=== PATIENT | female | born 1935 | race Caucasian/White ===

== ENCOUNTER 2017-09-17 11:24 | Inpatient (IN) | payer MEDICARE ==
[2017-09-17] MEDS ORDERED: ACETAMINOPHEN 325 MG TABLET PO ONE (11:30)
[2017-09-17] MEDS ORDERED: IPRATROPIUM BROMIDE 0.02% NEB 0.5 MG/2.5 ML AMPUL NEB ONE (11:32)
[2017-09-17] MEDS ORDERED: ALBUTEROL SULFATE 0.083% NEB 2.5 MG/3 ML AMPUL NEB ONE (11:32)
[2017-09-17] MEDS ORDERED: CEFTRIAXONE 1 GM/D5W RTU 50 ML IV ONE (11:49)
[2017-09-17] MEDS ORDERED: AZITHROMYCIN INJ 500 MG VIAL IV ONE (11:49)
[2017-09-17] MEDS: MAGNESIUM SULFATE/D5W 1 GM/100 ML RTUPB IV SCH ×2 (11:59→14:26)
--- NOTE | 2017-09-17 12:01 | ER Document Report ---
ED Respiratory Problem - General Mode of Arrival: Medic Information source: Patient, Emergency Med Personnel <ERIBERTO GATES - Last Filed: 09/17/17 12:18> <FABIANO THOMPSON - Last Filed: 09/23/17 07:02> - General Stated Complaint: SHORTNESS OF BREATH Time Seen by Provider: 09/17/17 11:30 Notes: Patient is a chronically ill appearing 82-year-old female that presents to the emergency department today with complaints of respiratory distress. EMS reports on arrival the patient's oxygen saturation was 43% and she was cyanotic. On arrival here after breathing treatment the patient is saturating at 96-98%. Patient has an extensive smoking history spanning 70 years, still smoking now. Family states the patient has not been in the hospital in 53 years when she gave to her last daughter. Patient recently moved here from [place]. Patient also complains of fevers and a cough. Patient did receive a flushot this year. Patient denies abdominal pain, vomiting, or history of VA/CVA. (ERIBERTO GATES) - Related Data Allergies/Adverse Reactions: No Known Allergies Allergy (Unverified 09/17/17 15:17) Past Medical History - General Information source: Patient - Social History Smoking Status: Current Every Day Smoker Cigarette use (# per day): Yes - extensive smoking history for 70 years Frequency of alcohol use: None Drug Abuse: None Lives with: Family Family History: Reviewed & Not Pertinent Pulmonary Medical History: Reports: Hx COPD Surgical Hx: Negative <ERIBERTO GATES - Last Filed: 09/17/17 12:18> Review of Systems - Review of Systems Constitutional: See HPI, Fever EENT: No symptoms reported Cardiovascular: No symptoms reported Respiratory: See HPI, Cough, Short of breath Gastrointestinal: denies: Abdominal pain, Vomiting Genitourinary: No symptoms reported Female Genitourinary: No symptoms reported Musculoskeletal: No symptoms reported Skin: No symptoms reported Hematologic/Lymphatic: No symptoms reported Neurological/Psychological: No symptoms reported -: Yes All other systems reviewed and negative <ERIBERTO GATES - Last Filed: 09/17/17 12:18> Physical Exam <ERIBERTO GATES - Last Filed: 09/17/17 12:18> <FABIANO THOMPSON - Last Filed: 09/23/17 07:02> - Vital signs Vitals: Resp BP Pulse Ox 26 H 149/65 H 96 09/17/17 11:27 09/17/17 11:27 09/17/17 11:27 - Notes Notes: Physical Exam: General: Alert, frail, cachectic. HEENT: Normocephalic. Atraumatic. PERRL. Extraocular movements intact. Oropharynx clear. Neck: Supple. Non-tender. Respiratory: Respiratory distress on scene according to EMS. Oxygen saturation 96-98% currently with breathing treatment. Intercostal retractions, mild tachypnea, coarse breath sounds throughout bilaterally. Cardiovascular: Mildly tachycardic, regular rhythm. Abdominal: Normal Inspection. Non-tender. No distension. Normal Bowel Sounds. Back: Non-tender. No deformity or step off. Extremities: Moves all four extremities. Upper extremities: Normal inspection. Normal ROM. Lower extremities: Normal inspection. No edema. Normal ROM. Neurological: Normal cognition. AAOx4. Normal speech. Psychological: Normal affect. Normal Mood. Skin: Warm. Dry. Normal color. (ERIBERTO GATES) Course - Laboratory Result Diagrams: 09/17/17 11:47 09/17/17 11:47 <ERIBERTO GATES - Last Filed: 09/17/17 12:18> - Laboratory Result Diagrams: 09/23/17 04:00 09/23/17 04:00 - Diagnostic Test Radiology reviewed: Image reviewed - EKG Interpretation by Ak Rate: Tachycardia <FABIANO THOMPSON - Last Filed: 09/23/17 07:02> - Re-evaluation Re-evalutation: 09/17/17 14:33 Patient shows pneumonia on chest x-ray. Patient became altered during emergency room stay CO2 found to be 70 BiPAP was placed with improvement in mental status. Patient being treated for community-acquired pneumonia with ceftriaxone and azithromycin. Discussed case with Dr. Mata who will accept patient (FABIANO THOMPSON) - Vital Signs Vital signs: Temp Pulse Resp BP Pulse Ox 97.8 F 76 23 H 129/68 H 91 L 09/23/17 03:08 09/23/17 04:15 09/23/17 04:15 09/23/17 03:08 09/23/17 04:15 - Laboratory Laboratory results interpreted by me: 09/17/17 09/17/17 09/17/17 11:47 11:47 11:47 WBC 14.3 H Seg Neuts % (Manual) 83 H Band Neutrophils % 2 L Lymphocytes % (Manual) 6 L Metamyelocytes % 1 H Abs Neuts (Manual) 12.3 H Carbonic Acid ABG pH ABG pCO2 ABG pO2 ABG HCO3 ABG Total CO2 ABG O2 Saturation VBG pH VBG pCO2 Sodium 136.6 L Chloride 93 L Carbon Dioxide 35 H BUN 52 H Creatinine 1.40 H Est GFR ( Amer) 43 L Est GFR (Non-Af Amer) 36 L Glucose 137 H AST 53 H NT-Pro-B Natriuret Pep 3040 H Total Protein 6.2 L Urine Protein Urine Glucose (UA) Urine Blood 09/17/17 09/17/17 09/17/17 11:47 13:21 15:05 WBC Seg Neuts % (Manual) Band Neutrophils % Lymphocytes % (Manual) Metamyelocytes % Abs Neuts (Manual) Carbonic Acid 1.61 H 2.04 H ABG pH 7.29 L 7.24 L ABG pCO2 53.5 H 67.7 H ABG pO2 66.5 L 108.0 H ABG HCO3 28.2 H ABG Total CO2 26.7 H 30.3 H ABG O2 Saturation 90.7 L VBG pH 7.25 L VBG pCO2 70.3 H* Sodium Chloride Carbon Dioxide BUN Creatinine Est GFR ( Amer) Est GFR (Non-Af Amer) Glucose AST NT-Pro-B Natriuret Pep Total Protein Urine Protein Urine Glucose (UA) Urine Blood 09/17/17 15:15 WBC Seg Neuts % (Manual) Band Neutrophils % Lymphocytes % (Manual) Metamyelocytes % Abs Neuts (Manual) Carbonic Acid ABG pH ABG pCO2 ABG pO2 ABG HCO3 ABG Total CO2 ABG O2 Saturation VBG pH VBG pCO2 Sodium Chloride Carbon Dioxide BUN Creatinine Est GFR ( Amer) Est GFR (Non-Af Amer) Glucose AST NT-Pro-B Natriuret Pep Total Protein Urine Protein 100 H Urine Glucose (UA) 50 H Urine Blood SMALL H Discharge <ERIBERTO GATES - Last Filed: 09/17/17 12:18> - Discharge Admitting Provider: Mata Unit Admitted: IMCU <FABIANO THOMPSON - Last Filed: 09/23/17 07:02> - Discharge Condition: Critical Disposition: ADMITTED INPATIENT Scribe Attestation: 09/23/17 07:02 I personally performed the services described in the documentation, reviewed and edited the documentation which was dictated to the scribe in my presence, and it accurately records my words and actions. (FABIANO THOMPSON) Scribe Documentation - Scribe Written by Scribe:: Hans Hood, 09/17/2017 1220 acting as scribe for :: Placido <ERIBERTO GATES - Last Filed: 09/17/17 12:18>
[2017-09-17 12:02] LABS: HEMATOCRIT 44.5 % (36.0-47.0); MEAN CORPUSCULAR HEMOGLOBIN 31.7 pg (27.0-33.4); MEAN CORPUSCULAR HGB CONC 33.8 g/dL (32.0-36.0); MEAN CORPUSCULAR VOLUME 94 fl (80-97); PLATELET COUNT 201 10^3/uL (150-450); RED BLOOD COUNT 4.75 10^6/uL (3.72-5.28); WHITE BLOOD COUNT 14.3 10^3/uL (4.0-10.5)
[2017-09-17 12:09] LABS: INTERNATIONAL RATION (INR) 0.83; PROTHROMBIN TIME 12.1 SEC (11.4-15.4)
[2017-09-17 12:21] LABS: ABSOLUTE LYMPHOCYTES# (MANUAL) 0.9 10^3/uL (0.5-4.7); ABSOLUTE MONOCYTES # (MANUAL) 1.1 10^3/uL (0.1-1.4); ABSOLUTE NEUTROPHILS# (MANUAL) 12.3 10^3/uL (1.7-8.2); BAND NEUTROPHILS % (MANUAL) 2 % (3-5); BASOPHILS % (MANUAL) 0 % (0-2); EOSINOPHILS % (MANUAL) 0 % (0-6); LYMPHOCYTES % (MANUAL) 6 % (13-45); METAMYELOCYTES % (MANUAL) 1 % (0); MONOCYTES % (MANUAL) 8 % (3-13); SEGMENTED NEUTROPHILS % (MAN) 83 % (42-78); TOTAL CELLS COUNTED 100
[2017-09-17 12:22] LABS: ANISOCYTOSIS SLIGHT; PLATELET COMMENT ADEQUATE; TOXIC GRANULATION SLIGHT
[2017-09-17 12:25] LABS: ALANINE AMINOTRANSFERASE 46 U/L (9-52); ALBUMIN 3.7 g/dL (3.5-5.0); ALKALINE PHOSPHATASE 93 U/L (38-126); ANION GAP 9 (5-19); ASPARTATE AMINO TRANSFERASE 53 U/L (14-36); BILIRUBIN,DIRECT 0.4 mg/dL (0.0-0.4); BILIRUBIN,TOTAL 0.4 mg/dL (0.2-1.3); BLOOD UREA NITROGEN 52 mg/dL (7-20); CALCIUM 9.3 mg/dL (8.4-10.2); CARBON DIOXIDE 35 mmol/L (22-30); CHLORIDE 93 mmol/L (98-107); GLUCOSE 137 mg/dL (75-110); POTASSIUM 3.6 mmol/L (3.6-5.0); SODIUM 136.6 mmol/L (137-145); TOTAL PROTEIN 6.2 g/dL (6.3-8.2)
--- NOTE | 2017-09-17 12:26 | RADIOLOGY REPORT (SQ) ---
EXAM DESCRIPTION: CHEST SINGLE VIEW portable COMPLETED DATE/TIME: 09/17/2017 12:10 pm REASON FOR STUDY: sob, fever COMPARISON: None. EXAM PARAMETERS: NUMBER OF VIEWS: One view. TECHNIQUE: Single frontal radiographic view of the chest acquired. Portable RADIATION DOSE: NA LIMITATIONS: None. FINDINGS: LUNGS AND PLEURA: Areas of density are noted in the left mid and lower lung field, with th e history of fever, concerning for pneumonia. Needs followup imaging to ensure clearing and exclude underlying lesion. Right lung field is clear. MEDIASTINUM AND HILAR STRUCTURES: No masses. Contour normal. Partially obscured by scoliosis. HEART AND VASCULAR STRUCTURES: Heart normal in size. Normal vasculature. BONES: Mild scoliosis thoracic spine, convex to to the right. HARDWARE: None in the chest. OTHER: No other significant finding. IMPRESSION: Areas of density left mid and lower lung field, concerning for pneumonia. Need follow-up imaging to ensure clearingand exclude underlying lesion. TECHNICAL DOCUMENTATION: JOB ID: [id number] [employer]- All Rights Reserved Reading location - IP/workstation name: [email or web address]
[2017-09-17 12:39] LABS: TROPONIN I 1.05 ng/mL
[2017-09-17] MEDS ORDERED: CEFTRIAXONE SODIUM 1,000 MG in NORMAL SALINE 100 ML IV ONE (13:00)
[2017-09-17 13:08] LABS: VENOUS BLOOD BASE EXCESS 0.2 mmol/L; VENOUS BLOOD HCO3 29.8 mmol/L (20-32); VENOUS BLOOD PH 7.25 (7.30-7.42)
[2017-09-17 13:13] LABS: VENOUS BLOOD PCO2 70.3 mmHg (35-63)
--- NOTE | 2017-09-17 13:26 | EKG REPORT ---
SEVERITY:- ABNORMAL ECG - SINUS TACHYCARDIA BIATRIAL ABNORMALITIES PROBABLE INFERIOR INFARCT, OLD CONSIDER ANTERIOR INFARCT : Confirmed by: Campbell Robbins MD 17-Sep-2017 13:24:53
[2017-09-17 13:47] LABS: ARTERIAL BLOOD BASE EXCESS -2.3 mmol/L; ARTERIAL BLOOD H2CO3 1.61 mmol/L (1.05-1.35); ARTERIAL BLOOD O2 SATURATION 90.7 % (94-98); ARTERIAL BLOOD PCO2 53.5 mmHg (35-45); ARTERIAL BLOOD PH 7.29 (7.35-7.45); ARTERIAL BLOOD PO2 66.5 mmHg (80-100); ARTERIAL BLOOD TOTAL CO2 26.7 mmol/L (21-25)
[2017-09-17 13:48] LABS: ARTERIAL BLOOD FIO2 40%
[2017-09-17] MEDS ORDERED: IPRATROPIUM/ALBUTEROL 0.5-2.5 MG/3 ML AMPUL NEB STA (14:59)
[2017-09-17] MEDS ORDERED: ALBUTEROL SULFATE 0.083% NEB 2.5 MG/3 ML AMPUL NEB PRN (15:00)
[2017-09-17] MEDS ORDERED: VANCOMYCIN HCL INJ 1000 MG VIAL IV SCH (15:00)
[2017-09-17] MEDS ORDERED: PIPERACILLIN/TAZOBACTAM 3.375 GM VIAL IV SCH (15:00)
[2017-09-17] MEDS ORDERED: HYDRALAZINE HCL INJ/PF 20 MG/1 ML SDV IV PRN (15:01)
[2017-09-17] MEDS ORDERED: ACETAMINOPHEN 650 MG SUPP.RECT PR PRN (15:02)
[2017-09-17 15:28] LABS: ARTERIAL BLOOD BASE EXCESS -0.8 mmol/L; ARTERIAL BLOOD FIO2 50%; ARTERIAL BLOOD H2CO3 2.04 mmol/L (1.05-1.35); ARTERIAL BLOOD HCO3 28.2 mmol/L (20-26); ARTERIAL BLOOD O2 SATURATION 96.9 % (94-98); ARTERIAL BLOOD PCO2 67.7 mmHg (35-45); ARTERIAL BLOOD PH 7.24 (7.35-7.45); ARTERIAL BLOOD TOTAL CO2 30.3 mmol/L (21-25)
[2017-09-17 15:58] LABS: APPEARANCE,URINE SLIGHTLY-CLOUDY; BILIRUBIN,URINE NEGATIVE (NEGATIVE); COLOR,URINE YELLOW; GLUCOSE, URINE 50 mg/dL (NEGATIVE); KETONES,URINE NEGATIVE (NEGATIVE); LEUKOCYTE ESTERASE,URINE NEGATIVE (NEGATIVE); NITRITE,URINE NEGATIVE (NEGATIVE); PROTEIN,URINE 100 mg/dL (NEGATIVE); URINE SPECIFIC GRAVITY 1.014; UROBILINOGEN,URINE NEGATIVE mg/dL (<2.0)
[2017-09-17] MEDS ORDERED: HYDROCORTISONE SOD SUCCINATE INJ/PF 100 MG/2 ML SDV IV ONE (16:00)
--- NOTE | 2017-09-17 16:40 | PDOC H&P ---
History of Present Illness Admission Date/PCP: 09/17/2017 MACHO LIRA MD Patient complains of: Daughter found her mother confused, with blue lips and short of breath History of Present Illness: TIFFANIE MEIER is a 82 year old female with PMH of possible Afib on Diltiazem per family, HTN, COPD (only using an albuterol inhaler at home), and continued Tobacco use. Patient's family describes her as normally active and independent. She was helping to mop a floor on a prior day. Patient is now obtunded at the time of the exam, supported on BIPAP with hypercapnea, hopoxic respiratory failure. Family describes her as complaining of getting a cold several days ago. They describe a productive cough with yellow sputum, and a temperature elevation of 99.7. She was noted to have a temperature of 101 in the ED. CXR was consistent with PNA, and her BP was 70s/50s, and tachcardia present, consistent with Septic Shock picture with a PNA source. Patient was responding to limited fluid boluses in the ED, after approximately 400cc, her BP was 100/50 and HR in 80s. I will start stress dose steroids. Family at the bedside states that patient is a Full Code. We will monitor her in the ICU. She is not currently on pressors, but this is a possiblity. Her Afib is rate controled, in the 80s. Her initial lactic acid is non-elevated. Her BNP is elevated, along with her troponin x1. Will trend her troponins. Her family denied any complaints of chest pain during her presentation. Cardiology was consulted, TTE has been ordered. Blood cultures pending, and patient received Azithromycin/Rocephin in ED, but will be continued on Vancomycin/Levaquin/Zosyn after admission. Past Medical History Cardiac Medical History: Reports: Atrial Fibrillation, Hypertension Denies: Congestive Heart Failure, Hyperlipidema Pulmonary Medical History: Reports: Chronic Obstructive Pulmonary Disease (COPD) Denies: Intubation Endocrine Medical History: Denies: Diabetes Mellitus Type 1, Diabetes Mellitus Type 2 Renal/ Medical History: Denies: Chronic Kidney Disease, Nephrolithiasis GI Medical History: Denies: Cirrhosis Past Surgical History Past Surgical History: Reports: None Social History Lives with: Family - her daughter and grand daughter Smoking Status: Current Every Day Smoker Frequency of Alcohol Use: None Hx Recreational Drug Use: No Hx Prescription Drug Abuse: No Family History Family History: COPD, Hypertension Parental Family History Reviewed: Yes - both copd and HTN was consistent in her family hx Children Family History Reviewed: No Sibling(s) Family History Reviewed.: No Medication/Allergy Home Medications: Albuterol Sulfate [Proair HFA Inhalation Aerosol 8.5 gm MDI] 2 puff IH Q4HP PRN 09/17/17 Bimatoprost [Lumigan] 1 drop OU QHS 09/17/17 Diltiazem HCl [Diltiazem 24Hr ER] 180 mg PO DAILY 09/17/17 Hydrochlorothiazide [Hydrochlorothiazide] 25 mg PO DAILY 09/17/17 Olmesartan Medoxomil [Olmesartan Medoxomil] 20 mg PO DAILY 09/17/17 Umeclidinium Brm/Vilanterol Tr [Anoro Ellipta 62.5-25 Mcg INH] 1 puff IH DAILY 09/17/17 Unobtainable [Unobtainable] 09/17/17 Vit A/Vit C/Vit E/Zinc/Copper [Preservision Areds Softgel] 1 cap PO DAILY Allergies/Adverse Reactions: No Known Allergies Allergy (Unverified 09/17/17 15:17) Review of Systems ROS unobtainable: Due to mental status - details obtained from daughter at bedside Constitutional: PRESENT: chills, fatigue, fever(s). ABSENT: headache(s) Eyes: ABSENT: visual disturbances Ears: ABSENT: hearing changes Nose, Mouth, and Throat: ABSENT: headache(s), vertigo Cardiovascular: ABSENT: edema, orthropnea Respiratory: PRESENT: dyspnea. ABSENT: cough, hemoptysis Gastrointestinal: ABSENT: coffee ground emesis, hematemesis Genitourinary: PRESENT: hematuria. ABSENT: dysuria Neurological: PRESENT: confusion, weakness. ABSENT: abnormal speech, convulsions, focal weakness, lack of coordination, vertigo Psychiatric: ABSENT: anxiety, depression Endocrine: ABSENT: cold intolerance, heat intolerance Hematologic/Lymphatic: ABSENT: easy bleeding, easy bruising Physical Exam Vital Signs: Temp Pulse Resp BP Pulse Ox 17 95 09/17/17 14:05 09/17/17 14:05 Intake & Output 09/16/17 09/17/17 09/18/17 06:59 06:59 06:59 Weight 49.5 kg General appearance: PRESENT: disheveled, mild distress. ABSENT: cooperative Head exam: PRESENT: atraumatic, normocephalic Eye exam: PRESENT: EOMI, PERRLA Ear exam: PRESENT: normal external ear exam. ABSENT: bleeding Mouth exam: PRESENT: moist, neck supple. ABSENT: dry mucosa, laceration Neck exam: ABSENT: JVD, meningismus, tenderness, thyromegaly Respiratory exam: PRESENT: decreased breath sounds, prolonged expiratory phas, wheezes. ABSENT: accessory muscle use, crackles, rales, rhonchi, stridor Cardiovascular exam: PRESENT: irregular rhythm, +S1, +S2. ABSENT: bradycardia, tachycardia Pulses: PRESENT: normal radial pulses, +2 pedal pulses bilateral Vascular exam: PRESENT: normal capillary refill. ABSENT: pallor GI/Abdominal exam: PRESENT: normal bowel sounds, soft. ABSENT: ascites, distended, guarding, Bauer's sign, organolmegaly, rebound, rigid Extremities exam: ABSENT: clubbing, joint swelling, pedal edema, +2 edema Neurological exam: PRESENT: altered. ABSENT: awake, oriented to person, oriented to place, oriented to time Psychiatric exam: ABSENT: agitated, anxious, appropriate affect Focused psych exam: ABSENT: delusional, paranoid, pressured speech Skin exam: PRESENT: other - vericose veins on bilateral lower extremities. ABSENT: cyanosis, dry, erythema Results Laboratory Results: 09/17/17 11:47 09/17/17 11:47 09/17/17 09/17/17 09/17/17 11:47 11:47 11:47 WBC 14.3 H RBC 4.75 Hgb 15.0 Hct 44.5 MCV 94 MCH 31.7 MCHC 33.8 RDW 14.0 Plt Count 201 Seg Neutrophils % Not Reportable Lymphocytes % Not Reportable Monocytes % Not Reportable Eosinophils % Not Reportable Basophils % Not Reportable Absolute Neutrophils Not Reportable Absolute Lymphocytes Not Reportable Absolute Monocytes Not Reportable Absolute Eosinophils Not Reportable Absolute Basophils Not Reportable Carbonic Acid HCO3/H2CO3 Ratio ABG pH ABG pCO2 ABG pO2 ABG HCO3 ABG O2 Saturation ABG Base Excess VBG pH VBG pCO2 VBG HCO3 VBG Base Excess FiO2 Sodium 136.6 L Potassium 3.6 Chloride 93 L Carbon Dioxide 35 H Anion Gap 9 BUN 52 H Creatinine 1.40 H Est GFR ( Amer) 43 L Est GFR (Non-Af Amer) 36 L Glucose 137 H Lactic Acid 1.4 Calcium 9.3 Magnesium 2.3 Total Bilirubin 0.4 AST 53 H ALT 46 Alkaline Phosphatase 93 Total Protein 6.2 L Albumin 3.7 09/17/17 09/17/17 09/17/17 11:47 13:21 15:05 WBC RBC Hgb Hct MCV MCH MCHC RDW Plt Count Seg Neutrophils % Lymphocytes % Monocytes % Eosinophils % Basophils % Absolute Neutrophils Absolute Lymphocytes Absolute Monocytes Absolute Eosinophils Absolute Basophils Carbonic Acid 1.61 H 2.04 H HCO3/H2CO3 Ratio 15:1 13:1 ABG pH 7.29 L 7.24 L ABG pCO2 53.5 H 67.7 H ABG pO2 66.5 L 108.0 H ABG HCO3 25.0 28.2 H ABG O2 Saturation 90.7 L 96.9 ABG Base Excess -2.3 -0.8 VBG pH 7.25 L VBG pCO2 70.3 H* VBG HCO3 29.8 VBG Base Excess 0.2 FiO2 40% 50% Sodium Potassium Chloride Carbon Dioxide Anion Gap BUN Creatinine Est GFR ( Amer) Est GFR (Non-Af Amer) Glucose Lactic Acid Calcium Magnesium Total Bilirubin AST ALT Alkaline Phosphatase Total Protein Albumin 09/17/17 11:47 Troponin I 1.050 NT-Pro-B Natriuret Pep 3040 H EKG Comments: ekg was repeated, no signs of STEMI in the setting of elevated troponin x1 Impressions: Chest X-Ray 09/17/17 11:31 IMPRESSION: Areas of density left mid and lower lung field, concerning for pneumonia. Need follow-up imaging to ensure clearingand exclude underlying lesion. Assessment & Plan - Diagnosis (1) Septic shock Is this a current diagnosis for this admission?: Yes Plan: admitted to ICU for close monitoring. responding to limited fluid boluses given at present. 1st lactic acid, no elevation. will repeat lactic acid within 6 hours. elevated troponin, possibly secondary to sepsis: Dr. Moreno consulted TTE pending. Continue IVF support, adding stress dose steroids. at present her 70/50s improved to 100/50s. (2) Pneumonia Is this a current diagnosis for this admission?: Yes Plan: Blood cultures x2 taken, pending. in ED she received azithromycin/Rocephin. will continue Vanc/Levaquin/Zosyn supportive BIPAP and IVF support (3) KEITH (acute kidney injury) Is this a current diagnosis for this admission?: Yes Plan: Monitor renal function with IVF support. likely injury secondary to Sepsis. family denies a history of renal failure. (4) Acute respiratory failure with hypoxia and hypercapnia Is this a current diagnosis for this admission?: Yes Plan: BIPAP supported, will monitor in ICU. repeating ABG, now that he has been BIPAP supported for 1 hour. adding scheduled Duonebs, IV steroids. (5) COPD (chronic obstructive pulmonary disease) Is this a current diagnosis for this admission?: Yes Plan: scheduling Duonebs, and IV steroids continue BIPAP support. (6) Hypertension Is this a current diagnosis for this admission?: Yes Plan: holding home medications due to Hypotension at present (7) Atrial fibrillation Is this a current diagnosis for this admission?: Yes Plan: at present she is rate controled w/ HR in 70s-80s. will monitor in ICU. normally takes PO Diltiazem at home. (8) Leukocytosis Is this a current diagnosis for this admission?: Yes Plan: secondary to PNA. monitor (9) Elevated troponin Is this a current diagnosis for this admission?: Yes Plan: consulted cardiology. possibly secondary to sepsis or demand ischemia family denied any complaints of chest pain prior to coming to the hospital. trending troponins, and check a TTE - Time Time Spent: 30 to 50 Minutes - Inpatient Certification Based on my medical assessment, after consideration of the patient's comorbidities, presenting symptoms, or acuity I expect that the services needed warrant INPATIENT care.: Yes I certify that my determination is in accordance with my understanding of Medicare's requirements for reasonable and necessary INPATIENT services [42 CFR 412.3e].: Yes Medical Necessity: Need Close Monitoring Due to Risk of Patient Decompensation, Need For IV Fluids, Need For Continuous Telemetry Monitoring
[2017-09-17] MEDS ORDERED: LEVOFLOXACIN 500 MG/D5W RTU 500 MG/100 ML RTUPB IV ONE (17:00)
--- NOTE | 2017-09-17 17:24 | EKG REPORT ---
SEVERITY:- ABNORMAL ECG - SINUS RHYTHM PACS VENTRICULAR BIGEMINY BIATRIAL ABNORMALITIES BORDERLINE IVCD WITH LAD PROBABLE INFERIOR INFARCT, OLD CONSIDER ANTERIOR INFARCT LATERAL LEADS ARE ALSO INVOLVED : Confirmed by: Campbell Robbins MD 17-Sep-2017 17:23:52
[2017-09-17] MEDS: PIPERACILLIN SODIUM/TAZOBACTAM 3.375 GM in NORMAL SALINE 100 ML IV SCH ×2 (18:13→23:13)
[2017-09-17 18:32] LABS: ARTERIAL BLOOD H2CO3 1.71 mmol/L (1.05-1.35); ARTERIAL BLOOD HCO3 25.8 mmol/L (20-26); ARTERIAL BLOOD O2 SATURATION 97.5 % (94-98); ARTERIAL BLOOD PCO2 56.9 mmHg (35-45); ARTERIAL BLOOD PH 7.27 (7.35-7.45); ARTERIAL BLOOD PO2 112.4 mmHg (80-100); ARTERIAL BLOOD TOTAL CO2 27.5 mmol/L (21-25)
[2017-09-17] MEDS ORDERED: NORMAL SALINE 1000 ML 1,000 ML IV PRN (18:34)
[2017-09-17 18:37] LABS: ARTERIAL BLOOD FIO2 40%
[2017-09-17] MEDS ORDERED: ACETAMINOPHEN 325 MG TABLET PO PRN (18:39)
[2017-09-17] MEDS: IPRATROPIUM BROMIDE 0.02% NEB 0.5 MG/2.5 ML AMPUL NEB SCH (19:57)
[2017-09-17] MEDS: LEVALBUTEROL HCL NEB 1.25 MG/3 ML AMPUL NEB SCH (19:57)
[2017-09-17] MEDS ORDERED: NORMAL SALINE 1000 ML 1,000 ML IV ONE (20:15)
--- NOTE | 2017-09-17 20:41 | Progress Note ---
Provider Note Provider Note: Sepsis second note. patient was evaluated within 6 hours of admission. She was responding well to treatment, BP was 112/60s, MAP 77. she was mentating well, Alert and oriented x3. Elevated troponin was flat at 1.0 approximately. Denied chest pain. Will continue IVF support and stress steroid support. Continue broad spectrum antibiotics. Continue BIPAP with increased RR settings to target reducing her pCO2. Good perfusion on exam. Good cappillary refill, good skin color, 2+ radial pulses bilaterally, NSR with regular rate
[2017-09-17] MEDS: VANCOMYCIN HCL 500 MG in DEXTROSE 5%-WATER 100 ML IV SCH (21:24)
[2017-09-17] MEDS: HYDROCORTISONE SOD SUCCINATE INJ/PF 100 MG/2 ML SDV IV SCH (21:33)
[2017-09-18] MEDS: LEVALBUTEROL HCL NEB 1.25 MG/3 ML AMPUL NEB SCH ×6 (00:25→21:14)
[2017-09-18] MEDS: IPRATROPIUM BROMIDE 0.02% NEB 0.5 MG/2.5 ML AMPUL NEB SCH ×6 (00:25→21:15)
[2017-09-18] MEDS ORDERED: NORMAL SALINE 500 ML IV ONE (01:30)
[2017-09-18 04:25] LABS: HEMATOCRIT 40.2 % (36.0-47.0); HEMOGLOBIN 13.2 g/dL (12.0-15.5); MEAN CORPUSCULAR HEMOGLOBIN 30.8 pg (27.0-33.4); MEAN CORPUSCULAR HGB CONC 32.9 g/dL (32.0-36.0); MEAN CORPUSCULAR VOLUME 94 fl (80-97); PLATELET COUNT 166 10^3/uL (150-450); RED CELL DISTRIBUTION WIDTH 13.8 % (11.5-14.0)
[2017-09-18 04:46] LABS: ALANINE AMINOTRANSFERASE 49 U/L (9-52); ALBUMIN 2.6 g/dL (3.5-5.0); ALKALINE PHOSPHATASE 64 U/L (38-126); ANION GAP 6 (5-19); ASPARTATE AMINO TRANSFERASE 48 U/L (14-36); BILIRUBIN,DIRECT 0.2 mg/dL (0.0-0.4); BILIRUBIN,TOTAL 0.2 mg/dL (0.2-1.3); BLOOD UREA NITROGEN 48 mg/dL (7-20); CALCIUM 7.9 mg/dL (8.4-10.2); CARBON DIOXIDE 32 mmol/L (22-30); CHLORIDE 102 mmol/L (98-107); GLUCOSE 113 mg/dL (75-110); SODIUM 139.9 mmol/L (137-145); TOTAL PROTEIN 4.9 g/dL (6.3-8.2)
[2017-09-18 04:53] LABS: FREE T4 (FREE THYROXINE) 1.11 ng/dL (0.78-2.19)
[2017-09-18 04:57] LABS: ABSOLUTE LYMPHOCYTES# (MANUAL) 0.4 10^3/uL (0.5-4.7); ABSOLUTE MONOCYTES # (MANUAL) 1.3 10^3/uL (0.1-1.4); ABSOLUTE NEUTROPHILS# (MANUAL) 12.3 10^3/uL (1.7-8.2); BAND NEUTROPHILS % (MANUAL) 7 % (3-5); BASOPHILS % (MANUAL) 0 % (0-2); EOSINOPHILS % (MANUAL) 0 % (0-6); LYMPHOCYTES % (MANUAL) 3 % (13-45); MONOCYTES % (MANUAL) 9 % (3-13); SEGMENTED NEUTROPHILS % (MAN) 81 % (42-78); TOTAL CELLS COUNTED 100
[2017-09-18 04:59] LABS: BURR CELLS 1+; PLATELET COMMENT ADEQUATE; PLATELET LARGE PRESENT; POIKILOCYTOSIS 1+; SCHISTOCYTES SLIGHT; TEAR DROP CELLS 1+; TOXIC GRANULATION SLIGHT; TOXIC VACUOLATION PRESENT
[2017-09-18 05:07] LABS: THYROID STIMULATING HORMONE 2.29 uIU/mL (0.47-4.68)
[2017-09-18] MEDS: HYDROCORTISONE SOD SUCCINATE INJ/PF 100 MG/2 ML SDV IV SCH ×3 (06:12→22:09)
[2017-09-18] MEDS: PIPERACILLIN SODIUM/TAZOBACTAM 3.375 GM in NORMAL SALINE 100 ML IV SCH ×4 (06:12→23:20)
[2017-09-18 06:41] LABS: ARTERIAL BLOOD BASE EXCESS -1.2 mmol/L; ARTERIAL BLOOD H2CO3 1.51 mmol/L (1.05-1.35); ARTERIAL BLOOD HCO3 25.5 mmol/L (20-26); ARTERIAL BLOOD O2 SATURATION 93.8 % (94-98); ARTERIAL BLOOD PCO2 50.1 mmHg (35-45); ARTERIAL BLOOD PH 7.32 (7.35-7.45); ARTERIAL BLOOD PO2 74.6 mmHg (80-100)
[2017-09-18 06:43] LABS: ARTERIAL BLOOD FIO2 40%
--- NOTE | 2017-09-18 09:12 | RADIOLOGY REPORT (SQ) ---
EXAM DESCRIPTION: CHEST SINGLE VIEW COMPLETED DATE/TIME: 09/18/2017 6:46 am REASON FOR STUDY: pneumonia COMPARISON: Previous day. NUMBER OF VIEWS: One view. TECHNIQUE: Single frontal radiographic image of the chest acquired. LIMITATIONS: None. FINDINGS: LUNGS AND PLEURA: Interval increase in size of abnormal density lateral to the left hilum. There are associated air bronchograms. There is a background of COPD. No effusions MEDIASTINUM AND HEART: Stable heart size and mediastinal structures. BONY STRUCTURES: No acute findings. HARDWARE: None. OTHER: No other significant finding. IMPRESSION: Rehydration versus progressing pneumonia left upper lobe or superior segment left lower lobe. TECHNICAL DOCUMENTATION: JOB ID: [id number] Reading location - IP/workstation name: [email or web address]
[2017-09-18 10:33] LABS: HEMATOCRIT 42.2 % (36.0-47.0); HEMOGLOBIN 13.9 g/dL (12.0-15.5); MEAN CORPUSCULAR HGB CONC 32.8 g/dL (32.0-36.0); MEAN CORPUSCULAR VOLUME 94 fl (80-97); PLATELET COUNT 184 10^3/uL (150-450); RED BLOOD COUNT 4.47 10^6/uL (3.72-5.28); RED CELL DISTRIBUTION WIDTH 14.1 % (11.5-14.0); WHITE BLOOD COUNT 17.2 10^3/uL (4.0-10.5)
[2017-09-18 10:42] LABS: ALBUMIN 2.9 g/dL (3.5-5.0); ANION GAP 8 (5-19); BLOOD UREA NITROGEN 43 mg/dL (7-20); CALCIUM 8.1 mg/dL (8.4-10.2); CARBON DIOXIDE 31 mmol/L (22-30); CHLORIDE 102 mmol/L (98-107); GLUCOSE 112 mg/dL (75-110); PHOSPHORUS 3.7 mg/dL (2.5-4.5); POTASSIUM 3.1 mmol/L (3.6-5.0)
[2017-09-18 10:53] LABS: ABSOLUTE LYMPHOCYTES# (MANUAL) 0.3 10^3/uL (0.5-4.7); ABSOLUTE MONOCYTES # (MANUAL) 1.5 10^3/uL (0.1-1.4); ABSOLUTE NEUTROPHILS# (MANUAL) 15.3 10^3/uL (1.7-8.2); BAND NEUTROPHILS % (MANUAL) 8 % (3-5); BASOPHILS % (MANUAL) 0 % (0-2); EOSINOPHILS % (MANUAL) 0 % (0-6); LYMPHOCYTES % (MANUAL) 2 % (13-45); MONOCYTES % (MANUAL) 9 % (3-13); SEGMENTED NEUTROPHILS % (MAN) 81 % (42-78); TOTAL CELLS COUNTED 100
[2017-09-18 10:54] LABS: PLATELET COMMENT ADEQUATE; RBC MORPHOLOGY COMMENT NORMO-CYTIC/CHROMIC
--- NOTE | 2017-09-18 13:35 | PDOC CONSULTATION ---
Consultation Consult Date: 09/17/17 Attending physician:: FABIANO CHOPRA MD Consult reason:: Atrial fibrillation, elevated troponin I History of Present Illness Admission Date/PCP: 09/17/17 15:56 MACHO LIRA MD Patient complains of: Shortness of breath History of Present Illness: TIFFANIE MEIER is a 82 year old female with PMH of possible Afib on Diltiazem per family, HTN, COPD (only using an albuterol inhaler at home), and continued Tobacco use. Patient's family describes her as normally active and independent. She was helping to mop a floor on a prior day. Patient is now obtunded at the time of the exam, supported on BIPAP with hypercapnea, hopoxic respiratory failure. Family describes her as complaining of getting a cold several days ago. They describe a productive cough with yellow sputum, and a temperature elevation of 99.7. She was noted to have a temperature of 101 in the ED. CXR was consistent with PNA, and her BP was 70s/50s, and tachcardia present, consistent with Septic Shock picture with a PNA source. Patient was responding to limited fluid boluses in the ED, after approximately 400cc, her BP was 100/50 and HR in 80s. I will start stress dose steroids. Family at the bedside states that patient is a Full Code. We will monitor her in the ICU. She is not currently on pressors, but this is a possiblity. Her Afib is rate controled, in the 80s. Her initial lactic acid is non-elevated. Her BNP is elevated, along with her troponin x1. Will trend her troponins. Her family denied any complaints of chest pain during her presentation. Cardiology was consulted, TTE has been ordered. Blood cultures pending, and patient received Azithromycin/Rocephin in ED, but will be continued on Vancomycin/Levaquin/Zosyn after admission. Patient could not add much to this history. Patient being in respiratory distress on high flow oxygen. Past Medical History Cardiac Medical History: Reports: Atrial Fibrillation, Hypertension Denies: Congestive Heart Failure, Hyperlipidema Pulmonary Medical History: Reports: Chronic Obstructive Pulmonary Disease (COPD) Denies: Intubation Endocrine Medical History: Denies: Diabetes Mellitus Type 1, Diabetes Mellitus Type 2 Renal/ Medical History: Denies: Chronic Kidney Disease, Nephrolithiasis GI Medical History: Denies: Cirrhosis Past Surgical History Past Surgical History: Reports: None Social History Information Source: [facility] Records Lives with: Family - her daughter and grand daughter Smoking Status: Current Every Day Smoker Frequency of Alcohol Use: None Hx Recreational Drug Use: No Drugs: None Hx Prescription Drug Abuse: No - Advance Directive Resuscitation Status: Full Code Family History Family History: COPD, Hypertension Parental Family History Reviewed: Yes Children Family History Reviewed: Yes Sibling(s) Family History Reviewed.: Yes Medication/Allergy Home Medications: Albuterol Sulfate [Proair HFA Inhalation Aerosol 8.5 gm MDI] 2 puff IH Q4HP PRN 09/17/17 Bimatoprost [Lumigan] 1 drop OU QHS 09/17/17 Diltiazem HCl [Diltiazem 24Hr ER] 180 mg PO DAILY 09/17/17 Hydrochlorothiazide [Hydrochlorothiazide] 25 mg PO DAILY 09/17/17 Olmesartan Medoxomil [Olmesartan Medoxomil] 20 mg PO DAILY 09/17/17 Umeclidinium Brm/Vilanterol Tr [Anoro Ellipta 62.5-25 Mcg INH] 1 puff IH DAILY 09/17/17 Unobtainable [Unobtainable] 09/17/17 Vit A/Vit C/Vit E/Zinc/Copper [Preservision Areds Softgel] 1 cap PO DAILY Allergies/Adverse Reactions: No Known Allergies Allergy (Unverified 09/17/17 15:17) Review of Systems ROS unobtainable: Due to mental status Physical Exam Vital Signs: Temp Pulse Resp BP Pulse Ox 96.6 F L 76 20 100/53 L 92 09/17/17 19:44 09/17/17 18:15 09/17/17 18:33 09/17/17 18:33 09/17/17 18:33 Intake & Output 09/16/17 09/17/17 09/18/17 06:59 06:59 06:59 Output Total 225 Balance -225 Weight 49.5 kg Exam: GENERAL: well-nourished and in no acute distress. Patient is alert but not oriented to place time or person. HEAD: Atraumatic, normocephalic. EYES: Pupils equal round and reactive to light, extraocular movements intact, sclera anicteric, conjunctiva are normal. ENT: TMs normal, nares patent, oropharynx clear without exudates. Moist mucous membranes. No oral ulcerations or bleeding gums noted NECK: supple without lymphadenopathy or JVD. Trachea is central. No cervical or axillary lymphadenopathy noted. Carotids are 2+ LUNGS: Chest is noted to be emphysematous. Breath sounds bibasilar fine crackles at bases. Scattered bilateral wheezing noted. CHEST: Palpation of chest wall shows no significant chest wall tenderness. HEART: [place] STARCH CRAB, No PSH, 2/6 SORAIDA aortic area, 1/6 marina systolic murmur mitral area, rubs or gallops. ABDOMEN: Soft, no significant tenderness appreciated, normoactive bowel sounds. No guarding, no rebound. No rigidity noted . No masses appreciated. EXTREMITIES: Pedal pulses are 1-2+, no calf tenderness noted, Trace + pedal edema noted. No clubbing or cyanosis. NEUROLOGICAL: Patient is alert but is not able to participate in neurological exam because of patient's current mental status PSYCH: Patient cannot participate in a neurologic and psych exam because of the patient's current mental status SKIN: No significant ecchymosis, rash, ulcerations or signs of pruritus noted. MUSCULOSKELETAL EXAM: No significant joint swelling noted. Results Laboratory Results: 09/17/17 18:17 Carbonic Acid 1.71 H HCO3/H2CO3 Ratio 15:1 ABG pH 7.27 L ABG pCO2 56.9 H ABG pO2 112.4 H ABG HCO3 25.8 ABG O2 Saturation 97.5 ABG Base Excess -2.0 FiO2 40% 09/17/17 17:57 Troponin I 1.080 EKG Comments: Twelve-lead EKG shows sinus rhythm with frequent APCs. No acute ST-T wave changes noted. Impressions: Chest X-Ray 09/17/17 11:31 IMPRESSION: Areas of density left mid and lower lung field, concerning for pneumonia. Need follow-up imaging to ensure clearingand exclude underlying lesion. Assessment & Plan - Diagnosis (1) Acute respiratory failure with hypoxia and hypercapnia Is this a current diagnosis for this admission?: Yes (2) COPD (chronic obstructive pulmonary disease) Is this a current diagnosis for this admission?: Yes (3) Elevated troponin Is this a current diagnosis for this admission?: Yes (4) Hypertension Qualifiers: Hypertension type: essential hypertension Qualified Code(s): I10 - Essential (primary) hypertension Is this a current diagnosis for this admission?: Yes (5) Cardiac dysrhythmia Qualifiers: Premature depolarization type: atrial Is this a current diagnosis for this admission?: Yes (6) Multifocal atrial tachycardia Is this a current diagnosis for this admission?: Yes - Notes Notes: Acute respiratory failure: Related to COPD exacerbation and pneumonia most likely bilateral. Agree with noninvasive ventilation. Agree with oxygenation, bronchodilators, antibiotic and steroids therapy as needed. COPD with exacerbation: Continue above management. Elevated troponin I: Sentinel to be related to severe hypoxemia, transient hypotension etc. Patient did not have any chest pain. Had a long discussion with patient's daughter, it was felt that patient would not be a candidate for any ischemia evaluation given severe COPD which is probably end-stage. No intervention planned at this point unless patient has recurrent chest pain. Hypertension: Blood pressure goal is 140/90 although a more liberal goal is acceptable in this elderly patient. Cardiac dysrhythmia: Did not find any evidence of atrial fibrillation on any of the strips placed on patient's chart. At this point recommend Cardizem therapy. A 2D echo ordered has been pending. - Time Time Spent: 30 to 50 Minutes - CODE STATUS was discussed, patient remains full code. Surrogate decision-maker unchanged. Multiple medical problems were addressed. More than 50% of the time spent coordinating care, discussing management plans with involved caregivers. Management plans discussed with involved personnels. Medical decision making was of moderate to high complexity , patient's has multiple comorbidities. Medications reviewed and adjusted accordingly: Yes
[2017-09-18] MEDS: DILTIAZEM HCL INJ 25 MG/5 ML VIAL IV PRN ×2 (14:43→15:24)
[2017-09-18] MEDS ORDERED: DILTIAZEM HCL/D5W 125 MG/125 ML RTUINJ IV PRN (15:12)
[2017-09-18] MEDS ORDERED: DILTIAZEM HCL INJ 25 MG/5 ML VIAL IV ONE (15:30)
[2017-09-18] MEDS ORDERED: DILTIAZEM HCL 180 MG CAPSULE.CR PO ONE (16:30)
[2017-09-18] MEDS: VANCOMYCIN HCL 500 MG in DEXTROSE 5%-WATER 100 ML IV SCH (18:24)
--- NOTE | 2017-09-18 18:26 | XCELERA REPORT ---
[address] [address] Transthoracic Echocardiogram Report Name: TIFFANIE MEIER Age: 82 yrs Gender: Female : 1935 Patient Status: Inpatient Patient Location: ICU^603^A Study Date: 09/18/2017 09:59 AM Height: 63 in Weight: 115 lb BSA: 1.5 m2 Procedure: A complete two-dimensional transthoracic echocardiogram was performed (2D, M-mode, spectral and color flow Doppler). The study was technically adequate with some images being suboptimal in quality. Reason For Study: heart failure assessment Ordering Physician: DEEPA CHOPRA Performed By: Anh Pope Interpretation Summary The left ventricular ejection fraction is normal. There is mild concentric left ventricular hypertrophy. The left ventricle is grossly normal size. Doppler measurements suggest pseudonormalized left ventricular relaxation, which is associated with grade II/IV or mild to moderate diastolic dysfunction Wall motion cannot be accurately commented on, but no definite regional wall motion abnormalities noted. The right ventricular systolic function is mildly reduced. The right ventricle is mildly dilated. The right atrium is mildly dilated. Borderline left atrial enlargement. Interarterial septum not well visualized and not well dopplered. Cannot comment on ASD/PFO presence. There is a trace to mild amount of mitral regurgitation There is no mitral valve stenosis. There is no aortic valve stenosis No aortic regurgitation is present. There is a mild amount of tricuspid regurgitation There is mild to moderate pulmonary hypertension by echo Right ventricular systolic pressure is estimated to be elevated at 40- 50mmHg. The aortic root is not well visualized but is probably normal size. The inferior vena cava appeared normal and decreased < 50% with respiration (RAP 10-15 mmHg) There is no pericardial effusion. MMode/2D Measurements & Calculations RVDd: 2.9 cm LVIDd: 3.5 cm FS: 40.4 % Ao root diam: 2.7 cm IVSd: 1.1 cm LVIDs: 2.1 cm EDV(Teich): 51.9 ml LVPWd: 1.3 cm ESV(Teich): 14.5 ml Ao root area: 5.7 cm2 EF(Teich): 72.1 % Doppler Measurements & Calculations MV E max vinayak: MV dec slope: Ao V2 max: LV V1 max P.3 cm/sec 121.5 cm/sec 3.4 mmHg MV A max vinayak: 394.1 cm/sec2 Ao max PG: LV V1 max: 158.7 cm/sec MV dec time: 5.9 mmHg 92.2 cm/sec MV E/A: 0.70 0.28 sec PA V2 max: TR max vinayak: 85.8 cm/sec 309.5 cm/sec PA max P.9 mmHg TR max P.3 mmHg Left Ventricle The left ventricle is grossly normal size. There is mild concentric left ventricular hypertrophy. The left ventricular ejection fraction is normal. Doppler measurements suggest pseudonormalized left ventricular relaxation, which is associated with grade II/IV or mild to moderate diastolic dysfunction. Wall motion cannot be accurately commented on, but no definite regional wall motion abnormalities noted. Right Ventricle The right ventricle is mildly dilated. The right ventricular systolic function is mildly reduced. Atria The right atrium is mildly dilated. Borderline left atrial enlargement. Interarterial septum not well visualized and not well dopplered. Cannot comment on ASD/PFO presence. Mitral Valve There is mild mitral leaflet calcification. There is mild mitral annular calcification. There is no mitral valve stenosis. There is a trace to mild amount of mitral regurgitation. Aortic Valve The aortic valve is not well visualized secondary to technical limitations. There is no aortic valve stenosis. No aortic regurgitation is present. Tricuspid Valve The tricuspid valve is not well visualized, but is grossly normal. There is no tricuspid stenosis. There is a mild amount of tricuspid regurgitation. There is mild to moderate pulmonary hypertension by echo. Right ventricular systolic pressure is estimated to be elevated at 40-50mmHg. Pulmonic Valve The pulmonic valve is not well visualized. Great Vessels The aortic root is not well visualized but is probably normal size. The inferior vena cava appeared normal and decreased < 50% with respiration (RAP 10-15 mmHg). Effusions There is no pericardial effusion. : DEEPA CHOPRA > Gina Moreno
[2017-09-18] MEDS ORDERED: DIGOXIN INJ 0.5 MG/2 ML AMPULE IV ONE (19:00)
--- NOTE | 2017-09-18 19:25 | EKG REPORT ---
SEVERITY:- ABNORMAL ECG - ATRIAL FIBRILLATION INFERIOR INFARCT, AGE INDETERMINATE : Confirmed by: Campbell Robbins MD 18-Sep-2017 19:24:30
[2017-09-18] MEDS: LEVOFLOXACIN 250 MG/D5W RTU 250 MG/50 ML RTUPB IV SCH (22:09)
--- NOTE | 2017-09-18 22:09 | PDOC PROGRESS REPORT ---
Subjective Progress Note for:: 09/18/17 Subjective:: Patient able to transition off of the BIPAP onto NC high flow today. She unfortunately developed afib with rvr, and IV diltiazem was given x2. Home diltizem PO restarted. Will place on IV diltizem infusion if needed. OK [place] [facility] [place] She is mentating well. Stable BP, now off of IVF support. Continue stress dose steroids at present. Reason For Visit: SEPSIS SECONDARY TO UTI Physical Exam Vital Signs: Temp Pulse Resp BP Pulse Ox 97.9 F 87 20 124/67 93 09/18/17 19:34 09/18/17 21:15 09/18/17 21:15 09/18/17 18:16 09/18/17 21:15 Intake & Output 09/17/17 09/18/17 09/19/17 06:59 06:59 06:59 Intake Total 3143 1809 Output Total 610 805 Balance 2533 1004 Weight 52.5 kg General appearance: PRESENT: no acute distress, thin Head exam: PRESENT: atraumatic, normocephalic Eye exam: PRESENT: EOMI, PERRLA Mouth exam: PRESENT: moist, neck supple Neck exam: PRESENT: full ROM. ABSENT: JVD, tenderness Respiratory exam: ABSENT: accessory muscle use, crackles, rales, rhonchi Cardiovascular exam: PRESENT: RRR, +S1, +S2 Pulses: PRESENT: normal radial pulses, normal dorsalis pedis pul Vascular exam: PRESENT: normal capillary refill. ABSENT: pallor GI/Abdominal exam: PRESENT: normal bowel sounds. ABSENT: ascites, distended, mass Extremities exam: ABSENT: calf tenderness, joint swelling Musculoskeletal exam: PRESENT: full ROM. ABSENT: deformity Neurological exam: PRESENT: alert, oriented to person, oriented to place, oriented to time, CN II-XII grossly intact Psychiatric exam: ABSENT: agitated, anxious Focused psych exam: ABSENT: catatonic, delusional Skin exam: ABSENT: abrasion, cyanosis Results Laboratory Results: 09/18/17 10:05 09/18/17 10:05 09/18/17 09/18/17 09/18/17 03:54 03:54 03:54 WBC 14.0 H RBC 4.30 Hgb 13.2 Hct 40.2 MCV 94 MCH 30.8 MCHC 32.9 RDW 13.8 Plt Count 166 Seg Neutrophils % Not Reportable Lymphocytes % Not Reportable Monocytes % Not Reportable Eosinophils % Not Reportable Basophils % Not Reportable Absolute Neutrophils Not Reportable Absolute Lymphocytes Not Reportable Absolute Monocytes Not Reportable Absolute Eosinophils Not Reportable Absolute Basophils Not Reportable Carbonic Acid HCO3/H2CO3 Ratio ABG pH ABG pCO2 ABG pO2 ABG HCO3 ABG O2 Saturation ABG Base Excess FiO2 Sodium 139.9 Potassium 4.0 Chloride 102 Carbon Dioxide 32 H Anion Gap 6 BUN 48 H Creatinine 1.45 H Est GFR ( Amer) 42 L Est GFR (Non-Af Amer) 34 L Glucose 113 H Calcium 7.9 L Phosphorus Magnesium 2.7 H Total Bilirubin 0.2 AST 48 H ALT 49 Alkaline Phosphatase 64 Total Protein 4.9 L Albumin 2.6 L TSH 2.29 Free T4 1.11 09/18/17 09/18/17 09/18/17 06:20 10:05 10:05 WBC 17.2 H RBC 4.47 Hgb 13.9 Hct 42.2 MCV 94 MCH 31.0 MCHC 32.8 RDW 14.1 H Plt Count 184 Seg Neutrophils % Not Reportable Lymphocytes % Not Reportable Monocytes % Not Reportable Eosinophils % Not Reportable Basophils % Not Reportable Absolute Neutrophils Not Reportable Absolute Lymphocytes Not Reportable Absolute Monocytes Not Reportable Absolute Eosinophils Not Reportable Absolute Basophils Not Reportable Carbonic Acid 1.51 H HCO3/H2CO3 Ratio 16:1 ABG pH 7.32 L ABG pCO2 50.1 H ABG pO2 74.6 L ABG HCO3 25.5 ABG O2 Saturation 93.8 L ABG Base Excess -1.2 FiO2 40% Sodium 141.0 Potassium 3.1 L Chloride 102 Carbon Dioxide 31 H Anion Gap 8 BUN 43 H Creatinine 1.33 H Est GFR ( Amer) 46 L Est GFR (Non-Af Amer) 38 L Glucose 112 H Calcium 8.1 L Phosphorus 3.7 Magnesium Total Bilirubin AST ALT Alkaline Phosphatase Total Protein Albumin 2.9 L TSH Free T4 09/17/17 09/17/17 17:57 23:45 Troponin I 1.080 0.829 Impressions: Chest X-Ray 09/18/17 06:00 IMPRESSION: Rehydration versus progressing pneumonia left upper lobe or superior segment left lower lobe. Assessment & Plan - Diagnosis (1) Septic shock Is this a current diagnosis for this admission?: Yes (2) Pneumonia Is this a current diagnosis for this admission?: Yes (3) KEITH (acute kidney injury) Is this a current diagnosis for this admission?: Yes (4) Acute respiratory failure with hypoxia and hypercapnia Is this a current diagnosis for this admission?: Yes (5) COPD (chronic obstructive pulmonary disease) Is this a current diagnosis for this admission?: Yes (6) Hypertension Qualifiers: Hypertension type: essential hypertension Qualified Code(s): I10 - Essential (primary) hypertension Is this a current diagnosis for this admission?: Yes (7) Atrial fibrillation Is this a current diagnosis for this admission?: Yes (8) Leukocytosis Is this a current diagnosis for this admission?: Yes (9) Elevated troponin Is this a current diagnosis for this admission?: Yes - Plan Summary Plan Summary: (1) Septic shock Is this a current diagnosis for this admission?: Yes Plan: elevated troponin, possibly secondary to sepsis: Dr. Moreno consulted TTE pending Stable BP, able to wean off Bipap and onto High flow NC (2) Atrial fibrillation with RVR giving IV diltiazem, and starting home dose of diltiazem PO will start IV infusion if continues to be tachycardic (3) Pneumonia Is this a current diagnosis for this admission?: Yes Plan: Blood cultures x2 taken, pending. in ED she received azithromycin/Rocephin. continue Vanc/Levaquin/Zosyn Day 2 BP stable off of IVF at present. continue stress dose steroids, wean soon. CXR shows a more distinct left sided PNA (4) KEITH (acute kidney injury) Is this a current diagnosis for this admission?: Yes Plan: Monitor renal function with IVF support. likely injury secondary to Sepsis. family denies a history of renal failure. improving (5) Acute respiratory failure with hypoxia and hypercapnia Is this a current diagnosis for this admission?: Yes Plan: Now transitioned to high flow NC adding scheduled Duonebs, IV steroids. (6) COPD (chronic obstructive pulmonary disease) Is this a current diagnosis for this admission?: Yes Plan: scheduling Duonebs, and IV steroids (7) Hypertension Is this a current diagnosis for this admission?: Yes Plan: stable BP, adding back home diltiazem (8) Leukocytosis Is this a current diagnosis for this admission?: Yes Plan: secondary to PNA. monitor (9) Elevated troponin Is this a current diagnosis for this admission?: Yes Plan: consulted cardiology. possibly secondary to sepsis or demand ischemia family denied any complaints of chest pain prior to coming to the hospital. trending troponins, and check a TTE
[2017-09-19] MEDS: IPRATROPIUM BROMIDE 0.02% NEB 0.5 MG/2.5 ML AMPUL NEB SCH ×6 (00:23→20:07)
[2017-09-19] MEDS: LEVALBUTEROL HCL NEB 1.25 MG/3 ML AMPUL NEB SCH ×6 (00:24→20:07)
[2017-09-19] MEDS: PIPERACILLIN SODIUM/TAZOBACTAM 3.375 GM in NORMAL SALINE 100 ML IV SCH ×4 (05:04→23:11)
[2017-09-19] MEDS: HYDROCORTISONE SOD SUCCINATE INJ/PF 100 MG/2 ML SDV IV SCH ×3 (05:04→21:34)
[2017-09-19] MEDS ORDERED: DILTIAZEM HCL INJ 25 MG/5 ML VIAL ONE ×2 (05:18→05:20)
[2017-09-19 06:18] LABS: HEMATOCRIT 41.8 % (36.0-47.0); HEMOGLOBIN 13.8 g/dL (12.0-15.5); MEAN CORPUSCULAR HEMOGLOBIN 30.9 pg (27.0-33.4); MEAN CORPUSCULAR HGB CONC 33.1 g/dL (32.0-36.0); MEAN CORPUSCULAR VOLUME 94 fl (80-97); PLATELET COUNT 191 10^3/uL (150-450); RED BLOOD COUNT 4.47 10^6/uL (3.72-5.28); RED CELL DISTRIBUTION WIDTH 14.1 % (11.5-14.0); WHITE BLOOD COUNT 20.3 10^3/uL (4.0-10.5)
[2017-09-19 06:33] LABS: ALBUMIN 2.7 g/dL (3.5-5.0); ANION GAP 7 (5-19); BLOOD UREA NITROGEN 41 mg/dL (7-20); CALCIUM 8.5 mg/dL (8.4-10.2); CARBON DIOXIDE 31 mmol/L (22-30); CHLORIDE 102 mmol/L (98-107); GLUCOSE 127 mg/dL (75-110); PHOSPHORUS 2.9 mg/dL (2.5-4.5); SODIUM 139.9 mmol/L (137-145)
[2017-09-19 06:39] LABS: POTASSIUM 2.9 mmol/L (3.6-5.0)
[2017-09-19] MEDS ORDERED: POTASSIUM CHLORIDE 10 MEQ TABLET.SA PO ONE ×2 (09:00→11:52)
--- NOTE | 2017-09-19 09:48 | RADIOLOGY REPORT (SQ) ---
EXAM DESCRIPTION: CHEST SINGLE VIEW COMPLETED DATE/TIME: 09/19/2017 8:21 am REASON FOR STUDY: pneumonia COMPARISON: Chest films 09/17/2017, 09/18/2017 EXAM PARAMETERS: NUMBER OF VIEWS: One view. TECHNIQUE: Single frontal radiographic view of the chest acquired. RADIATION DOSE: NA LIMITATIONS: None. FINDINGS: LUNGS AND PLEURA: Increased interstitial markings from interstitial edema at both bases. Pulmonary vascular congestion. Trace left pleural effusion. These findings are more prominent than on previous exams. There is dense consolidation versus mass in the left hilum. The patient's acute condition resolves, CT scanning of the chest is recommended for further evaluation. There is consolidation in the left retrocardiac region atelectasis versus pneumonia. MEDIASTINUM AND HILAR STRUCTURES: No masses. Contour normal. HEART AND VASCULAR STRUCTURES: Mild cardiomegaly BONES: No acute findings. HARDWARE: None in the chest. OTHER: No other significant finding. IMPRESSION: Worsening edema or fluid overload with the new trace pleural effusion, interstitial mira a and pulmonary vascular congestion. Dense consolidation left retrocardiac region atelectasis versus pneumonia Fullness of the left hilum, underlying hilar or lung mass cannot be excluded. When the patient's acu te condition resolves, CT chest is recommended for followup TECHNICAL DOCUMENTATION: JOB ID: [id number] [employer]- All Rights Reserved Reading location - IP/workstation name: [email or web address]
--- NOTE | 2017-09-19 11:06 | PDOC PROGRESS REPORT ---
Subjective Progress Note for:: 09/18/17 Subjective:: Patient seems to be doing better with gradual improvement. Pt is denying any chest arm or neck discomfort. Patient denying any PND, orthopnea. Patient denied any sustained palpitations, dizziness, syncope, near syncope. Patient denying any fever chills. Patient denying any other significant discomfort. Patient is maintaining sinus rhythm, frequent APCs noted. Review of systems: Rest review of systems negative. Medications: Medications have been reviewed. Reason For Visit: SEPSIS SECONDARY TO UTI Physical Exam Vital Signs: Temp Pulse Resp BP Pulse Ox 97.3 F 85 22 H 138/67 H 95 09/18/17 05:34 09/18/17 08:17 09/18/17 13:16 09/18/17 13:16 09/18/17 13:16 Intake & Output 09/17/17 09/18/17 09/19/17 06:59 06:59 06:59 Intake Total 3143 Output Total 610 400 Balance 2533 -400 Weight 52.5 kg Exam: GENERAL: well-nourished and in no acute distress. Alert and oriented x2 HEAD: Atraumatic, normocephalic. EYES: Pupils equal round and reactive to light, extraocular movements intact, sclera anicteric, conjunctiva are normal. ENT: TMs normal, nares patent, oropharynx clear without exudates. Moist mucous membranes. No oral ulcerations or bleeding gums noted NECK: supple without lymphadenopathy. Trachea is central. No cervical or axillary lymphadenopathy noted. Carotids are 2+, JVD WNL LUNGS: Respiration seems nonlabored, no significant accessory muscle action noted. Bilateral scattered wheezes rales or rhonchi noted. Slight dullness noted left base. Bibasilar fine crackles also noted. CHEST: Palpation of the chest wall shows no significant chest wall tenderness. No other significant abnormalities noted. HEART: [place] [employer], No PSH, 1/6 SORAIDA aortic area, 1/6 marina systolic murmur mitral area, no rubs, no gallops. ABDOMEN: Soft, no significant tenderness appreciated, normoactive bowel sounds. No guarding, no rebound. No rigidity noted . No masses appreciated. EXTREMITIES: Pedal pulses are 1-2+, no calf tenderness noted. No clubbing or cyanosis.trace pedal edema noted NEUROLOGICAL: Focused neurological exam showed no significant neurologic deficit. Normal speech, no focal weakness appreciated. PSYCH: Normal mood, normal affect. Judgment and insight was not checked. SKIN: No significant ecchymosis, skin is noted to be warm. MUSCULOSKELETAL EXAM: No significant acute joint swelling noted. Results Laboratory Results: 09/18/17 10:05 09/18/17 10:05 09/17/17 09/18/17 09/18/17 18:17 03:54 03:54 WBC 14.0 H RBC 4.30 Hgb 13.2 Hct 40.2 MCV 94 MCH 30.8 MCHC 32.9 RDW 13.8 Plt Count 166 Seg Neutrophils % Not Reportable Lymphocytes % Not Reportable Monocytes % Not Reportable Eosinophils % Not Reportable Basophils % Not Reportable Absolute Neutrophils Not Reportable Absolute Lymphocytes Not Reportable Absolute Monocytes Not Reportable Absolute Eosinophils Not Reportable Absolute Basophils Not Reportable Carbonic Acid 1.71 H HCO3/H2CO3 Ratio 15:1 ABG pH 7.27 L ABG pCO2 56.9 H ABG pO2 112.4 H ABG HCO3 25.8 ABG O2 Saturation 97.5 ABG Base Excess -2.0 FiO2 40% Sodium 139.9 Potassium 4.0 Chloride 102 Carbon Dioxide 32 H Anion Gap 6 BUN 48 H Creatinine 1.45 H Est GFR ( Amer) 42 L Est GFR (Non-Af Amer) 34 L Glucose 113 H Calcium 7.9 L Phosphorus Magnesium 2.7 H Total Bilirubin 0.2 AST 48 H ALT 49 Alkaline Phosphatase 64 Total Protein 4.9 L Albumin 2.6 L TSH Free T4 09/18/17 09/18/17 09/18/17 03:54 06:20 10:05 WBC 17.2 H RBC 4.47 Hgb 13.9 Hct 42.2 MCV 94 MCH 31.0 MCHC 32.8 RDW 14.1 H Plt Count 184 Seg Neutrophils % Not Reportable Lymphocytes % Not Reportable Monocytes % Not Reportable Eosinophils % Not Reportable Basophils % Not Reportable Absolute Neutrophils Not Reportable Absolute Lymphocytes Not Reportable Absolute Monocytes Not Reportable Absolute Eosinophils Not Reportable Absolute Basophils Not Reportable Carbonic Acid 1.51 H HCO3/H2CO3 Ratio 16:1 ABG pH 7.32 L ABG pCO2 50.1 H ABG pO2 74.6 L ABG HCO3 25.5 ABG O2 Saturation 93.8 L ABG Base Excess -1.2 FiO2 40% Sodium Potassium Chloride Carbon Dioxide Anion Gap BUN Creatinine Est GFR ( Amer) Est GFR (Non-Af Amer) Glucose Calcium Phosphorus Magnesium Total Bilirubin AST ALT Alkaline Phosphatase Total Protein Albumin TSH 2.29 Free T4 1.11 09/18/17 10:05 WBC RBC Hgb Hct MCV MCH MCHC RDW Plt Count Seg Neutrophils % Lymphocytes % Monocytes % Eosinophils % Basophils % Absolute Neutrophils Absolute Lymphocytes Absolute Monocytes Absolute Eosinophils Absolute Basophils Carbonic Acid HCO3/H2CO3 Ratio ABG pH ABG pCO2 ABG pO2 ABG HCO3 ABG O2 Saturation ABG Base Excess FiO2 Sodium 141.0 Potassium 3.1 L Chloride 102 Carbon Dioxide 31 H Anion Gap 8 BUN 43 H Creatinine 1.33 H Est GFR ( Amer) 46 L Est GFR (Non-Af Amer) 38 L Glucose 112 H Calcium 8.1 L Phosphorus 3.7 Magnesium Total Bilirubin AST ALT Alkaline Phosphatase Total Protein Albumin 2.9 L TSH Free T4 09/17/17 09/17/17 17:57 23:45 Troponin I 1.080 0.829 EKG Comments: Rhythm strips showed predominantly sinus rhythm with frequent APCs. Impressions: Chest X-Ray 09/18/17 06:00 IMPRESSION: Rehydration versus progressing pneumonia left upper lobe or superior segment left lower lobe. Assessment & Plan - Diagnosis (1) Acute respiratory failure with hypoxia and hypercapnia Is this a current diagnosis for this admission?: Yes (2) COPD (chronic obstructive pulmonary disease) Is this a current diagnosis for this admission?: Yes (3) Elevated troponin Is this a current diagnosis for this admission?: Yes (4) Hypertension Qualifiers: Hypertension type: essential hypertension Qualified Code(s): I10 - Essential (primary) hypertension Is this a current diagnosis for this admission?: Yes (5) Hypokalemia Is this a current diagnosis for this admission?: Yes (6) Cardiac dysrhythmia Qualifiers: Premature depolarization type: atrial Is this a current diagnosis for this admission?: Yes (7) Multifocal atrial tachycardia Is this a current diagnosis for this admission?: Yes - Notes Notes: Acute respiratory failure: Related to COPD exacerbation and pneumonia most likely bilateral. Agree with intermittent noninvasive ventilation. Agree with oxygenation, bronchodilators, antibiotic and steroids therapy as needed. COPD with exacerbation: Continue above management. Elevated troponin I: [place] to be related to severe hypoxemia, transient hypotension etc. Patient did not have any chest pain. Had a long discussion with patient's daughter, it was felt that patient would not be a candidate for any ischemia evaluation given severe COPD which is probably end-stage. No intervention planned at this point unless patient has recurrent chest pain. Hypertension: Blood pressure goal is 140/90 although a more liberal goal is acceptable in this elderly patient. Cardiac dysrhythmia: Did not find any evidence of atrial fibrillation on any of the strips placed on patient's chart. At this point recommend Cardizem therapy. A 2D echo ordered has been pending. Hypokalemia: Replace potassium and try maintain potassium and magnesium level in normal range. Addendum: 6:30 PM: In the late afternoon, patient was noted to be in atrial fibrillation with rapid ventricular response. Ordered for IV Cardizem and Cardizem drip. Patient also being placed on p.o. Cardizem. When seen again at 6:30 PM, heart rate was in the 130s. Patient was given IV digoxin 0.5 mg 1 dose as her blood pressure was noted to be somewhat on the low side only in the low 90s. - Time Time with patient: Greater than 35 minutes - CODE STATUS was discussed, patient remains full code. Surrogate decision-maker unchanged. Multiple medical problems were addressed. More than 50% of the time spent coordinating care, discussing management plans with involved caregivers. Management plans discussed with involved personnels. Medical decision making was of moderate to high complexity, patient's has multiple comorbidities. Medications reviewed and adjusted accordingly: Yes
--- NOTE | 2017-09-19 11:10 | PDOC PROGRESS REPORT ---
Subjective Progress Note for:: 09/19/17 Subjective:: Patient was moved last night to the floor. Patient seems to be doing better with gradual improvement. Pt is denying any chest arm or neck discomfort. Patient denying any PND, orthopnea. Patient denied any sustained palpitations, dizziness, syncope, near syncope. Patient denying any fever chills. Patient denying any other significant discomfort. Patient is maintaining sinus rhythm, frequent APCs noted. Review of systems: Rest review of systems negative. Medications: Medications have been reviewed. Reason For Visit: SEPSIS SECONDARY TO UTI Physical Exam Vital Signs: Temp Pulse Resp BP Pulse Ox 97.3 F 92 28 H 148/57 H 92 09/19/17 07:54 09/19/17 08:00 09/19/17 10:05 09/19/17 08:01 09/19/17 10:05 Intake & Output 09/18/17 09/19/17 09/20/17 06:59 06:59 06:59 Intake Total 3143 2259 Output Total 610 1205 Balance 2533 1054 Weight 52.5 kg 55.3 kg Exam: GENERAL: well-nourished and in no acute distress. Alert and oriented x2 HEAD: Atraumatic, normocephalic. EYES: Pupils equal round and reactive to light, extraocular movements intact, sclera anicteric, conjunctiva are normal. ENT: TMs normal, nares patent, oropharynx clear without exudates. Moist mucous membranes. No oral ulcerations or bleeding gums noted NECK: supple without lymphadenopathy. Trachea is central. No cervical or axillary lymphadenopathy noted. Carotids are 2+, JVD WNL LUNGS: Respiration seems nonlabored, no significant accessory muscle action noted. Bibasilar fine crackles, left more than right, scattered bilateral wheezes rales or rhonchi noted. Mild left basal dullness noted on percussion. CHEST: Palpation of the chest wall shows no significant chest wall tenderness. No other significant abnormalities noted. HEART: [place] [employer], No PSH, 1/6 SORAIDA aortic area, 1/6 marina systolic murmur mitral area, no rubs, no gallops. ABDOMEN: Soft, no significant tenderness appreciated, normoactive bowel sounds. No guarding, no rebound. No rigidity noted . No masses appreciated. EXTREMITIES: Pedal pulses are 1-2+, no calf tenderness noted. No clubbing or cyanosis.trace pedal edema noted NEUROLOGICAL: Focused neurological exam showed no significant neurologic deficit. Normal speech, no focal weakness appreciated. PSYCH: Normal mood, normal affect. Judgment and insight not checked. SKIN: No significant ecchymosis, skin is noted to be warm. MUSCULOSKELETAL EXAM: No significant acute joint swelling noted. Results Laboratory Results: 09/19/17 06:02 09/19/17 06:02 09/19/17 09/19/17 06:02 06:02 WBC 20.3 H RBC 4.47 Hgb 13.8 Hct 41.8 MCV 94 MCH 30.9 MCHC 33.1 RDW 14.1 H Plt Count 191 Sodium 139.9 Potassium 2.9 L* Chloride 102 Carbon Dioxide 31 H Anion Gap 7 BUN 41 H Creatinine 1.18 Est GFR ( Amer) 53 L Est GFR (Non-Af Amer) 44 L Glucose 127 H Calcium 8.5 Phosphorus 2.9 Albumin 2.7 L 09/17/17 09/17/17 17:57 23:45 Troponin I 1.080 0.829 EKG Comments: Telemetry shows sinus rhythm with frequent APCs. Yesterday was noted to be in atrial fibrillation with rapid ventricular response. Impressions: Chest X-Ray 09/19/17 06:00 IMPRESSION: Worsening edema or fluid overload with the new trace pleural effusion, interstitial edema and pulmonary vascular congestion. Dense consolidation left retrocardiac region atelectasis versus pneumonia Fullness of the left hilum, underlying hilar or lung mass cannot be excluded. When the patient's acute condition resolves, CT chest is recommended for followup Assessment & Plan - Diagnosis (1) Acute respiratory failure with hypoxia and hypercapnia Is this a current diagnosis for this admission?: Yes (2) COPD (chronic obstructive pulmonary disease) Is this a current diagnosis for this admission?: Yes (3) Elevated troponin Is this a current diagnosis for this admission?: Yes (4) Hypertension Qualifiers: Hypertension type: essential hypertension Qualified Code(s): I10 - Essential (primary) hypertension Is this a current diagnosis for this admission?: Yes (5) Hypokalemia Is this a current diagnosis for this admission?: Yes (6) Cardiac dysrhythmia Qualifiers: Premature depolarization type: atrial Is this a current diagnosis for this admission?: Yes (7) Multifocal atrial tachycardia Is this a current diagnosis for this admission?: Yes - Notes Notes: Acute respiratory failure: Related to COPD exacerbation and pneumonia most likely bilateral. Agree with noninvasive ventilation. Agree with oxygenation, bronchodilators, antibiotic and steroids therapy as needed. Atrial fibrillation with rapid ventricular response: Patient was noted to be in it yesterday afternoon. Today she is back in sinus rhythm. Recommend correcting electrolytes. Do not feel patient needs chronic anticoagulation at this point as these could well be related to COPD exacerbation. Patient also being underweight and elderly has increased risk of bleed. However would recommend DVT prophylaxis. COPD with exacerbation: Continue above management. Elevated troponin I: [place] to be related to severe hypoxemia, transient hypotension etc. Patient did not have any chest pain. Had a long discussion with patient's daughter, it was felt that patient would not be a candidate for any ischemia evaluation given severe COPD which is probably end-stage. No intervention planned at this point unless patient has recurrent chest pain. Hypertension: Blood pressure goal is 140/90 although a more liberal goal is acceptable in this elderly patient. Cardiac dysrhythmia: Yesterday's rhythm strips definitely showed atrial fibrillation. At this point recommend Cardizem therapy, and intermittent digoxin as needed. 2D echo results reviewed. Showed LVEF to be relatively well -preserved. Hypokalemia: Recommend replacement to get potassium level above 4 mEq /L. CHF: BNP noted to be elevated. Most likely related to diastolic dysfunction and possibly some right heart failure. Recommend low-dose diuretics. - Time Time with patient: Greater than 35 minutes - CODE STATUS was discussed, patient remains full code. Surrogate decision-maker unchanged. Multiple medical problems were addressed. More than 50% of the time spent coordinating care, discussing management plans with involved caregivers. Management plans discussed with involved personnels. Medical decision making was of moderate to high complexity, patient's has multiple comorbidities. Medications reviewed and adjusted accordingly: Yes
[2017-09-19] MEDS ORDERED: FUROSEMIDE 20 MG TABLET PO ONE (13:00)
[2017-09-19] MEDS: DILTIAZEM HCL 180 MG CAPSULE.CR PO SCH (17:07)
[2017-09-19] MEDS: VANCOMYCIN HCL 500 MG in DEXTROSE 5%-WATER 100 ML IV SCH (18:35)
--- NOTE | 2017-09-19 19:51 | Physician Advisory Note ---
Physician Advisor ProgressNote .: Pursuant to the plan for [facility], I have reviewed the medical record for this patient. Physician Advisor Statement: Beautiful documentation of KEITH being likely due to sepsis, sepsis being due to PNA, and acute respiratory failure (supported by ABG results; ED nurse documented accessory muscle use initially, which would also be great to mention in DCSummary). Please consider documenting, if you agree: 1. "Pneumonia, suspect gram-____ type, " (Already nicely documented cough, fever, pleuritic CP, SOB, sputum, chills , altered mental status, tachycardia,tachypnea, infiltrate on CXR, ... - but it will be great to mention these findings in the DCSummary, too - again, to cut down on denials.) 2. "acute metabolic encephalopathy due to sepsis, evidenced by disorganized/ disoriented thinking, GCS total 14 in ED" Thanks! MD Janine Physician Advisor Please call or text if ?s - [phone], or use my [facility] email. Nice to have you joint us! *Pneumonia dx now requires documentation of supporting findings: cough, fever, pleuritic CP, dyspnea, sputum, chills, rigors, mental status changes due to PNA , RR>24, tachycardia, crackles, evidence of consolidation, leukocytosis, demonstrable infiltrate by CXR or documentation of reason(s) attending suspects PNA despite no obvious infiltrate, For chart reviewers: pt w/severe sepsis + septic shock, POA, due to PNA, evidenced by AMS, KEITH w/Cr 1.4, WBC 14.3, HR >100, RR24-28 initially, MAP in 50s-60s - as well as the respiratory failure.
--- NOTE | 2017-09-19 20:46 | PDOC PROGRESS REPORT ---
Subjective Progress Note for:: 09/19/17 Subjective:: Patient doing well, receiving a breathing treatment this AM. Continue to rest at night on Bipap support. Able to transition off of her IV diltizem infusion, afib now rate controled. Will wean down on stress dosed steroids. Clinically improving. Elevating leukocytosis likely steroid + pna induced. No growth in blood or urine cultures. Hypokalemic, giving replacement. Reason For Visit: SEPSIS SECONDARY TO UTI Physical Exam Vital Signs: Temp Pulse Resp BP Pulse Ox 97.5 F 93 21 H 133/68 H 91 L 09/19/17 15:20 09/19/17 15:20 09/19/17 15:20 09/19/17 15:20 09/19/17 15:20 Intake & Output 09/18/17 09/19/17 09/20/17 06:59 06:59 06:59 Intake Total 3143 2259 788 Output Total 610 1205 1300 Balance 2533 1054 -512 Weight 52.5 kg 55.3 kg General appearance: PRESENT: no acute distress, cooperative Head exam: PRESENT: atraumatic, normocephalic Eye exam: PRESENT: EOMI, PERRLA Ear exam: PRESENT: normal external ear exam. ABSENT: bleeding Mouth exam: PRESENT: moist, neck supple Neck exam: PRESENT: full ROM. ABSENT: JVD, tenderness Respiratory exam: ABSENT: rales, rhonchi, wheezes Cardiovascular exam: PRESENT: RRR, +S1, +S2 Pulses: PRESENT: normal radial pulses, normal dorsalis pedis pul GI/Abdominal exam: PRESENT: soft. ABSENT: distended, firm, rigid Extremities exam: ABSENT: calf tenderness, joint swelling Musculoskeletal exam: PRESENT: full ROM. ABSENT: deformity Neurological exam: PRESENT: alert, oriented to person, oriented to place, oriented to time, CN II-XII grossly intact Psychiatric exam: ABSENT: agitated, anxious Focused psych exam: ABSENT: delusional, paranoid Skin exam: ABSENT: abrasion, cyanosis Results Laboratory Results: 09/19/17 06:02 09/19/17 06:02 09/19/17 09/19/17 09/19/17 06:02 06:02 06:02 WBC 20.3 H RBC 4.47 Hgb 13.8 Hct 41.8 MCV 94 MCH 30.9 MCHC 33.1 RDW 14.1 H Plt Count 191 Sodium 139.9 Potassium 2.9 L* Chloride 102 Carbon Dioxide 31 H Anion Gap 7 BUN 41 H Creatinine 1.18 Est GFR ( Amer) 53 L Est GFR (Non-Af Amer) 44 L Glucose 127 H Calcium 8.5 Phosphorus 2.9 Magnesium 2.4 H Albumin 2.7 L 09/17/17 09/17/17 17:57 23:45 Troponin I 1.080 0.829 Impressions: Chest X-Ray 09/19/17 06:00 IMPRESSION: Worsening edema or fluid overload with the new trace pleural effusion, interstitial edema and pulmonary vascular congestion. Dense consolidation left retrocardiac region atelectasis versus pneumonia Fullness of the left hilum, underlying hilar or lung mass cannot be excluded. When the patient's acute condition resolves, CT chest is recommended for followup Assessment & Plan - Diagnosis (1) Septic shock Is this a current diagnosis for this admission?: Yes (2) Pneumonia Is this a current diagnosis for this admission?: Yes (3) KEITH (acute kidney injury) Is this a current diagnosis for this admission?: Yes (4) Acute respiratory failure with hypoxia and hypercapnia Is this a current diagnosis for this admission?: Yes (5) COPD (chronic obstructive pulmonary disease) Is this a current diagnosis for this admission?: Yes (6) Hypertension Qualifiers: Hypertension type: essential hypertension Qualified Code(s): I10 - Essential (primary) hypertension Is this a current diagnosis for this admission?: Yes (7) Atrial fibrillation Is this a current diagnosis for this admission?: Yes (8) Leukocytosis Is this a current diagnosis for this admission?: Yes (9) Elevated troponin Is this a current diagnosis for this admission?: Yes - Time Time Spent with patient: 15-24 minutes - Inpatient Certification Based on my medical assessment, after consideration of the patient's comorbidities, presenting symptoms, or acuity I expect that the services needed warrant INPATIENT care.: Yes Medical Necessity: Need for IV Antibiotics, Risk of Complication if Not Cared For in Hospital - Plan Summary Plan Summary: (1) Septic shock resolving, stable vital signs, weaned off of IVF, weaning stress dose steroids. (2) Atrial fibrillation with RVR giving IV diltiazem, and starting home dose of diltiazem PO will start IV infusion if continues to be tachycardic (3) Pneumonia, suspect possible gram negative Blood cultures x2 taken, pending. in ED she received azithromycin/Rocephin. continue Vanc/Levaquin/Zosyn Day 2 BP stable off of IVF at present. continue stress dose steroids, wean soon. CXR shows a more distinct left sided PNA (4) Acute metabolic encephalopathy, secondary to PNA mentation has improved to baseline (5) KEITH (acute kidney injury) improving renal function. now drinking oral fluids. (6) Acute respiratory failure with hypoxia and hypercapnia scheduled Duonebs, IV steroids. continue supportive O2, wean as tolerated (7) COPD (chronic obstructive pulmonary disease) Duonebs, and IV steroids (7) Hypertension stable BP, on home diltiazem (8) Leukocytosis secondary to PNA. monitor (9) Elevated troponin consulted cardiology. possibly secondary to sepsis or demand ischemia family denied any complaints of chest pain prior to coming to the hospital. decreased serial troponins cardiology following (10) Hypokalemia. giving replacements
[2017-09-19] MEDS: LEVOFLOXACIN 250 MG/D5W RTU 250 MG/50 ML RTUPB IV SCH (21:35)
[2017-09-20] MEDS: LEVALBUTEROL HCL NEB 1.25 MG/3 ML AMPUL NEB SCH ×7 (00:25→23:47)
[2017-09-20] MEDS: IPRATROPIUM BROMIDE 0.02% NEB 0.5 MG/2.5 ML AMPUL NEB SCH ×7 (00:25→23:47)
[2017-09-20] MEDS: PIPERACILLIN SODIUM/TAZOBACTAM 3.375 GM in NORMAL SALINE 100 ML IV SCH ×4 (05:09→23:51)
[2017-09-20] MEDS: HYDROCORTISONE SOD SUCCINATE INJ/PF 100 MG/2 ML SDV IV SCH (05:10)
[2017-09-20 05:58] LABS: HEMATOCRIT 41.8 % (36.0-47.0); HEMOGLOBIN 14.1 g/dL (12.0-15.5); MEAN CORPUSCULAR HEMOGLOBIN 31.4 pg (27.0-33.4); MEAN CORPUSCULAR HGB CONC 33.8 g/dL (32.0-36.0); MEAN CORPUSCULAR VOLUME 93 fl (80-97); PLATELET COUNT 222 10^3/uL (150-450); RED BLOOD COUNT 4.51 10^6/uL (3.72-5.28); RED CELL DISTRIBUTION WIDTH 13.7 % (11.5-14.0); WHITE BLOOD COUNT 22.7 10^3/uL (4.0-10.5)
[2017-09-20 06:09] LABS: ALBUMIN 2.9 g/dL (3.5-5.0); BLOOD UREA NITROGEN 36 mg/dL (7-20); CALCIUM 8.9 mg/dL (8.4-10.2); CHLORIDE 99 mmol/L (98-107); GLUCOSE 122 mg/dL (75-110); PHOSPHORUS 2.2 mg/dL (2.5-4.5); SODIUM 144.4 mmol/L (137-145)
[2017-09-20 06:15] LABS: ANION GAP 7 (5-19)
[2017-09-20 06:20] LABS: CARBON DIOXIDE 38 mmol/L (22-30); POTASSIUM 2.7 mmol/L (3.6-5.0)
[2017-09-20] MEDS ORDERED: POTASSIUM CHLORIDE 10 MEQ TABLET.SA PO ONE (07:00)
--- NOTE | 2017-09-20 08:43 | RADIOLOGY REPORT (SQ) ---
"EXAM DESCRIPTION: CHEST SINGLE VIEW COMPLETED DATE/TIME: 09/20/2017 7:57 am REASON FOR STUDY: pneumonia COMPARISON: Chest films 09/17/2017, 09/18/2017, 09/19/2017 EXAM PARAMETERS: NUMBER OF VIEWS: One view. TECHNIQUE: Single frontal radiographic view of the chest acquired. RADIATION DOSE: NA LIMITATIONS: None. FINDINGS: LUNGS AND PLEURA: Upper lobes are hyperinflated and hyperlucent from obstructive disease. In the left upper lobe, left lower lobe, and right lower lobe there is pulmonary vascular congestion with alveolar and interstitial edema. Superimposed pneumonia could not be excluded. These findings have progressed compared to 09/19/2017. Trace left pleural effusion. No pneumothorax MEDIASTINUM AND HILAR STRUCTURES: No masses. Contour normal. HEART AND VASCULAR STRUCTURES: Heart normal in size. Normal vasculature. BONES: No acute findings. HARDWARE: None in the chest. OTHER: No other significant finding. IMPRESSION: Increasing fluid overload or congestive failure superimposed on obstructive disease. TECHNICAL DOCUMENTATION: JOB ID: [id number] [employer] - innovate | mentor | invest- All Rights Reserved Reading location - IP/workstation name: [email or web address]"
[2017-09-20] MEDS: POTASSIUM CHLORIDE 20 MEQ/50 ML RTU IV SCH ×2 (08:48→11:34)
[2017-09-20] MEDS ORDERED: POTASSIUM CHLORIDE 10 MEQ TABLET.SA PO SCH (10:00)
[2017-09-20] MEDS ORDERED: FUROSEMIDE 20 MG TABLET PO SCH (10:00)
[2017-09-20] MEDS ORDERED: HYDROCORTISONE SOD SUCCINATE INJ/PF 100 MG/2 ML SDV IV ONE (11:17)
--- NOTE | 2017-09-20 12:51 | PDOC PROGRESS REPORT ---
Subjective Progress Note for:: 09/20/17 Subjective:: Patient seems to be doing better with gradual improvement. Patient still has shortness of breath. Pt is denying any chest arm or neck discomfort. Patient denying any PND, orthopnea. Patient denied any sustained palpitations, dizziness, syncope, near syncope. Patient denying any fever chills. Patient denying any other significant discomfort. Patient is maintaining sinus rhythm, frequent APCs noted. Review of systems: Rest review of systems negative. Medications: Medications have been reviewed. Reason For Visit: SEPSIS SECONDARY TO UTI Physical Exam Vital Signs: Temp Pulse Resp BP Pulse Ox 97.5 F 86 18 131/61 H 92 09/20/17 07:23 09/20/17 11:49 09/20/17 11:49 09/20/17 07:23 09/20/17 11:49 Intake & Output 09/19/17 09/20/17 09/21/17 06:59 06:59 06:59 Intake Total 2259 1156 Output Total 1205 2400 Balance 1054 -1244 Weight 55.3 kg 54.3 kg Exam: GENERAL: well-nourished and in no acute distress. Alert and oriented x3 HEAD: Atraumatic, normocephalic. EYES: Pupils equal round and reactive to light, extraocular movements intact, sclera anicteric, conjunctiva are normal. ENT: TMs normal, nares patent, oropharynx clear without exudates. Moist mucous membranes. No oral ulcerations or bleeding gums noted NECK: supple without lymphadenopathy. Trachea is central. No cervical or axillary lymphadenopathy noted. Carotids are 2+, JVD WNL LUNGS: Respiration seems nonlabored, no significant accessory muscle action noted. Bilateral basal coarse crackles and scattered wheezes rales or rhonchi noted. No significant dullness noted on percussion. CHEST: Palpation of the chest wall shows no significant chest wall tenderness. No other significant abnormalities noted. 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 ABDOMEN: Soft, no significant tenderness appreciated, normoactive bowel sounds. No guarding, no rebound. No rigidity noted . No masses appreciated. EXTREMITIES: Pedal pulses are 1-2+, no calf tenderness noted. No clubbing or cyanosis.trace pedal edema noted NEUROLOGICAL: Focused neurological exam showed no significant neurologic deficit. Normal speech, no focal weakness appreciated. PSYCH: Normal mood, normal affect. Judgment and insight within normal limits. SKIN: No significant ecchymosis, skin is noted to be warm. MUSCULOSKELETAL EXAM: No significant acute joint swelling noted. Results Laboratory Results: 09/20/17 05:07 09/20/17 05:07 09/19/17 09/20/17 09/20/17 06:02 05:07 05:07 WBC 22.7 H RBC 4.51 Hgb 14.1 Hct 41.8 MCV 93 MCH 31.4 MCHC 33.8 RDW 13.7 Plt Count 222 Sodium 144.4 Potassium 2.7 L* Chloride 99 Carbon Dioxide 38 H Anion Gap 7 BUN 36 H Creatinine 1.25 Est GFR ( Amer) 50 L Est GFR (Non-Af Amer) 41 L Glucose 122 H Calcium 8.9 Phosphorus 2.2 L Magnesium 2.4 H 2.1 Albumin 2.9 L 09/20/17 07:05 WBC RBC Hgb Hct MCV MCH MCHC RDW Plt Count Sodium Potassium Chloride Carbon Dioxide Anion Gap BUN Creatinine Est GFR ( Amer) Est GFR (Non-Af Amer) Glucose Calcium Phosphorus Magnesium Cancelled Albumin 09/17/17 09/17/17 17:57 23:45 Troponin I 1.080 0.829 EKG Comments: Telemetry shows sinus rhythm with frequent APCs. Impressions: Chest X-Ray 09/20/17 00:00 IMPRESSION: Increasing fluid overload or congestive failure superimposed on obstructive disease. Assessment & Plan - Diagnosis (1) Acute respiratory failure with hypoxia and hypercapnia Is this a current diagnosis for this admission?: Yes (2) COPD (chronic obstructive pulmonary disease) Is this a current diagnosis for this admission?: Yes (3) Elevated troponin Is this a current diagnosis for this admission?: Yes (4) Hypertension Qualifiers: Hypertension type: essential hypertension Qualified Code(s): I10 - Essential (primary) hypertension Is this a current diagnosis for this admission?: Yes (5) Hypokalemia Is this a current diagnosis for this admission?: Yes (6) Cardiac dysrhythmia Qualifiers: Premature depolarization type: atrial Is this a current diagnosis for this admission?: Yes (7) Multifocal atrial tachycardia Is this a current diagnosis for this admission?: Yes - Notes Notes: Acute respiratory failure: Related to COPD exacerbation and pneumonia most likely bilateral. Agree with intermittent noninvasive ventilation. Agree with oxygenation, bronchodilators, antibiotic and steroids therapy as needed. Continue with her oxygen supplementation. Atrial fibrillation with rapid ventricular response: Patient currently in sinus rhythm and maintaining sinus rhythm. Recommend correcting electrolytes. Do not feel patient needs chronic anticoagulation at this point as these could well be related to COPD exacerbation. Patient also being underweight and elderly has increased risk of bleed. However would recommend DVT prophylaxis. COPD with exacerbation: Continue above management. Elevated troponin I: [place] to be related to severe hypoxemia, transient hypotension etc. Patient did not have any chest pain. Had a long discussion with patient's daughter, it was felt that patient would not be a candidate for any ischemia evaluation given severe COPD which is probably end-stage. No intervention planned at this point unless patient has recurrent chest pain. Hypertension: Blood pressure goal is 140/90 although a more liberal goal is acceptable in this elderly patient. Cardiac dysrhythmia: Yesterday's rhythm strips definitely showed atrial fibrillation. At this point recommend Cardizem therapy, and intermittent digoxin as needed. 2D echo results reviewed. Showed LVEF to be relatively well -preserved. Hypokalemia: Recommend replacement to get potassium level above 4 mEq /L. CHF: BNP noted to be elevated. Most likely related to diastolic dysfunction and possibly some right heart failure. Recommend low-dose diuretics. - Time Time with patient: Greater than 35 minutes - CODE STATUS was discussed, patient remains full code. Surrogate decision-maker unchanged. Multiple medical problems were addressed. More than 50% of the time spent coordinating care, discussing management plans with involved caregivers. Management plans discussed with involved personnels. Medical decision making was of moderate to high complexity, patient's has multiple comorbidities. Medications reviewed and adjusted accordingly: Yes
[2017-09-20] MEDS: POTASSIUM CHLORIDE 20 MEQ/15 ML UDCUP PO SCH ×2 (16:02→22:25)
[2017-09-20] MEDS: DILTIAZEM HCL 180 MG CAPSULE.CR PO SCH (17:25)
[2017-09-20] MEDS: VANCOMYCIN HCL 500 MG in DEXTROSE 5%-WATER 100 ML IV SCH (19:23)
[2017-09-20 19:27] LABS: VANCOMYCIN,TROUGH 5.6 ug/mL (5.0-20.0)
--- NOTE | 2017-09-20 22:14 | PDOC PROGRESS REPORT ---
Subjective Progress Note for:: 09/20/17 Subjective:: Patient with persistent hypokalemia, receiving multiple p.o. replacements and IV potassium replacements. Patient placed on IV Lasix 20 mg twice daily for pulmonary edema. Remains on 5-6 L nasal cannula, continue to wean down as possible. Patient clinically has improved significantly. Sitting up in bed very conversational this morning. Reason For Visit: SEPSIS SECONDARY TO UTI Physical Exam Vital Signs: Temp Pulse Resp BP Pulse Ox 97.3 F 90 20 145/78 H 92 09/20/17 15:59 09/20/17 20:59 09/20/17 20:59 09/20/17 15:59 09/20/17 20:59 Intake & Output 09/19/17 09/20/17 09/21/17 06:59 06:59 06:59 Intake Total 2259 1156 1400 Output Total 1205 2400 2300 Balance 1054 -1244 -900 Weight 55.3 kg 54.3 kg General appearance: PRESENT: no acute distress, cooperative Head exam: PRESENT: atraumatic, normocephalic Eye exam: PRESENT: EOMI, PERRLA Ear exam: PRESENT: normal external ear exam. ABSENT: bleeding Mouth exam: PRESENT: moist, neck supple Neck exam: PRESENT: full ROM. ABSENT: JVD, tenderness Respiratory exam: ABSENT: rhonchi, PRESENT: Wheezing, crackles Cardiovascular exam: PRESENT: RRR, +S1, +S2 Pulses: PRESENT: normal radial pulses, normal dorsalis pedis pul GI/Abdominal exam: PRESENT: soft. ABSENT: distended, firm, rigid Extremities exam: ABSENT: calf tenderness, joint swelling Musculoskeletal exam: PRESENT: full ROM. ABSENT: deformity Neurological exam: PRESENT: alert, oriented to person, oriented to place, oriented to time, CN II-XII grossly intact Psychiatric exam: ABSENT: agitated, anxious Focused psych exam: ABSENT: delusional, paranoid Skin exam: ABSENT: abrasion, cyanosis Results Laboratory Results: 09/20/17 05:07 09/20/17 18:52 09/20/17 09/20/17 09/20/17 05:07 05:07 07:05 WBC 22.7 H RBC 4.51 Hgb 14.1 Hct 41.8 MCV 93 MCH 31.4 MCHC 33.8 RDW 13.7 Plt Count 222 Sodium 144.4 Potassium 2.7 L* Chloride 99 Carbon Dioxide 38 H Anion Gap 7 BUN 36 H Creatinine 1.25 Est GFR ( Amer) 50 L Est GFR (Non-Af Amer) 41 L Glucose 122 H Calcium 8.9 Phosphorus 2.2 L Magnesium 2.1 Cancelled Albumin 2.9 L 09/20/17 18:52 WBC RBC Hgb Hct MCV MCH MCHC RDW Plt Count Sodium Potassium Chloride Carbon Dioxide Anion Gap BUN Creatinine 1.16 Est GFR ( Amer) 54 L Est GFR (Non-Af Amer) 45 L Glucose Calcium Phosphorus Magnesium Albumin 09/17/17 09/17/17 17:57 23:45 Troponin I 1.080 0.829 Impressions: Chest X-Ray 09/20/17 00:00 IMPRESSION: Increasing fluid overload or congestive failure superimposed on obstructive disease. Assessment & Plan - Diagnosis (1) Septic shock Is this a current diagnosis for this admission?: Yes (2) Pneumonia Is this a current diagnosis for this admission?: Yes (3) KEITH (acute kidney injury) Is this a current diagnosis for this admission?: Yes (4) Acute respiratory failure with hypoxia and hypercapnia Is this a current diagnosis for this admission?: Yes (5) COPD (chronic obstructive pulmonary disease) Is this a current diagnosis for this admission?: Yes (6) Hypertension Qualifiers: Hypertension type: essential hypertension Qualified Code(s): I10 - Essential (primary) hypertension Is this a current diagnosis for this admission?: Yes (7) Atrial fibrillation Is this a current diagnosis for this admission?: Yes (8) Leukocytosis Is this a current diagnosis for this admission?: Yes (9) Elevated troponin Is this a current diagnosis for this admission?: Yes - Plan Summary Plan Summary: (1) Septic shock resolving, stable vital signs, weaned off of IVF, weaning stress dose steroids. (2) Atrial fibrillation with RVR Home p.o. dose of diltiazem (3) Pneumonia, suspect possible gram negative Blood cultures x2 taken, no growth in ED she received azithromycin/Rocephin. continue Vanc/Levaquin/Zosyn BP stable off of IVF at present. CXR shows a more distinct left sided PNA (4) Acute metabolic encephalopathy, secondary to PNA mentation has improved to baseline (5) KEITH (acute kidney injury) improving renal function. now drinking oral fluids. (6) Acute respiratory failure with hypoxia and hypercapnia scheduled Duonebs, weaning IV steroids continue supportive O2, wean as tolerated Giving IV Lasix and weaning O2 office tolerated. (7) COPD (chronic obstructive pulmonary disease) Duonebs, and IV steroids Some wheezing on exam today, improving overall (7) Hypertension stable BP, on home diltiazem (8) Leukocytosis secondary to PNA. monitor (9) Elevated troponin consulted cardiology. possibly secondary to sepsis or demand ischemia family denied any complaints of chest pain prior to coming to the hospital. decreased serial troponins cardiology following (10) Hypokalemia. Persistent giving IV and p.o. replacements
[2017-09-20] MEDS: LEVOFLOXACIN 250 MG/D5W RTU 250 MG/50 ML RTUPB IV SCH (22:24)
[2017-09-20] MEDS: FUROSEMIDE INJ/PF 20 MG/2 ML SDV IV SCH (22:25)
[2017-09-21] MEDS: IPRATROPIUM BROMIDE 0.02% NEB 0.5 MG/2.5 ML AMPUL NEB SCH ×6 (03:31→23:19)
[2017-09-21] MEDS: LEVALBUTEROL HCL NEB 1.25 MG/3 ML AMPUL NEB SCH ×6 (03:31→23:20)
[2017-09-21] MEDS: PIPERACILLIN SODIUM/TAZOBACTAM 3.375 GM in NORMAL SALINE 100 ML IV SCH ×3 (05:28→17:26)
[2017-09-21] MEDS: POTASSIUM CHLORIDE 20 MEQ/15 ML UDCUP PO SCH ×2 (05:30→13:11)
[2017-09-21 06:15] LABS: HEMATOCRIT 48.2 % (36.0-47.0); HEMOGLOBIN 15.9 g/dL (12.0-15.5); MEAN CORPUSCULAR VOLUME 94 fl (80-97); PLATELET COUNT 258 10^3/uL (150-450); RED BLOOD COUNT 5.13 10^6/uL (3.72-5.28); RED CELL DISTRIBUTION WIDTH 13.8 % (11.5-14.0); WHITE BLOOD COUNT 24.8 10^3/uL (4.0-10.5)
[2017-09-21 06:39] LABS: ALBUMIN 3.4 g/dL (3.5-5.0); BLOOD UREA NITROGEN 29 mg/dL (7-20); CHLORIDE 87 mmol/L (98-107); GLUCOSE 103 mg/dL (75-110); PHOSPHORUS 1.6 mg/dL (2.5-4.5); POTASSIUM 3.1 mmol/L (3.6-5.0)
[2017-09-21 06:51] LABS: CARBON DIOXIDE 54 mmol/L (22-30)
[2017-09-21 07:32] LABS: ANION GAP 4 (5-19)
[2017-09-21] MEDS ORDERED: POTASSI CL 20 MEQ/50 ML RIDER 20 MEQ/50 ML RTUPB IV ONE (08:00)
[2017-09-21] MEDS: FUROSEMIDE INJ/PF 20 MG/2 ML SDV IV SCH (10:24)
--- NOTE | 2017-09-21 12:10 | PDOC PROGRESS REPORT ---
Subjective Progress Note for:: 09/21/17 Subjective:: Patient seems to be doing better with gradual improvement. Pt is denying any chest arm or neck discomfort. Patient denying any PND, orthopnea. Patient denied any sustained palpitations, dizziness, syncope, near syncope. Patient denying any fever chills. Patient denying any other significant discomfort. Patient is maintaining sinus rhythm, frequent APCs noted. Review of systems: Rest review of systems negative. Medications: Medications have been reviewed. Reason For Visit: SEPSIS SECONDARY TO UTI Physical Exam Vital Signs: Temp Pulse Resp BP Pulse Ox 97.5 F 57 L 16 134/87 H 94 09/21/17 07:57 09/21/17 08:11 09/21/17 08:11 09/21/17 07:57 09/21/17 08:11 Intake & Output 09/20/17 09/21/17 09/22/17 06:59 06:59 06:59 Intake Total 1156 3420 Output Total 2400 3900 Balance -1244 -480 Weight 54.3 kg 52 kg Exam: GENERAL: well-nourished and in no acute distress. Alert and oriented x3 HEAD: Atraumatic, normocephalic. EYES: Pupils equal round and reactive to light, extraocular movements intact, sclera anicteric, conjunctiva are normal. ENT: TMs normal, nares patent, oropharynx clear without exudates. Moist mucous membranes. No oral ulcerations or bleeding gums noted NECK: supple without lymphadenopathy. Trachea is central. No cervical or axillary lymphadenopathy noted. Carotids are 2+, JVD WNL LUNGS: Respiration seems mildly labored with bilateral wheezing. No dullness noted. CHEST: Palpation of the chest wall shows no significant chest wall tenderness. No other significant abnormalities noted. 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 ABDOMEN: Soft, no significant tenderness appreciated, normoactive bowel sounds. No guarding, no rebound. No rigidity noted . No masses appreciated. EXTREMITIES: Pedal pulses are 1-2+, no calf tenderness noted. No clubbing or cyanosis.trace pedal edema noted NEUROLOGICAL: Focused neurological exam showed no significant neurologic deficit. Normal speech, no focal weakness appreciated. PSYCH: Normal mood, normal affect. Judgment and insight within normal limits. SKIN: No significant ecchymosis, skin is noted to be warm. MUSCULOSKELETAL EXAM: No significant acute joint swelling noted. Results Laboratory Results: 09/21/17 05:16 09/21/17 05:16 09/20/17 09/21/17 09/21/17 18:52 05:16 05:16 WBC 24.8 H RBC 5.13 Hgb 15.9 H Hct 48.2 H MCV 94 MCH 31.0 MCHC 33.0 RDW 13.8 Plt Count 258 Sodium 145.0 Potassium 3.1 L Chloride 87 L Carbon Dioxide 54 H* Anion Gap 4 L BUN 29 H Creatinine 1.16 1.18 Est GFR ( Amer) 54 L 53 L Est GFR (Non-Af Amer) 45 L 44 L Glucose 103 Calcium 9.0 Phosphorus 1.6 L Albumin 3.4 L 09/17/17 09/17/17 17:57 23:45 Troponin I 1.080 0.829 EKG Comments: Telemetry strips reviewed. Seems like patient had a short run of paroxysmal atrial tachycardia before converting to sinus rhythm. Impressions: Chest X-Ray 09/20/17 00:00 IMPRESSION: Increasing fluid overload or congestive failure superimposed on obstructive disease. Assessment & Plan - Diagnosis (1) Acute respiratory failure with hypoxia and hypercapnia Is this a current diagnosis for this admission?: Yes (2) COPD (chronic obstructive pulmonary disease) Is this a current diagnosis for this admission?: Yes (3) Elevated troponin Is this a current diagnosis for this admission?: Yes (4) Hypertension Qualifiers: Hypertension type: essential hypertension Qualified Code(s): I10 - Essential (primary) hypertension Is this a current diagnosis for this admission?: Yes (5) Hypokalemia Is this a current diagnosis for this admission?: Yes (6) Cardiac dysrhythmia Qualifiers: Premature depolarization type: atrial Is this a current diagnosis for this admission?: Yes (7) Multifocal atrial tachycardia Is this a current diagnosis for this admission?: Yes - Notes Notes: Patient noted to have metabolic alkalosis with elevated sodium bicarb level in the blood. Will start patient on Diamox 250 mg p.o. daily. Agree with noninvasive intermittent ventilation support with bilevel therapy. Patient also noted to have paroxysmal atrial tachycardia. Continue with Cardizem therapy. Patient also does have intermittent atrial fibrillation. Acute respiratory failure: Related to COPD exacerbation and pneumonia most likely bilateral. Agree with intermittent noninvasive ventilation. Agree with oxygenation, bronchodilators, antibiotic and steroids therapy as needed. Continue with her oxygen supplementation. Atrial fibrillation with rapid ventricular response: Patient currently in sinus rhythm and maintaining sinus rhythm. Recommend correcting electrolytes. Do not feel patient needs chronic anticoagulation at this point as these could well be related to COPD exacerbation. Patient also being underweight and elderly has increased risk of bleed. However would recommend DVT prophylaxis. COPD with exacerbation: Continue above management. Elevated troponin I: [place] to be related to severe hypoxemia, transient hypotension etc. Patient did not have any chest pain. Had a long discussion with patient's daughter, it was felt that patient would not be a candidate for any ischemia evaluation given severe COPD which is probably end-stage. No intervention planned at this point unless patient has recurrent chest pain. Hypertension: Blood pressure goal is 140/90 although a more liberal goal is acceptable in this elderly patient. Cardiac dysrhythmia: Yesterday's rhythm strips definitely showed atrial fibrillation. At this point recommend Cardizem therapy, and intermittent digoxin as needed. 2D echo results reviewed. Showed LVEF to be relatively well -preserved. Hypokalemia: Recommend replacement to get potassium level above 4 mEq /L. CHF: BNP noted to be elevated. Most likely related to diastolic dysfunction and possibly some right heart failure. Recommend low-dose diuretics. - Time Time with patient: Greater than 35 minutes - CODE STATUS was discussed, patient remains full code. Surrogate decision-maker unchanged. Multiple medical problems were addressed. More than 50% of the time spent coordinating care, discussing management plans with involved caregivers. Management plans discussed with involved personnels. Medical decision making was of moderate to high complexity, patient's has multiple comorbidities. Medications reviewed and adjusted accordingly: Yes
[2017-09-21] MEDS ORDERED: ACETAZOLAMIDE 250 MG TABLET PO ONE (12:30)
[2017-09-21] MEDS: VANCOMYCIN HCL 500 MG in DEXTROSE 5%-WATER 100 ML IV SCH (13:08)
[2017-09-21 16:11] LABS: ARTERIAL BLOOD BASE EXCESS 23.1 mmol/L; ARTERIAL BLOOD H2CO3 1.96 mmol/L (1.05-1.35); ARTERIAL BLOOD HCO3 51.4 mmol/L (20-26); ARTERIAL BLOOD O2 SATURATION 93.2 % (94-98); ARTERIAL BLOOD PCO2 65.1 mmHg (35-45); ARTERIAL BLOOD PH 7.52 (7.35-7.45); ARTERIAL BLOOD PO2 62.7 mmHg (80-100); ARTERIAL BLOOD TOTAL CO2 53.4 mmol/L (21-25)
[2017-09-21 16:12] LABS: ARTERIAL BLOOD FIO2 52%
[2017-09-21] MEDS: DILTIAZEM HCL 180 MG CAPSULE.CR PO SCH (17:26)
--- NOTE | 2017-09-21 21:08 | PDOC PROGRESS REPORT ---
Subjective Progress Note for:: 09/21/17 Subjective:: Call the patient's room this morning because she had elevated bicarb. Patient was likely retaining PCO2 given that she was allowed to sleep on high flow nasal cannula instead of her BiPAP support last night. Instructed nursing staff to make sure that she rests on BiPAP support with her current lung condition. Will remove Key today. Continue IV antibiotics. Continue steroid weaning. Continue supportive nebulized medicines. Patient with mild confusion on exam likely secondary to CO2 narcosis. Replacing on BiPAP now. We get an ABG. Reason For Visit: SEPSIS SECONDARY TO UTI Physical Exam Vital Signs: Temp Pulse Resp BP Pulse Ox 97.4 F 102 H 20 136/69 H 95 09/21/17 15:10 09/21/17 19:00 09/21/17 15:24 09/21/17 15:10 09/21/17 15:24 Intake & Output 09/20/17 09/21/17 09/22/17 06:59 06:59 06:59 Intake Total 1156 3420 568 Output Total 2400 3900 1900 Balance -1244 -480 -1332 Weight 54.3 kg 52 kg General appearance: PRESENT: Alert, oriented x2, mild confusion, wearing 6L high flow. Head exam: PRESENT: atraumatic, normocephalic Eye exam: PRESENT: EOMI, PERRLA Ear exam: PRESENT: normal external ear exam. ABSENT: bleeding Mouth exam: PRESENT: moist, neck supple Neck exam: PRESENT: full ROM. ABSENT: JVD, tenderness Respiratory exam: ABSENT: rhonchi, PRESENT: Wheezing, crackles Cardiovascular exam: PRESENT: RRR, +S1, +S2 Pulses: PRESENT: normal radial pulses, normal dorsalis pedis pul GI/Abdominal exam: PRESENT: soft. ABSENT: distended, firm, rigid Extremities exam: ABSENT: calf tenderness, joint swelling Musculoskeletal exam: PRESENT: full ROM. ABSENT: deformity Neurological exam: PRESENT: alert, oriented to person, oriented to place, oriented to time, CN II-XII grossly intact Psychiatric exam: ABSENT: agitated, anxious Focused psych exam: ABSENT: delusional, paranoid Skin exam: ABSENT: abrasion, cyanosis Results Laboratory Results: 09/21/17 05:16 09/21/17 05:16 09/21/17 09/21/17 09/21/17 05:16 05:16 15:40 WBC 24.8 H RBC 5.13 Hgb 15.9 H Hct 48.2 H MCV 94 MCH 31.0 MCHC 33.0 RDW 13.8 Plt Count 258 Carbonic Acid 1.96 H HCO3/H2CO3 Ratio 26:1 ABG pH 7.52 H ABG pCO2 65.1 H ABG pO2 62.7 L ABG HCO3 51.4 H ABG O2 Saturation 93.2 L ABG Base Excess 23.1 FiO2 52% Sodium 145.0 Potassium 3.1 L Chloride 87 L Carbon Dioxide 54 H* Anion Gap 4 L BUN 29 H Creatinine 1.18 Est GFR ( Amer) 53 L Est GFR (Non-Af Amer) 44 L Glucose 103 Calcium 9.0 Phosphorus 1.6 L Albumin 3.4 L 09/17/17 09/17/17 17:57 23:45 Troponin I 1.080 0.829 Impressions: Chest X-Ray 09/20/17 00:00 IMPRESSION: Increasing fluid overload or congestive failure superimposed on obstructive disease. Assessment & Plan - Inpatient Certification Based on my medical assessment, after consideration of the patient's comorbidities, presenting symptoms, or acuity I expect that the services needed warrant INPATIENT care.: Yes Medical Necessity: Need for IV Antibiotics, Risk of Complication if Not Cared For in Hospital - Plan Summary Plan Summary: (1) Septic shock resolving, stable vital signs, weaned off of IVF, weaning steroids (2) Atrial fibrillation with RVR Home p.o. dose of diltiazem (3) Pneumonia, suspect possible gram negative Blood cultures x2 taken, no growth in ED she received azithromycin/Rocephin. continue Vanc/Levaquin/Zosyn BP stable off of IVF at present. CXR shows a more distinct left sided PNA (4) Acute metabolic encephalopathy, secondary to PNA mentation has improved, but somewhat confused today Checking ABG now. (5) KEITH (acute kidney injury) improving renal function. now drinking oral fluids. (6) Acute respiratory failure with hypoxia and hypercapnia scheduled Duonebs, weaning IV steroids continue supportive O2, wean as tolerated Giving IV Lasix and weaning O2 office tolerated. (7) COPD (chronic obstructive pulmonary disease) Duonebs, and IV steroids Some wheezing on exam today, improving overall (7) Hypertension stable BP, on home diltiazem (8) Leukocytosis secondary to PNA. monitor (9) Elevated troponin consulted cardiology. possibly secondary to sepsis or demand ischemia family denied any complaints of chest pain prior to coming to the hospital. decreased serial troponins cardiology following (10) Hypokalemia. Persistent giving IV and p.o. replacements (11) Metabolic Alkylosis. cardiology following, and started diamox.
[2017-09-21] MEDS: DILTIAZEM HCL INJ 25 MG/5 ML VIAL IV PRN (21:26)
[2017-09-21 21:37] LABS: HEMATOCRIT 50.3 % (36.0-47.0); HEMOGLOBIN 16.5 g/dL (12.0-15.5); MEAN CORPUSCULAR HEMOGLOBIN 30.9 pg (27.0-33.4); MEAN CORPUSCULAR HGB CONC 32.7 g/dL (32.0-36.0); MEAN CORPUSCULAR VOLUME 94 fl (80-97); PLATELET COUNT 272 10^3/uL (150-450); RED BLOOD COUNT 5.33 10^6/uL (3.72-5.28); RED CELL DISTRIBUTION WIDTH 13.6 % (11.5-14.0); WHITE BLOOD COUNT 21.2 10^3/uL (4.0-10.5)
[2017-09-21] MEDS ORDERED: LISINOPRIL 10 MG TABLET PO SCH (22:00)
[2017-09-21] MEDS ORDERED: DILTIAZEM HCL INJ 25 MG/5 ML VIAL IV ONE (22:00)
[2017-09-21 22:01] LABS: BLOOD UREA NITROGEN 25 mg/dL (7-20); CALCIUM 9.1 mg/dL (8.4-10.2); CHLORIDE 84 mmol/L (98-107); GLUCOSE 123 mg/dL (75-110); PHOSPHORUS 2.1 mg/dL (2.5-4.5); POTASSIUM 3.1 mmol/L (3.6-5.0); SODIUM 139.5 mmol/L (137-145)
[2017-09-21 22:05] LABS: ABSOLUTE MONOCYTES # (MANUAL) 0.8 10^3/uL (0.1-1.4); ABSOLUTE NEUTROPHILS# (MANUAL) 17.4 10^3/uL (1.7-8.2); BAND NEUTROPHILS % (MANUAL) 2 % (3-5); BASOPHILS % (MANUAL) 0 % (0-2); LYMPHOCYTES % (MANUAL) 9 % (13-45); METAMYELOCYTES % (MANUAL) 1 % (0); MONOCYTES % (MANUAL) 4 % (3-13); SEGMENTED NEUTROPHILS % (MAN) 79 % (42-78); TOTAL CELLS COUNTED 100
[2017-09-21 22:06] LABS: ARTERIAL BLOOD BASE EXCESS 20.3 mmol/L; ARTERIAL BLOOD HCO3 46.3 mmol/L (20-26); ARTERIAL BLOOD O2 SATURATION 93.4 % (94-98); ARTERIAL BLOOD PH 7.56 (7.35-7.45); ARTERIAL BLOOD PO2 59.9 mmHg (80-100); ARTERIAL BLOOD TOTAL CO2 47.9 mmol/L (21-25)
--- NOTE | 2017-09-21 22:06 | EKG REPORT ---
SEVERITY:- ABNORMAL ECG - SINUS RHYTHM WITH PACS LEFT ANTERIOR FASCICULAR BLOCK OLD ANTERIOR PR : Confirmed by: Campbell Robbins MD 21-Sep-2017 22:05:58
[2017-09-21 22:07] LABS: ARTERIAL BLOOD FIO2 40%
[2017-09-21 22:07] LABS: OVALOCYTES SLIGHT; PLATELET COMMENT ADEQUATE; POIKILOCYTOSIS SLIGHT; TOXIC GRANULATION 1+
[2017-09-21 22:08] LABS: EOSINOPHILS % (MANUAL) 0 % (0-6)
[2017-09-21 22:09] LABS: ANION GAP 7 (5-19)
[2017-09-21 22:12] LABS: CARBON DIOXIDE 49 mmol/L (22-30)
[2017-09-21] MEDS ORDERED: NORMAL SALINE 1000 ML 250 ML IV ONE (22:37)
[2017-09-21] MEDS ORDERED: NORMAL SALINE 1000 ML 1,000 ML IV PRN (22:45)
[2017-09-21] MEDS ORDERED: PHOSPHORUS #1 250 MG TABLET PO ONE (23:45)
[2017-09-22] MEDS: LEVOFLOXACIN 250 MG/D5W RTU 250 MG/50 ML RTUPB IV SCH (02:45)
[2017-09-22] MEDS: PIPERACILLIN SODIUM/TAZOBACTAM 3.375 GM in NORMAL SALINE 100 ML IV SCH ×4 (02:46→17:23)
[2017-09-22] MEDS: POTASSIUM CHLORIDE 20 MEQ/15 ML UDCUP PO SCH ×3 (02:47→14:54)
[2017-09-22 04:34] LABS: CREATINE KINASE MB 0.93 ng/mL (<4.55); TROPONIN I 0.185 ng/mL
[2017-09-22] MEDS: IPRATROPIUM BROMIDE 0.02% NEB 0.5 MG/2.5 ML AMPUL NEB SCH ×6 (04:41→23:07)
[2017-09-22] MEDS: LEVALBUTEROL HCL NEB 1.25 MG/3 ML AMPUL NEB SCH ×6 (04:41→23:07)
[2017-09-22] MEDS: VANCOMYCIN HCL 500 MG in DEXTROSE 5%-WATER 100 ML IV SCH ×3 (05:57→23:01)
[2017-09-22 06:17] LABS: HEMATOCRIT 49.1 % (36.0-47.0); HEMOGLOBIN 15.9 g/dL (12.0-15.5); MEAN CORPUSCULAR HEMOGLOBIN 30.7 pg (27.0-33.4); MEAN CORPUSCULAR HGB CONC 32.5 g/dL (32.0-36.0); MEAN CORPUSCULAR VOLUME 95 fl (80-97); PLATELET COUNT 257 10^3/uL (150-450); RED BLOOD COUNT 5.19 10^6/uL (3.72-5.28); RED CELL DISTRIBUTION WIDTH 13.7 % (11.5-14.0); WHITE BLOOD COUNT 19.4 10^3/uL (4.0-10.5)
[2017-09-22 06:47] LABS: BLOOD UREA NITROGEN 26 mg/dL (7-20); CHLORIDE 89 mmol/L (98-107); CREATINE KINASE 41 U/L (30-135); GLUCOSE 114 mg/dL (75-110); PHOSPHORUS 2.9 mg/dL (2.5-4.5); POTASSIUM 3.2 mmol/L (3.6-5.0); SODIUM 140.5 mmol/L (137-145)
[2017-09-22 06:58] LABS: ANION GAP 7 (5-19)
[2017-09-22 06:59] LABS: CARBON DIOXIDE 45 mmol/L (22-30)
[2017-09-22 07:01] LABS: CREATINE KINASE MB 0.96 ng/mL (<4.55); TROPONIN I 0.158 ng/mL
[2017-09-22] MEDS ORDERED: ACETAZOLAMIDE 250 MG TABLET PO SCH (10:00)
[2017-09-22 12:53] LABS: CREATINE KINASE MB 0.89 ng/mL (<4.55)
[2017-09-22 12:59] LABS: TROPONIN I 0.121 ng/mL
--- NOTE | 2017-09-22 16:19 | PDOC PROGRESS REPORT ---
Subjective Progress Note for:: 09/22/17 Subjective:: Patient seems to be doing better this morning in the unit. She was transferred to the unit last evening because of worsening respiratory condition and some confusion. Patient was noted to have increased CO2 retention. Heart rate was also noted to be mildly elevated. Pt is denying any chest arm or neck discomfort. Patient denying any PND, orthopnea. Patient denied any sustained palpitations, dizziness, syncope, near syncope. Patient denying any fever chills. Patient denying any other significant discomfort. Patient is maintaining sinus rhythm, frequent APCs noted. Review of systems: Rest review of systems negative. Medications: Medications have been reviewed. Reason For Visit: SEPSIS Physical Exam Vital Signs: Temp Pulse Resp BP Pulse Ox 97.8 F 96 28 H 140/70 H 92 09/22/17 16:00 09/22/17 16:00 09/22/17 16:00 09/22/17 16:00 09/22/17 16:00 Intake & Output 09/21/17 09/22/17 09/23/17 06:59 06:59 06:59 Intake Total 3420 2135 Output Total 3900 2205 1025 Balance - Weight 52 kg 47.4 kg Exam: GENERAL: well-nourished and in no acute distress. Alert and oriented x2 HEAD: Atraumatic, normocephalic. EYES: Pupils equal round and reactive to light, extraocular movements intact, sclera anicteric, conjunctiva are normal. ENT: TMs normal, nares patent, oropharynx clear without exudates. Moist mucous membranes. No oral ulcerations or bleeding gums noted NECK: supple without lymphadenopathy. Trachea is central. No cervical or axillary lymphadenopathy noted. Carotids are 2+, JVD WNL LUNGS: Respiration seems nonlabored, no significant accessory muscle action noted. Bilateral scattered wheezes rales or rhonchi noted. No significant dullness noted on percussion. CHEST: Palpation of the chest wall shows no significant chest wall tenderness. No other significant abnormalities noted. 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 ABDOMEN: Soft, no significant tenderness appreciated, normoactive bowel sounds. No guarding, no rebound. No rigidity noted . No masses appreciated. EXTREMITIES: Pedal pulses are 1-2+, no calf tenderness noted. No clubbing or cyanosis.trace to 1+ pedal edema noted NEUROLOGICAL: Focused neurological exam showed no significant neurologic deficit. Normal speech, no focal weakness appreciated. PSYCH: Normal mood, normal affect. Judgment and insight not examined. SKIN: No significant ecchymosis, skin is noted to be warm. MUSCULOSKELETAL EXAM: No significant acute joint swelling noted. Results Laboratory Results: 09/22/17 06:10 09/22/17 06:10 09/21/17 09/21/17 09/21/17 15:40 21:20 21:20 WBC 21.2 H RBC 5.33 H Hgb 16.5 H Hct 50.3 H MCV 94 MCH 30.9 MCHC 32.7 RDW 13.6 Plt Count 272 Seg Neutrophils % Not Reportable Lymphocytes % Not Reportable Monocytes % Not Reportable Eosinophils % Not Reportable Basophils % Not Reportable Absolute Neutrophils Not Reportable Absolute Lymphocytes Not Reportable Absolute Monocytes Not Reportable Absolute Eosinophils Not Reportable Absolute Basophils Not Reportable Carbonic Acid 1.96 H HCO3/H2CO3 Ratio 26:1 ABG pH 7.52 H ABG pCO2 65.1 H ABG pO2 62.7 L ABG HCO3 51.4 H ABG O2 Saturation 93.2 L ABG Base Excess 23.1 FiO2 52% Sodium 139.5 Potassium 3.1 L Chloride 84 L Carbon Dioxide 49 H* Anion Gap 7 BUN 25 H Creatinine 1.29 H Est GFR ( Amer) 48 L Est GFR (Non-Af Amer) 39 L Glucose 123 H Calcium 9.1 Phosphorus 2.1 L Magnesium 1.8 Albumin 09/21/17 09/22/17 09/22/17 21:40 06:10 06:10 WBC 19.4 H RBC 5.19 Hgb 15.9 H Hct 49.1 H MCV 95 MCH 30.7 MCHC 32.5 RDW 13.7 Plt Count 257 Seg Neutrophils % Lymphocytes % Monocytes % Eosinophils % Basophils % Absolute Neutrophils Absolute Lymphocytes Absolute Monocytes Absolute Eosinophils Absolute Basophils Carbonic Acid 1.60 H HCO3/H2CO3 Ratio 28:1 ABG pH 7.56 H ABG pCO2 53.0 H ABG pO2 59.9 L ABG HCO3 46.3 H ABG O2 Saturation 93.4 L ABG Base Excess 20.3 FiO2 40% Sodium 140.5 Potassium 3.2 L Chloride 89 L Carbon Dioxide 45 H* Anion Gap 7 BUN 26 H Creatinine 1.23 Est GFR ( Amer) 50 L Est GFR (Non-Af Amer) 42 L Glucose 114 H Calcium 9.0 Phosphorus 2.9 Magnesium Albumin 3.0 L 09/17/17 09/17/17 09/22/17 17:57 23:45 00:28 Creatine Kinase CK-MB (CK-2) Troponin I 1.080 0.829 NT-Pro-B Natriuret Pep 7810 H 09/22/17 09/22/17 09/22/17 00:28 00:28 06:10 Creatine Kinase 49 41 CK-MB (CK-2) 0.93 Troponin I 0.185 NT-Pro-B Natriuret Pep 09/22/17 09/22/17 09/22/17 06:10 12:04 12:04 Creatine Kinase 38 CK-MB (CK-2) 0.96 0.89 Troponin I 0.158 0.121 NT-Pro-B Natriuret Pep EKG Comments: Telemetry shows predominantly sinus rhythm with frequent APCs. Possible short PAT runs. Impressions: Chest X-Ray 09/20/17 00:00 IMPRESSION: Increasing fluid overload or congestive failure superimposed on obstructive disease. Assessment & Plan - Diagnosis (1) Acute respiratory failure with hypoxia and hypercapnia Is this a current diagnosis for this admission?: Yes (2) COPD (chronic obstructive pulmonary disease) Is this a current diagnosis for this admission?: Yes (3) Elevated troponin Is this a current diagnosis for this admission?: Yes (4) Hypertension Qualifiers: Hypertension type: essential hypertension Qualified Code(s): I10 - Essential (primary) hypertension Is this a current diagnosis for this admission?: Yes (5) Hypokalemia Is this a current diagnosis for this admission?: Yes (6) Cardiac dysrhythmia Qualifiers: Premature depolarization type: atrial Is this a current diagnosis for this admission?: Yes (7) Multifocal atrial tachycardia Is this a current diagnosis for this admission?: Yes - Notes Notes: Patient now improved enough to be transferred back. Believe alkalosis was related to overdiuresis. Diamox however was stopped. Could be restarted if needed. Acute respiratory failure: Related to COPD exacerbation and pneumonia most likely bilateral. Agree with intermittent noninvasive ventilation. Agree with oxygenation, bronchodilators, antibiotic and steroids therapy as needed. Continue with her oxygen supplementation. Atrial fibrillation with rapid ventricular response: Patient currently in sinus rhythm and maintaining sinus rhythm. Recommend correcting electrolytes. Do not feel patient needs chronic anticoagulation at this point as these could well be related to COPD exacerbation. Patient also being underweight and elderly has increased risk of bleed. However would recommend DVT prophylaxis. COPD with exacerbation: Continue above management. Elevated troponin I: [place] to be related to severe hypoxemia, transient hypotension etc. Patient did not have any chest pain. Had a long discussion with patient's daughter, it was felt that patient would not be a candidate for any ischemia evaluation given severe COPD which is probably end-stage. No intervention planned at this point unless patient has recurrent chest pain. Hypertension: Blood pressure goal is 140/90 although a more liberal goal is acceptable in this elderly patient. Cardiac dysrhythmia: Previous review of rhythm strips definitely showed paroxysmal atrial flutter and atrial fibrillation. At this point recommend Cardizem therapy, and intermittent digoxin as needed. 2D echo results reviewed. Showed LVEF to be relatively well-preserved. Hypokalemia: Recommend replacement to get potassium level above 4 mEq /L. CHF: BNP noted to be elevated. Most likely related to diastolic dysfunction and possibly some right heart failure. May have been over diuresed. Currently diuretics on hold. Will continue to follow patient. Repeat an EKG in the morning to monitor rhythm. - Time Time with patient: 15-25 minutes - CODE STATUS was discussed, patient remains full code. Surrogate decision-maker unchanged. Multiple medical problems were addressed. More than 50% of the time spent coordinating care, discussing management plans with involved caregivers. Management plans discussed with involved personnels. Medical decision making was of moderate to high complexity , patient's has multiple comorbidities. Medications reviewed and adjusted accordingly: Yes
[2017-09-22] MEDS: DILTIAZEM HCL 180 MG CAPSULE.CR PO SCH (17:23)
--- NOTE | 2017-09-22 18:25 | PDOC PROGRESS REPORT ---
Subjective Progress Note for:: 09/22/17 Subjective:: Overnight was moved to the ICU due to elevated CO2 levels and somnolence. Received IVF and doing better remainder of the night. Upon interview this morning, was feeling better. Continued to use biPAP which she felt was helping. Denies fevers, chills, CP, abdominal pain, NV. Reason For Visit: SEPSIS Physical Exam Vital Signs: Temp Pulse Resp BP Pulse Ox 97.8 F 79 16 140/70 H 93 09/22/17 16:00 09/22/17 16:13 09/22/17 16:13 09/22/17 16:00 09/22/17 16:13 Intake & Output 09/21/17 09/22/17 09/23/17 06:59 06:59 06:59 Intake Total 3420 2135 Output Total 3900 2205 1025 Balance - Weight 52 kg 47.4 kg General appearance: PRESENT: no acute distress, thin, other - BiPAP on in ICU Mouth exam: PRESENT: moist Respiratory exam: PRESENT: rhonchi - Diffuse Cardiovascular exam: PRESENT: +S1, +S2 GI/Abdominal exam: PRESENT: soft. ABSENT: tenderness Neurological exam: PRESENT: alert, awake Psychiatric exam: PRESENT: appropriate affect Results Laboratory Results: 09/22/17 06:10 09/22/17 06:10 09/21/17 09/21/17 09/21/17 21:20 21:20 21:40 WBC 21.2 H RBC 5.33 H Hgb 16.5 H Hct 50.3 H MCV 94 MCH 30.9 MCHC 32.7 RDW 13.6 Plt Count 272 Seg Neutrophils % Not Reportable Lymphocytes % Not Reportable Monocytes % Not Reportable Eosinophils % Not Reportable Basophils % Not Reportable Absolute Neutrophils Not Reportable Absolute Lymphocytes Not Reportable Absolute Monocytes Not Reportable Absolute Eosinophils Not Reportable Absolute Basophils Not Reportable Carbonic Acid 1.60 H HCO3/H2CO3 Ratio 28:1 ABG pH 7.56 H ABG pCO2 53.0 H ABG pO2 59.9 L ABG HCO3 46.3 H ABG O2 Saturation 93.4 L ABG Base Excess 20.3 FiO2 40% Sodium 139.5 Potassium 3.1 L Chloride 84 L Carbon Dioxide 49 H* Anion Gap 7 BUN 25 H Creatinine 1.29 H Est GFR ( Amer) 48 L Est GFR (Non-Af Amer) 39 L Glucose 123 H Calcium 9.1 Phosphorus 2.1 L Magnesium 1.8 Albumin 09/22/17 09/22/17 06:10 06:10 WBC 19.4 H RBC 5.19 Hgb 15.9 H Hct 49.1 H MCV 95 MCH 30.7 MCHC 32.5 RDW 13.7 Plt Count 257 Seg Neutrophils % Lymphocytes % Monocytes % Eosinophils % Basophils % Absolute Neutrophils Absolute Lymphocytes Absolute Monocytes Absolute Eosinophils Absolute Basophils Carbonic Acid HCO3/H2CO3 Ratio ABG pH ABG pCO2 ABG pO2 ABG HCO3 ABG O2 Saturation ABG Base Excess FiO2 Sodium 140.5 Potassium 3.2 L Chloride 89 L Carbon Dioxide 45 H* Anion Gap 7 BUN 26 H Creatinine 1.23 Est GFR ( Amer) 50 L Est GFR (Non-Af Amer) 42 L Glucose 114 H Calcium 9.0 Phosphorus 2.9 Magnesium Albumin 3.0 L 09/17/17 09/17/17 09/22/17 17:57 23:45 00:28 Creatine Kinase CK-MB (CK-2) Troponin I 1.080 0.829 NT-Pro-B Natriuret Pep 7810 H 09/22/17 09/22/17 09/22/17 00:28 00:28 06:10 Creatine Kinase 49 41 CK-MB (CK-2) 0.93 Troponin I 0.185 NT-Pro-B Natriuret Pep 09/22/17 09/22/17 09/22/17 06:10 12:04 12:04 Creatine Kinase 38 CK-MB (CK-2) 0.96 0.89 Troponin I 0.158 0.121 NT-Pro-B Natriuret Pep Impressions: Chest X-Ray 09/20/17 00:00 IMPRESSION: Increasing fluid overload or congestive failure superimposed on obstructive disease. Assessment & Plan - Diagnosis (1) Acute respiratory failure with hypoxia and hypercapnia Is this a current diagnosis for this admission?: Yes Plan: Multifactorial - Treating for PNA; continue Vanc/Levaquin/Zosyn - ABG yesterday showed mild hypercarbia. Improved with BiPAP - Continue Scheduled Duonebs, weaning IV steroids, Supportive O2 (wean as tolerated) - Lasix d/c-ed due to overdiuresis - Continue BiPAP at night (2) KEITH (acute kidney injury) Is this a current diagnosis for this admission?: Yes Plan: -Improved, likely pre-renal - Continue PO intake (3) Atrial fibrillation Is this a current diagnosis for this admission?: Yes Plan: Rate controlled on Home PO Dilt, continue (4) COPD (chronic obstructive pulmonary disease) Is this a current diagnosis for this admission?: Yes Plan: Per above. (5) Pneumonia Is this a current diagnosis for this admission?: Yes - Time Time Spent with patient: 15-24 minutes
[2017-09-22] MEDS: POTASSIUM CHLORIDE 10 MEQ TABLET.SA PO SCH (21:53)
[2017-09-22] MEDS ORDERED: LEVOFLOXACIN 250 MG/D5W RTU 250 MG/50 ML RTUPB IV ONE (22:37)
[2017-09-23] MEDS: LEVOFLOXACIN 250 MG/D5W RTU 250 MG/50 ML RTUPB IV SCH (00:33)
[2017-09-23] MEDS: PIPERACILLIN SODIUM/TAZOBACTAM 3.375 GM in NORMAL SALINE 100 ML IV SCH ×2 (01:14→05:29)
[2017-09-23] MEDS: LEVALBUTEROL HCL NEB 1.25 MG/3 ML AMPUL NEB SCH ×4 (04:15→16:03)
[2017-09-23] MEDS: IPRATROPIUM BROMIDE 0.02% NEB 0.5 MG/2.5 ML AMPUL NEB SCH ×4 (04:15→16:03)
[2017-09-23 05:29] LABS: HEMATOCRIT 45.5 % (36.0-47.0); MEAN CORPUSCULAR HEMOGLOBIN 30.9 pg (27.0-33.4); MEAN CORPUSCULAR VOLUME 94 fl (80-97); PLATELET COUNT 252 10^3/uL (150-450); RED BLOOD COUNT 4.87 10^6/uL (3.72-5.28); RED CELL DISTRIBUTION WIDTH 13.9 % (11.5-14.0); WHITE BLOOD COUNT 18.5 10^3/uL (4.0-10.5)
[2017-09-23 05:56] LABS: ANION GAP 8 (5-19); BLOOD UREA NITROGEN 27 mg/dL (7-20); CARBON DIOXIDE 36 mmol/L (22-30); CHLORIDE 96 mmol/L (98-107); GLUCOSE 93 mg/dL (75-110); POTASSIUM 3.5 mmol/L (3.6-5.0); SODIUM 140.2 mmol/L (137-145)
[2017-09-23 06:09] LABS: ABSOLUTE LYMPHOCYTES# (MANUAL) 3.9 10^3/uL (0.5-4.7); ABSOLUTE MONOCYTES # (MANUAL) 1.5 10^3/uL (0.1-1.4); BAND NEUTROPHILS % (MANUAL) 6 % (3-5); BASOPHILS % (MANUAL) 0 % (0-2); EOSINOPHILS % (MANUAL) 1 % (0-6); LYMPHOCYTES % (MANUAL) 11 % (13-45); MONOCYTES % (MANUAL) 8 % (3-13); SEGMENTED NEUTROPHILS % (MAN) 64 % (42-78); TOTAL CELLS COUNTED 100
[2017-09-23 06:11] LABS: PLATELET COMMENT ADEQUATE
[2017-09-23 06:13] LABS: RBC MORPHOLOGY COMMENT NORMO-CYTIC/CHROMIC; TOXIC GRANULATION 1+
--- NOTE | 2017-09-23 09:43 | EKG REPORT ---
SEVERITY:- ABNORMAL ECG - SINUS RHYTHM WITH APCs PROBABLE LEFT ATRIAL ABNORMALITY PROBABLE INFERIOR INFARCT, OLD BORDERLINE R WAVE PROGRESSION, ANTERIOR LEADS : Confirmed by: Gina Moreno 23-Sep-2017 09:42:24
[2017-09-23] MEDS: POTASSIUM CHLORIDE 10 MEQ TABLET.SA PO SCH (11:08)
[2017-09-23] MEDS: VANCOMYCIN HCL 500 MG in DEXTROSE 5%-WATER 100 ML IV SCH (11:09)
[2017-09-23] MEDS ORDERED: CEFTRIAXONE 1 GM/D5W RTU 1 GM/50 ML RTUPB IV ONE (11:11)
[2017-09-23] MEDS ORDERED: METHYLPREDNISOLONE INJ 40 MG/1 ML SDV IV ONE (11:30)
[2017-09-23] MEDS ORDERED: MULTIVIT-STRESS FORMULA/ZINC TABLET PO ONE (12:00)
[2017-09-23] MEDS: DEXTROSE 5%-1/2 NORMAL SALINE 1,000 ML IV PRN (12:25)
[2017-09-23] MEDS ORDERED: CEFTRIAXONE SODIUM 1,000 MG in NORMAL SALINE 100 ML IV ONE (12:30)
[2017-09-23] MEDS ORDERED: FUROSEMIDE INJ/PF 20 MG/2 ML SDV IV SCH (18:00)
[2017-09-23] MEDS: DILTIAZEM HCL 180 MG CAPSULE.CR PO SCH (18:26)
--- NOTE | 2017-09-23 18:55 | PDOC PROGRESS REPORT ---
Subjective Progress Note for:: 09/23/17 Subjective:: Patient relates that she feels better. Accordingly she quit smoking the moment she came to the hospital. Review of system All organ systems evaluated and negative except as in subjective All significant laboratories and diagnostics have been reviewed Reason For Visit: SEPSIS Physical Exam Vital Signs: Temp Pulse Resp BP Pulse Ox 98.7 F 91 16 117/63 98 09/23/17 07:18 09/23/17 07:18 09/23/17 07:18 09/23/17 07:18 09/23/17 07:18 Intake & Output 09/22/17 09/23/17 09/24/17 06:59 06:59 06:59 Intake Total 2135 1114 Output Total 2205 1775 Balance -70 -661 Weight 47.4 kg 49.3 kg General appearance: PRESENT: mild distress, thin Head exam: PRESENT: atraumatic, normocephalic Eye exam: PRESENT: conjunctiva pink, EOMI, PERRLA Mouth exam: PRESENT: moist Neck exam: PRESENT: full ROM. ABSENT: JVD, lymphadenopathy, tenderness Respiratory exam: PRESENT: crackles, decreased breath sounds Cardiovascular exam: PRESENT: irregular rhythm. ABSENT: diastolic murmur, RRR, systolic murmur GI/Abdominal exam: PRESENT: normal bowel sounds, soft. ABSENT: tenderness Neurological exam: PRESENT: alert, oriented to person, oriented to place, oriented to time, oriented to situation, CN II-XII grossly intact Psychiatric exam: PRESENT: appropriate affect, normal mood Skin exam: PRESENT: intact, normal color Results Laboratory Results: 09/23/17 04:00 09/23/17 04:00 09/23/17 09/23/17 04:00 04:00 WBC 18.5 H RBC 4.87 Hgb 15.0 Hct 45.5 MCV 94 MCH 30.9 MCHC 33.0 RDW 13.9 Plt Count 252 Seg Neutrophils % Not Reportable Lymphocytes % Not Reportable Monocytes % Not Reportable Eosinophils % Not Reportable Basophils % Not Reportable Absolute Neutrophils Not Reportable Absolute Lymphocytes Not Reportable Absolute Monocytes Not Reportable Absolute Eosinophils Not Reportable Absolute Basophils Not Reportable Sodium 140.2 Potassium 3.5 L Chloride 96 L Carbon Dioxide 36 H Anion Gap 8 BUN 27 H Creatinine 1.13 Est GFR ( Amer) 56 L Est GFR (Non-Af Amer) 46 L Glucose 93 Calcium 9.0 09/17/17 09/17/17 09/22/17 17:57 23:45 00:28 Creatine Kinase CK-MB (CK-2) Troponin I 1.080 0.829 NT-Pro-B Natriuret Pep 7810 H 09/22/17 09/22/17 09/22/17 00:28 00:28 06:10 Creatine Kinase 49 41 CK-MB (CK-2) 0.93 Troponin I 0.185 NT-Pro-B Natriuret Pep 09/22/17 09/22/17 09/22/17 06:10 12:04 12:04 Creatine Kinase 38 CK-MB (CK-2) 0.96 0.89 Troponin I 0.158 0.121 NT-Pro-B Natriuret Pep Impressions: Chest X-Ray 09/20/17 00:00 IMPRESSION: Increasing fluid overload or congestive failure superimposed on obstructive disease. Assessment & Plan - Diagnosis (1) Acute respiratory failure with hypoxia and hypercapnia Is this a current diagnosis for this admission?: Yes Plan: Continue oxygen supplementation and will wean off as tolerated. Order echocardiogram to eval for pulmonary hypertension. (2) Atrial fibrillation Is this a current diagnosis for this admission?: Yes Plan: Stable (3) COPD (chronic obstructive pulmonary disease) Is this a current diagnosis for this admission?: Yes Plan: Placed on IV steroids, duo nebs, Mucinex (4) Elevated troponin Is this a current diagnosis for this admission?: Yes Plan: Likely due to myocardial demand ischemia. (5) Pneumonia Is this a current diagnosis for this admission?: Yes Plan: Continue Levaquin IV (6) Septic shock Is this a current diagnosis for this admission?: Yes Plan: Resolved (7) Severe protein-calorie malnutrition Is this a current diagnosis for this admission?: Yes Plan: Consult dietitian - Time Time Spent with patient: 15-24 minutes Medications reviewed and adjusted accordingly: Yes Anticipated discharge: Acute Rehab Within: within 24 hours - Inpatient Certification Based on my medical assessment, after consideration of the patient's comorbidities, presenting symptoms, or acuity I expect that the services needed warrant INPATIENT care.: Yes I certify that my determination is in accordance with my understanding of Medicare's requirements for reasonable and necessary INPATIENT services [42 CFR 412.3e].: Yes Medical Necessity: Need Close Monitoring Due to Risk of Patient Decompensation, Need for Nebulizer Therapy and Monitoring of Response, Need for IV Antibiotics
[2017-09-23] MEDS ORDERED: POTASSIUM CHLORIDE 10 MEQ TABLET.SA PO ONE (19:30)
--- NOTE | 2017-09-23 19:41 | PDOC PROGRESS REPORT ---
Subjective Progress Note for:: 09/23/17 Subjective:: Patient seems to be doing better. She was transferred to the unit day before yesterday because of worsening respiratory condition and some confusion. Patient was noted to have increased CO2 retention. Heart rate was also noted to be mildly elevated. Pt is denying any chest arm or neck discomfort. Patient denying any PND, orthopnea. Patient denied any sustained palpitations, dizziness, syncope, near syncope. Patient denying any fever chills. Patient denying any other significant discomfort. Patient subsequently transferred back to the floor yesterday and since then patient has shown progressive improvement. Patient is maintaining sinus rhythm, frequent APCs noted. Review of systems: Rest review of systems negative. Medications: Medications have been reviewed. Reason For Visit: SEPSIS Physical Exam Vital Signs: Temp Pulse Resp BP Pulse Ox 97.4 F 103 H 20 143/64 H 94 09/23/17 11:29 09/23/17 16:03 09/23/17 16:03 09/23/17 11:29 09/23/17 16:03 Intake & Output 09/22/17 09/23/17 09/24/17 06:59 06:59 06:59 Intake Total 2135 1114 778 Output Total 2205 1775 600 Balance -70 -661 178 Weight 47.4 kg 49.3 kg Exam: GENERAL: well-nourished and in no acute distress. Alert and oriented x3 HEAD: Atraumatic, normocephalic. EYES: Pupils equal round and reactive to light, extraocular movements intact, sclera anicteric, conjunctiva are normal. ENT: TMs normal, nares patent, oropharynx clear without exudates. Moist mucous membranes. No oral ulcerations or bleeding gums noted NECK: supple without lymphadenopathy. Trachea is central. No cervical or axillary lymphadenopathy noted. Carotids are 2+, JVD WNL LUNGS: Respiration seems nonlabored, no significant accessory muscle action noted. Mild bilateral scattered wheezes rales or rhonchi noted. No significant dullness noted on percussion. CHEST: Palpation of the chest wall shows no significant chest wall tenderness. No other significant abnormalities noted. 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 ABDOMEN: Soft, no significant tenderness appreciated, normoactive bowel sounds. No guarding, no rebound. No rigidity noted . No masses appreciated. EXTREMITIES: Pedal pulses are 1-2+, no calf tenderness noted. No clubbing or cyanosis.trace to 1+ pedal edema noted NEUROLOGICAL: Focused neurological exam showed no significant neurologic deficit. Normal speech, no focal weakness appreciated. PSYCH: Normal mood, normal affect. Judgment and insight within normal limits. SKIN: No significant ecchymosis, skin is noted to be warm. MUSCULOSKELETAL EXAM: No significant acute joint swelling noted. Results Laboratory Results: 09/23/17 04:00 09/23/17 04:00 09/23/17 09/23/17 04:00 04:00 WBC 18.5 H RBC 4.87 Hgb 15.0 Hct 45.5 MCV 94 MCH 30.9 MCHC 33.0 RDW 13.9 Plt Count 252 Seg Neutrophils % Not Reportable Lymphocytes % Not Reportable Monocytes % Not Reportable Eosinophils % Not Reportable Basophils % Not Reportable Absolute Neutrophils Not Reportable Absolute Lymphocytes Not Reportable Absolute Monocytes Not Reportable Absolute Eosinophils Not Reportable Absolute Basophils Not Reportable Sodium 140.2 Potassium 3.5 L Chloride 96 L Carbon Dioxide 36 H Anion Gap 8 BUN 27 H Creatinine 1.13 Est GFR ( Amer) 56 L Est GFR (Non-Af Amer) 46 L Glucose 93 Calcium 9.0 09/17/17 09/17/17 09/22/17 17:57 23:45 00:28 Creatine Kinase CK-MB (CK-2) Troponin I 1.080 0.829 NT-Pro-B Natriuret Pep 7810 H 09/22/17 09/22/17 09/22/17 00:28 00:28 06:10 Creatine Kinase 49 41 CK-MB (CK-2) 0.93 Troponin I 0.185 NT-Pro-B Natriuret Pep 09/22/17 09/22/17 09/22/17 06:10 12:04 12:04 Creatine Kinase 38 CK-MB (CK-2) 0.96 0.89 Troponin I 0.158 0.121 NT-Pro-B Natriuret Pep EKG Comments: Telemetry shows sinus rhythm with frequent APCs but no sustained tachycardia or bradycardia noted. Impressions: Chest X-Ray 09/20/17 00:00 IMPRESSION: Increasing fluid overload or congestive failure superimposed on obstructive disease. Assessment & Plan - Diagnosis (1) Acute respiratory failure with hypoxia and hypercapnia Is this a current diagnosis for this admission?: Yes (2) COPD (chronic obstructive pulmonary disease) Is this a current diagnosis for this admission?: Yes (3) Elevated troponin Is this a current diagnosis for this admission?: Yes (4) Hypertension Qualifiers: Hypertension type: essential hypertension Qualified Code(s): I10 - Essential (primary) hypertension Is this a current diagnosis for this admission?: Yes (5) Hypokalemia Is this a current diagnosis for this admission?: Yes (6) Cardiac dysrhythmia Qualifiers: Premature depolarization type: atrial Is this a current diagnosis for this admission?: Yes (7) Multifocal atrial tachycardia Is this a current diagnosis for this admission?: Yes - Notes Notes: Patient generally much improved. Will follow again in the morning. No medication changes recommended. Twelve-lead EKG from this morning reviewed showed no acute ST-T wave changes. Frequent APCs were however noted. Atrial fibrillation with rapid ventricular response: Patient currently in sinus rhythm and maintaining sinus rhythm. Recommend correcting electrolytes. Do not feel patient needs chronic anticoagulation at this point as these could well be related to COPD exacerbation. Patient also being underweight and elderly has increased risk of bleed. However would recommend DVT prophylaxis. COPD with exacerbation: Continue above management. Elevated troponin I: [place] to be related to severe hypoxemia, transient hypotension etc. Patient did not have any chest pain. Had a long discussion with patient's daughter, it was felt that patient would not be a candidate for any ischemia evaluation given severe COPD which is probably end-stage. No intervention planned at this point unless patient has recurrent chest pain. Hypertension: Blood pressure goal is 140/90 although a more liberal goal is acceptable in this elderly patient. Cardiac dysrhythmia: Previous review of rhythm strips definitely showed paroxysmal atrial flutter and atrial fibrillation. At this point recommend Cardizem therapy, and intermittent digoxin as needed. 2D echo results reviewed. Showed LVEF to be relatively well-preserved. Hypokalemia: Recommend replacement to get potassium level above 4 mEq /L. CHF: BNP noted to be elevated. Most likely related to diastolic dysfunction and possibly some right heart failure. May have been over diuresed. Currently diuretics on hold. - Time Time with patient: 15-25 minutes - CODE STATUS was discussed, patient remains full code. Surrogate decision-maker unchanged. Multiple medical problems were addressed. More than 50% of the time spent coordinating care, discussing management plans with involved caregivers. Management plans discussed with involved personnels. Medical decision making was of moderate to high complexity , patient's has multiple comorbidities. Medications reviewed and adjusted accordingly: Yes
[2017-09-23] MEDS: IPRATROPIUM/ALBUTEROL 0.5-2.5 MG/3 ML AMPUL NEB SCH (19:42)
[2017-09-23] MEDS: DILTIAZEM HCL INJ 25 MG/5 ML VIAL IV PRN (20:07)
[2017-09-23] MEDS: METHYLPREDNISOLONE INJ 40 MG/1 ML SDV IV SCH (21:14)
[2017-09-24 04:59] LABS: HEMATOCRIT 47.1 % (36.0-47.0); HEMOGLOBIN 15.8 g/dL (12.0-15.5); MEAN CORPUSCULAR HEMOGLOBIN 31.1 pg (27.0-33.4); MEAN CORPUSCULAR HGB CONC 33.5 g/dL (32.0-36.0); MEAN CORPUSCULAR VOLUME 93 fl (80-97); PLATELET COUNT 253 10^3/uL (150-450); RED BLOOD COUNT 5.07 10^6/uL (3.72-5.28); RED CELL DISTRIBUTION WIDTH 13.6 % (11.5-14.0)
[2017-09-24 05:11] LABS: ALANINE AMINOTRANSFERASE 39 U/L (9-52); ALBUMIN 3.1 g/dL (3.5-5.0); ALKALINE PHOSPHATASE 62 U/L (38-126); ANION GAP 6 (5-19); ASPARTATE AMINO TRANSFERASE 21 U/L (14-36); BILIRUBIN,DIRECT 0.2 mg/dL (0.0-0.4); BILIRUBIN,TOTAL 0.2 mg/dL (0.2-1.3); BLOOD UREA NITROGEN 32 mg/dL (7-20); CALCIUM 9.2 mg/dL (8.4-10.2); CARBON DIOXIDE 34 mmol/L (22-30); CHLORIDE 99 mmol/L (98-107); GLUCOSE 173 mg/dL (75-110); POTASSIUM 3.7 mmol/L (3.6-5.0); TOTAL PROTEIN 5.4 g/dL (6.3-8.2)
[2017-09-24] MEDS ORDERED: DILTIAZEM HCL 30 MG TABLET ONE (05:28)
[2017-09-24 05:29] LABS: ABSOLUTE LYMPHOCYTES# (MANUAL) 0.8 10^3/uL (0.5-4.7); ABSOLUTE MONOCYTES # (MANUAL) 0.3 10^3/uL (0.1-1.4); BAND NEUTROPHILS % (MANUAL) 1 % (3-5); BASOPHILS % (MANUAL) 0 % (0-2); EOSINOPHILS % (MANUAL) 0 % (0-6); LYMPHOCYTES % (MANUAL) 6 % (13-45); MONOCYTES % (MANUAL) 2 % (3-13); SEGMENTED NEUTROPHILS % (MAN) 91 % (42-78); TOTAL CELLS COUNTED 100
[2017-09-24 05:30] LABS: RBC MORPHOLOGY COMMENT NORMO-CYTIC/CHROMIC
[2017-09-24] MEDS ORDERED: DILTIAZEM HCL 30 MG TABLET PO ONE (05:30)
[2017-09-24 05:31] LABS: PLATELET COMMENT ADEQUATE
[2017-09-24] MEDS: IPRATROPIUM/ALBUTEROL 0.5-2.5 MG/3 ML AMPUL NEB SCH ×3 (07:45→20:45)
[2017-09-24] MEDS: DEXTROSE 5%-1/2 NORMAL SALINE 1,000 ML IV PRN ×2 (08:40→21:26)
[2017-09-24] MEDS: MULTIVIT-STRESS FORMULA/ZINC TABLET PO SCH (09:44)
[2017-09-24] MEDS: FUROSEMIDE INJ/PF 20 MG/2 ML SDV IV SCH (09:44)
[2017-09-24] MEDS: METHYLPREDNISOLONE INJ 40 MG/1 ML SDV IV SCH ×2 (09:44→21:28)
--- NOTE | 2017-09-24 10:34 | PDOC PROGRESS REPORT ---
Subjective Progress Note for:: 09/24/17 Subjective:: Patient seems to be doing better. However on cardiac monitoring she was noted to have an episode of nonsustained wide-complex tachycardia most likely V. tach. Patient however was asymptomatic. Patient apparently got some beta- eulalio. Patient is maintaining sinus rhythm, frequent APCs noted. Review of systems: Rest review of systems negative. Medications: Medications have been reviewed. Reason For Visit: SEPSIS Physical Exam Vital Signs: Temp Pulse Resp BP Pulse Ox 97.8 F 84 24 H 149/84 H 96 09/24/17 08:00 09/24/17 08:00 09/24/17 08:00 09/24/17 08:00 09/24/17 08:00 Intake & Output 09/23/17 09/24/17 09/25/17 06:59 06:59 06:59 Intake Total 1114 2169 Output Total 1775 600 Balance -661 1569 Weight 49.3 kg 48.1 kg Exam: GENERAL: well-nourished and in no acute distress. Alert and oriented x3 HEAD: Atraumatic, normocephalic. EYES: Pupils equal round and reactive to light, extraocular movements intact, sclera anicteric, conjunctiva are normal. ENT: TMs normal, nares patent, oropharynx clear without exudates. Moist mucous membranes. No oral ulcerations or bleeding gums noted NECK: supple without lymphadenopathy. Trachea is central. No cervical or axillary lymphadenopathy noted. Carotids are 2+, JVD WNL LUNGS: Respiration seems nonlabored, no significant accessory muscle action noted. Few a scattered bilateral wheezes rales or rhonchi noted. No significant dullness noted on percussion. CHEST: Palpation of the chest wall shows no significant chest wall tenderness. No other significant abnormalities noted. 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 ABDOMEN: Soft, no significant tenderness appreciated, normoactive bowel sounds. No guarding, no rebound. No rigidity noted . No masses appreciated. EXTREMITIES: Pedal pulses are 1-2+, no calf tenderness noted. No clubbing or cyanosis.trace pedal edema noted NEUROLOGICAL: Focused neurological exam showed no significant neurologic deficit. Normal speech, no focal weakness appreciated. PSYCH: Normal mood, normal affect. Judgment and insight within normal limits. SKIN: No significant ecchymosis, skin is noted to be warm. MUSCULOSKELETAL EXAM: No significant acute joint swelling noted. Results Laboratory Results: 09/24/17 04:17 09/24/17 04:17 09/24/17 09/24/17 04:17 04:17 WBC 13.0 H RBC 5.07 Hgb 15.8 H Hct 47.1 H MCV 93 MCH 31.1 MCHC 33.5 RDW 13.6 Plt Count 253 Seg Neutrophils % Not Reportable Lymphocytes % Not Reportable Monocytes % Not Reportable Eosinophils % Not Reportable Basophils % Not Reportable Absolute Neutrophils Not Reportable Absolute Lymphocytes Not Reportable Absolute Monocytes Not Reportable Absolute Eosinophils Not Reportable Absolute Basophils Not Reportable Sodium 139.0 Potassium 3.7 Chloride 99 Carbon Dioxide 34 H Anion Gap 6 BUN 32 H Creatinine 0.95 Est GFR ( Amer) > 60 Est GFR (Non-Af Amer) 56 L Glucose 173 H Calcium 9.2 Magnesium 1.9 Total Bilirubin 0.2 AST 21 ALT 39 Alkaline Phosphatase 62 Total Protein 5.4 L Albumin 3.1 L 09/17/17 09/17/17 09/22/17 17:57 23:45 00:28 Creatine Kinase CK-MB (CK-2) Troponin I 1.080 0.829 NT-Pro-B Natriuret Pep 7810 H 09/22/17 09/22/17 09/22/17 00:28 00:28 06:10 Creatine Kinase 49 41 CK-MB (CK-2) 0.93 Troponin I 0.185 NT-Pro-B Natriuret Pep 09/22/17 09/22/17 09/22/17 06:10 12:04 12:04 Creatine Kinase 38 CK-MB (CK-2) 0.96 0.89 Troponin I 0.158 0.121 NT-Pro-B Natriuret Pep EKG Comments: Showed a 5 beat run of wide-complex tachycardia, most likely ventricular tachycardia Impressions: Chest X-Ray 09/20/17 00:00 IMPRESSION: Increasing fluid overload or congestive failure superimposed on obstructive disease. Assessment & Plan - Diagnosis (1) Acute respiratory failure with hypoxia and hypercapnia Is this a current diagnosis for this admission?: Yes (2) COPD (chronic obstructive pulmonary disease) Is this a current diagnosis for this admission?: Yes (3) Elevated troponin Is this a current diagnosis for this admission?: Yes (4) Hypertension Qualifiers: Hypertension type: essential hypertension Qualified Code(s): I10 - Essential (primary) hypertension Is this a current diagnosis for this admission?: Yes (5) Hypokalemia Is this a current diagnosis for this admission?: Yes (6) Cardiac dysrhythmia Qualifiers: Premature depolarization type: atrial Is this a current diagnosis for this admission?: Yes (7) Multifocal atrial tachycardia Is this a current diagnosis for this admission?: Yes (8) NSVT (nonsustained ventricular tachycardia) Is this a current diagnosis for this admission?: Yes - Notes Notes: Patient generally much improved. However was noted to have nonsustained wide- complex tachycardia. Will add small dose of beta-eulalio. Observe patient for increased wheezing, maintain electrolytes within normal limits. Will repeat an EKG to look for any ischemic changes especially since patient had elevated troponin I on admission. Still do not feel patient would benefit from ischemia evaluation. Atrial fibrillation with rapid ventricular response: Patient currently in sinus rhythm and maintaining sinus rhythm. Recommend correcting electrolytes. Do not feel patient needs chronic anticoagulation at this point as these could well be related to COPD exacerbation. Patient also being underweight and elderly has increased risk of bleed. However would recommend DVT prophylaxis. COPD with exacerbation: Continue above management. Elevated troponin I: [place] to be related to severe hypoxemia, transient hypotension etc. Patient did not have any chest pain. Had a long discussion with patient's daughter, it was felt that patient would not be a candidate for any ischemia evaluation given severe COPD which is probably end-stage. No intervention planned at this point unless patient has recurrent chest pain. Hypertension: Blood pressure goal is 140/90 although a more liberal goal is acceptable in this elderly patient. Cardiac dysrhythmia: Previous review of rhythm strips definitely showed paroxysmal atrial flutter and atrial fibrillation. At this point recommend Cardizem therapy, and intermittent digoxin as needed. 2D echo results reviewed. Showed LVEF to be relatively well-preserved. Hypokalemia: Recommend replacement to get potassium level above 4 mEq /L. CHF: BNP noted to be elevated. Most likely related to diastolic dysfunction and possibly some right heart failure. May have been over diuresed. Currently diuretics on hold. - Time Time with patient: 15-25 minutes - CODE STATUS was discussed, patient remains full code. Surrogate decision-maker unchanged. Multiple medical problems were addressed. More than 50% of the time spent coordinating care, discussing management plans with involved caregivers. Management plans discussed with involved personnels. Medical decision making was of moderate to high complexity , patient's has multiple comorbidities. Medications reviewed and adjusted accordingly: Yes
[2017-09-24] MEDS ORDERED: METOPROLOL SUCCINATE 25 MG TAB.SR.24H PO ONE (11:00)
[2017-09-24] MEDS ORDERED: DILTIAZEM HCL 180 MG CAPSULE.CR PO SCH (13:08)
--- NOTE | 2017-09-24 15:12 | RADIOLOGY REPORT (SQ) ---
EXAM DESCRIPTION: CT CHEST WITH COMPLETED DATE/TIME: 09/24/2017 2:56 pm REASON FOR STUDY: eval for lung mass COMPARISON: Chest films 09/17/2017, 09/18/2017, 09/19/2017, 09/20/2017 TECHNIQUE: CT scan of the chest performed using helical scanning technique with dynamic intravenous contrast injection. Images reviewed with lung, soft tissue and bone windows. Reconstructed coronal and sagittal MPR images reviewed. All images stored on PACS. All CT scanners at this facility use dose modulation, iterative reconstruction, and/or weight based d osing when appropriate to reduce radiation dose to as low as reasonably achievable (ALARA). [facility]: Dose Right [facility]: CareDose [facility]: Dose Right [facility]: Teradose 4D [facility]: myseekit CONTRAST TYPE AND DOSE: contrast/concentration: Isovue 370.00 mg/ml; Total Contrast Delivered: 80.0 ml; Total Saline Delivered: 55.0 ml RENAL FUNCTION: Creatinine 0.95 RADIATION DOSE: CT Rad equipment meets quality standard of care and radiation dose reduction techniq ues were employed. CTDIvol: 3.2 mGy. DLP: 130 mGy-cm. . LIMITATIONS: None. FINDINGS: LUNGS AND PLEURA: Focal dense consolidation is present in the right and left posterior cos tophrenic sulci, atelectasis versus pneumonia. An underlying malignant mass in the posterior right a nd left lung base could not entirely be excluded. Consider repeat noncontrast CT chest in 4 to 6 wee ks after the patient's acute condition resolves. Patient has end-stage appearance of COPD with enlarged airspaces throughout the right and left lung. Airways are patent. No pneumothorax Trace left pleural effusion HILAR AND MEDIASTINAL STRUCTURES: No identified masses or abnormal nodes. HEART AND VASCULAR STRUCTURES: Ectasia of the thoracic aorta distally, above the diaphragmatic hiatus , the distal thoracic aorta measures 3.7 cm in greatest diameter. In the upper abdomen, just below t he renal arteries at abdominal aortic aneurysm is suspected with mural thrombus. This is incompletel y imaged by this CT exam and measures 3.8 cm in diameter. Follow-up ultrasound of the abdominal aort a is recommended. No central pulmonary emboli. No pericardial effusion. HARDWARE: None in the chest. THYROID AND OTHER SOFT TISSUES: No masses. No adenopathy. BONES: No significant finding. OTHER: No other significant finding. IMPRESSION: Bibasilar airspace disease with trace left pleural effusion. Recommend repeat CT in 4 t o 6 weeks without IV contrast, when the patient's condition resolves for evaluation of potential lung mass. End-stage appearance of obstructive lung disease Ectatic distal thoracic aorta At the bottom edge of our chest CT field of view, an abdominal aortic aneurysm is present which was i ncompletely evaluated. Recommend follow-up abdominal aorta ultrasound for further evaluation TECHNICAL DOCUMENTATION: JOB ID: [id number] Quality ID # [id number]: Final reports with documentation of one or more dose reduction techniques (e.g., Au tomated exposure control, adjustment of the mA and/or kV according to patient size, use of iterative reconstruction technique) 2010 [employer]- All Rights Reserved Reading location - IP/workstation name: [email or web address]
[2017-09-24] MEDS: DILTIAZEM HCL 240 MG CAPSULE.CR PO SCH (17:59)
[2017-09-24] MEDS: FLUTICASONE/SALMETEROL DISKUS 500-50 MCG/DOSE IH SCH (21:27)
[2017-09-24] MEDS: METOPROLOL SUCCINATE 25 MG TAB.SR.24H PO SCH (21:28)
--- NOTE | 2017-09-24 22:40 | EKG REPORT ---
SEVERITY:- ABNORMAL ECG - SINUS RHYTHM WITH ATRIAL BIGEMINI PROBABLE LEFT ATRIAL ABNORMALITY LEFT AXIS DEVIATION LOW VOLTAGE IN FRONTAL LEADS BORDERLINE R WAVE PROGRESSION, ANTERIOR LEADS BORDERLINE T ABNORMALITIES, ANT-LAT LEADS : Confirmed by: Gina Moreno 24-Sep-2017 22:39:47
[2017-09-25 04:30] LABS: HEMATOCRIT 46.7 % (36.0-47.0); HEMOGLOBIN 15.5 g/dL (12.0-15.5); MEAN CORPUSCULAR HEMOGLOBIN 30.6 pg (27.0-33.4); MEAN CORPUSCULAR HGB CONC 33.1 g/dL (32.0-36.0); MEAN CORPUSCULAR VOLUME 93 fl (80-97); PLATELET COUNT 267 10^3/uL (150-450); RED BLOOD COUNT 5.05 10^6/uL (3.72-5.28); RED CELL DISTRIBUTION WIDTH 13.7 % (11.5-14.0); WHITE BLOOD COUNT 19.2 10^3/uL (4.0-10.5)
[2017-09-25 04:35] LABS: ANION GAP 7 (5-19); BLOOD UREA NITROGEN 33 mg/dL (7-20); CALCIUM 9.3 mg/dL (8.4-10.2); CARBON DIOXIDE 36 mmol/L (22-30); CHLORIDE 95 mmol/L (98-107); GLUCOSE 152 mg/dL (75-110); POTASSIUM 3.5 mmol/L (3.6-5.0); SODIUM 137.5 mmol/L (137-145)
[2017-09-25 05:01] LABS: ABSOLUTE LYMPHOCYTES# (MANUAL) 1.2 10^3/uL (0.5-4.7); ABSOLUTE MONOCYTES # (MANUAL) 1.2 10^3/uL (0.1-1.4); ABSOLUTE NEUTROPHILS# (MANUAL) 16.9 10^3/uL (1.7-8.2); BAND NEUTROPHILS % (MANUAL) 5 % (3-5); BASOPHILS % (MANUAL) 0 % (0-2); EOSINOPHILS % (MANUAL) 0 % (0-6); LYMPHOCYTES % (MANUAL) 6 % (13-45); MONOCYTES % (MANUAL) 6 % (3-13); SEGMENTED NEUTROPHILS % (MAN) 83 % (42-78); TOTAL CELLS COUNTED 100
[2017-09-25 05:02] LABS: PLATELET COMMENT ADEQUATE; RBC MORPHOLOGY COMMENT NORMO-CYTIC/CHROMIC
[2017-09-25] MEDS: IPRATROPIUM/ALBUTEROL 0.5-2.5 MG/3 ML AMPUL NEB SCH ×2 (07:42→13:28)
[2017-09-25] MEDS: FLUTICASONE/SALMETEROL DISKUS 500-50 MCG/DOSE IH SCH ×2 (09:14→22:11)
[2017-09-25] MEDS: FUROSEMIDE INJ/PF 20 MG/2 ML SDV IV SCH (09:15)
[2017-09-25] MEDS: METOPROLOL SUCCINATE 25 MG TAB.SR.24H PO SCH ×2 (09:16→22:10)
[2017-09-25] MEDS: METHYLPREDNISOLONE INJ 40 MG/1 ML SDV IV SCH (09:16)
[2017-09-25] MEDS: MULTIVIT-STRESS FORMULA/ZINC TABLET PO SCH (09:16)
[2017-09-25] MEDS ORDERED: LEVOFLOXACIN 750 MG TABLET PO SCH (10:00)
[2017-09-25] MEDS: DEXTROSE 5%-1/2 NORMAL SALINE 1,000 ML IV PRN (10:56)
[2017-09-25] MEDS ORDERED: CEFUROXIME 500 MG TABLET PO ONE (11:30)
--- NOTE | 2017-09-25 12:36 | PDOC PROGRESS REPORT ---
Subjective Progress Note for:: 09/25/17 Subjective:: Patient seems to be doing better. However on cardiac monitoring she was noted to have an episode of nonsustained wide-complex tachycardia most likely V. tach yesterday that has been no recurrences. Patient however was asymptomatic. Patient apparently got some beta-eulalio. Will recommend low-dose beta-eulalio therapy. Patient is maintaining sinus rhythm, frequent APCs noted. Review of systems: Rest review of systems negative. Medications: Medications have been reviewed. Reason For Visit: SEPSIS Physical Exam Vital Signs: Temp Pulse Resp BP Pulse Ox 97.9 F 80 18 144/76 H 94 09/25/17 07:20 09/25/17 07:42 09/25/17 07:42 09/25/17 07:20 09/25/17 07:42 Intake & Output 09/24/17 09/25/17 09/26/17 06:59 06:59 06:59 Intake Total 2169 2337 Output Total 600 300 Balance 1569 2037 Weight 48.1 kg 49.7 kg Exam: GENERAL: well-nourished and in no acute distress. Alert and oriented x3 HEAD: Atraumatic, normocephalic. EYES: Pupils equal round and reactive to light, extraocular movements intact, sclera anicteric, conjunctiva are normal. ENT: TMs normal, nares patent, oropharynx clear without exudates. Moist mucous membranes. No oral ulcerations or bleeding gums noted NECK: supple without lymphadenopathy. Trachea is central. No cervical or axillary lymphadenopathy noted. Carotids are 2+, JVD WNL LUNGS: Respiration seems nonlabored, no significant accessory muscle action noted. Few a scattered wheezes rales or rhonchi noted. No significant dullness noted on percussion. CHEST: Palpation of the chest wall shows no significant chest wall tenderness. No other significant abnormalities noted. 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 ABDOMEN: Soft, no significant tenderness appreciated, normoactive bowel sounds. No guarding, no rebound. No rigidity noted . No masses appreciated. EXTREMITIES: Pedal pulses are 1-2+, no calf tenderness noted. No clubbing or cyanosis. negative pedal edema noted NEUROLOGICAL: Focused neurological exam showed no significant neurologic deficit. Normal speech, no focal weakness appreciated. PSYCH: Normal mood, normal affect. Judgment and insight within normal limits. SKIN: No significant ecchymosis, skin is noted to be warm. MUSCULOSKELETAL EXAM: No significant acute joint swelling noted. Results Laboratory Results: 09/25/17 03:47 09/25/17 03:47 09/25/17 09/25/17 03:47 03:47 WBC 19.2 H RBC 5.05 Hgb 15.5 Hct 46.7 MCV 93 MCH 30.6 MCHC 33.1 RDW 13.7 Plt Count 267 Seg Neutrophils % Not Reportable Lymphocytes % Not Reportable Monocytes % Not Reportable Eosinophils % Not Reportable Basophils % Not Reportable Absolute Neutrophils Not Reportable Absolute Lymphocytes Not Reportable Absolute Monocytes Not Reportable Absolute Eosinophils Not Reportable Absolute Basophils Not Reportable Sodium 137.5 Potassium 3.5 L Chloride 95 L Carbon Dioxide 36 H Anion Gap 7 BUN 33 H Creatinine 0.89 Est GFR ( Amer) > 60 Est GFR (Non-Af Amer) > 60 Glucose 152 H Calcium 9.3 Magnesium 2.0 09/17/17 09/17/17 09/22/17 17:57 23:45 00:28 Creatine Kinase CK-MB (CK-2) Troponin I 1.080 0.829 NT-Pro-B Natriuret Pep 7810 H 09/22/17 09/22/17 09/22/17 00:28 00:28 06:10 Creatine Kinase 49 41 CK-MB (CK-2) 0.93 Troponin I 0.185 NT-Pro-B Natriuret Pep 09/22/17 09/22/17 09/22/17 06:10 12:04 12:04 Creatine Kinase 38 CK-MB (CK-2) 0.96 0.89 Troponin I 0.158 0.121 NT-Pro-B Natriuret Pep EKG Comments: Telemetry shows sinus rhythm without any sustained tachycardia or bradycardia. Impressions: Chest X-Ray 09/20/17 00:00 IMPRESSION: Increasing fluid overload or congestive failure superimposed on obstructive disease. Chest CT 09/24/17 00:00 IMPRESSION: Bibasilar airspace disease with trace left pleural effusion. Recommend repeat CT in 4 to 6 weeks without IV contrast, when the patient's condition resolves for evaluation of potential lung mass. End-stage appearance of obstructive lung disease Ectatic distal thoracic aorta At the bottom edge of our chest CT field of view, an abdominal aortic aneurysm is present which was incompletely evaluated. Recommend follow-up abdominal aorta ultrasound for further evaluation Assessment & Plan - Diagnosis (1) Acute respiratory failure with hypoxia and hypercapnia Is this a current diagnosis for this admission?: Yes (2) COPD (chronic obstructive pulmonary disease) Qualifiers: Chronic bronchitis type: unspecified Is this a current diagnosis for this admission?: Yes (3) Elevated troponin Is this a current diagnosis for this admission?: Yes (4) Hypertension Qualifiers: Hypertension type: essential hypertension Qualified Code(s): I10 - Essential (primary) hypertension Is this a current diagnosis for this admission?: Yes (5) Hypokalemia Is this a current diagnosis for this admission?: Yes (6) Cardiac dysrhythmia Qualifiers: Premature depolarization type: atrial Is this a current diagnosis for this admission?: Yes (7) Multifocal atrial tachycardia Is this a current diagnosis for this admission?: Yes (8) NSVT (nonsustained ventricular tachycardia) Is this a current diagnosis for this admission?: Yes - Notes Notes: Nonsustained ventricular tachycardia: No recurrence. Patient was noted to be asymptomatic. Recommend low-dose beta-eulalio therapy and observe for wheezing. Also maintain electrolytes within normal limits. Twelve-lead EKG obtained this morning shows atrial bigeminy but no acute ST-T wave changes. Atrial fibrillation with rapid ventricular response: Patient currently in sinus rhythm and maintaining sinus rhythm. Recommend correcting electrolytes. Do not feel patient needs chronic anticoagulation at this point as these could well be related to COPD exacerbation. Patient also being underweight and elderly has increased risk of bleed. However would recommend DVT prophylaxis. COPD with exacerbation: Continue above management. Elevated troponin I: [place] to be related to severe hypoxemia, transient hypotension etc. Patient did not have any chest pain. Had a long discussion with patient's daughter, it was felt that patient would not be a candidate for any ischemia evaluation given severe COPD which is probably end-stage. No intervention planned at this point unless patient has recurrent chest pain. Hypertension: Blood pressure goal is 140/90 although a more liberal goal is acceptable in this elderly patient. Cardiac dysrhythmia: Previous review of rhythm strips definitely showed paroxysmal atrial flutter and atrial fibrillation. At this point recommend Cardizem therapy, and intermittent digoxin as needed. 2D echo results reviewed. Showed LVEF to be relatively well-preserved. Hypokalemia: Recommend replacement to get potassium level above 4 mEq /L. CHF: BNP noted to be elevated. Most likely related to diastolic dysfunction and possibly some right heart failure. Recommend today switching to p.o. Lasix at 20 mg daily. - Time Time with patient: 15-25 minutes - CODE STATUS was discussed, patient remains full code. Surrogate decision-maker unchanged. Multiple medical problems were addressed. More than 50% of the time spent coordinating care, discussing management plans with involved caregivers. Management plans discussed with involved personnels. Medical decision making was of moderate to high complexity , patient's has multiple comorbidities. Medications reviewed and adjusted accordingly: Yes
[2017-09-25] MEDS ORDERED: POTASSIUM CHLORIDE 10 MEQ TABLET.SA PO ONE (16:30)
--- NOTE | 2017-09-25 17:56 | PDOC PROGRESS REPORT ---
Subjective Progress Note for:: 09/24/17 Subjective:: No complaints. Patient found sitting on chair comfortably Review of system All organ systems evaluated and negative except as in subjective All significant laboratories and diagnostics have been reviewed Reason For Visit: SEPSIS Physical Exam Vital Signs: Temp Pulse Resp BP Pulse Ox 97.4 F 81 25 H 151/80 H 98 09/24/17 04:29 09/24/17 04:29 09/24/17 04:29 09/24/17 04:29 09/24/17 04:29 Intake & Output 09/22/17 09/23/17 09/24/17 06:59 06:59 06:59 Intake Total 2135 1114 1269 Output Total 2205 1775 600 Balance -70 -661 669 Weight 47.4 kg 49.3 kg General appearance: PRESENT: no acute distress, cooperative, thin Head exam: PRESENT: atraumatic, normocephalic Eye exam: PRESENT: conjunctiva pink, EOMI, PERRLA Mouth exam: PRESENT: moist Neck exam: PRESENT: full ROM. ABSENT: JVD, lymphadenopathy, tenderness Respiratory exam: PRESENT: clear to auscultation rian Cardiovascular exam: PRESENT: diastolic murmur, irregular rhythm, systolic murmur GI/Abdominal exam: PRESENT: normal bowel sounds, soft. ABSENT: tenderness Extremities exam: PRESENT: full ROM, pedal edema Musculoskeletal exam: PRESENT: ambulatory Neurological exam: PRESENT: alert, awake, oriented to person, oriented to place , oriented to time, oriented to situation, CN II-XII grossly intact Psychiatric exam: PRESENT: appropriate affect, normal mood Skin exam: PRESENT: intact, normal color Results Laboratory Results: 09/24/17 04:17 09/24/17 04:17 09/24/17 09/24/17 04:17 04:17 WBC 13.0 H RBC 5.07 Hgb 15.8 H Hct 47.1 H MCV 93 MCH 31.1 MCHC 33.5 RDW 13.6 Plt Count 253 Seg Neutrophils % Not Reportable Lymphocytes % Not Reportable Monocytes % Not Reportable Eosinophils % Not Reportable Basophils % Not Reportable Absolute Neutrophils Not Reportable Absolute Lymphocytes Not Reportable Absolute Monocytes Not Reportable Absolute Eosinophils Not Reportable Absolute Basophils Not Reportable Sodium 139.0 Potassium 3.7 Chloride 99 Carbon Dioxide 34 H Anion Gap 6 BUN 32 H Creatinine 0.95 Est GFR ( Amer) > 60 Est GFR (Non-Af Amer) 56 L Glucose 173 H Calcium 9.2 Magnesium 1.9 Total Bilirubin 0.2 AST 21 ALT 39 Alkaline Phosphatase 62 Total Protein 5.4 L Albumin 3.1 L 09/17/17 09/17/17 09/22/17 17:57 23:45 00:28 Creatine Kinase CK-MB (CK-2) Troponin I 1.080 0.829 NT-Pro-B Natriuret Pep 7810 H 09/22/17 09/22/17 09/22/17 00:28 00:28 06:10 Creatine Kinase 49 41 CK-MB (CK-2) 0.93 Troponin I 0.185 NT-Pro-B Natriuret Pep 09/22/17 09/22/17 09/22/17 06:10 12:04 12:04 Creatine Kinase 38 CK-MB (CK-2) 0.96 0.89 Troponin I 0.158 0.121 NT-Pro-B Natriuret Pep Impressions: Chest X-Ray 09/20/17 00:00 IMPRESSION: Increasing fluid overload or congestive failure superimposed on obstructive disease. Assessment & Plan - Diagnosis (1) Acute respiratory failure with hypoxia and hypercapnia Is this a current diagnosis for this admission?: Yes Plan: Continue oxygen supplementation and will wean off as tolerated. (2) Atrial fibrillation Qualifiers: Atrial fibrillation type: paroxysmal Qualified Code(s): I48.0 - Paroxysmal atrial fibrillation Is this a current diagnosis for this admission?: Yes Plan: Stable (3) COPD (chronic obstructive pulmonary disease) Qualifiers: Chronic bronchitis type: unspecified Is this a current diagnosis for this admission?: Yes Plan: To transition to oral steroids. To add Spiriva and continue Advair, Mucinex and change DuoNeb to as needed (4) Elevated troponin Is this a current diagnosis for this admission?: Yes Plan: Likely due to myocardial demand ischemia. (5) Pneumonia Qualifiers: Pneumonia type: due to unspecified organism Lung location: unspecified part of lung Is this a current diagnosis for this admission?: Yes Plan: Change to ceftin (6) Septic shock Is this a current diagnosis for this admission?: Yes Plan: Resolved (7) Severe protein-calorie malnutrition Is this a current diagnosis for this admission?: Yes Plan: Noted dietitian's recommendation. Will start Remeron and follow-up response however will take a couple of days - Time Time Spent with patient: 15-24 minutes Medications reviewed and adjusted accordingly: Yes Anticipated discharge: Home with Homehealth Within: within 72 hours - Inpatient Certification Based on my medical assessment, after consideration of the patient's comorbidities, presenting symptoms, or acuity I expect that the services needed warrant INPATIENT care.: Yes I certify that my determination is in accordance with my understanding of Medicare's requirements for reasonable and necessary INPATIENT services [42 CFR 412.3e].: Yes Medical Necessity: Need Close Monitoring Due to Risk of Patient Decompensation, Need for Nebulizer Therapy and Monitoring of Response
[2017-09-25] MEDS: CEFUROXIME 500 MG TABLET PO SCH (18:14)
[2017-09-25] MEDS: DILTIAZEM HCL 240 MG CAPSULE.CR PO SCH (18:14)
[2017-09-25] MEDS: MIRTAZAPINE 15 MG TABLET PO SCH (22:09)
[2017-09-25] MEDS: BIMATOPROST 0.01% OPH SOLN 2.5 ML/BOTTLE OU SCH (22:11)
[2017-09-26] MEDS: DEXTROSE 5%-1/2 NORMAL SALINE 1,000 ML IV PRN ×2 (00:58→15:34)
[2017-09-26] MEDS: MULTIVIT-STRESS FORMULA/ZINC TABLET PO SCH (09:34)
[2017-09-26] MEDS: METOPROLOL SUCCINATE 25 MG TAB.SR.24H PO SCH ×2 (09:35→22:16)
[2017-09-26] MEDS: CEFUROXIME 500 MG TABLET PO SCH ×2 (09:35→17:26)
[2017-09-26] MEDS: TIOTROPIUM BROMIDE DPI 5 CAP/KIT (18 MCG/CAP) IH SCH (09:36)
[2017-09-26] MEDS: FUROSEMIDE INJ/PF 20 MG/2 ML SDV IV SCH (09:36)
[2017-09-26] MEDS: FLUTICASONE/SALMETEROL DISKUS 500-50 MCG/DOSE IH SCH ×2 (09:37→22:16)
[2017-09-26] MEDS ORDERED: PREDNISONE 20 MG TABLET PO SCH (10:00)
[2017-09-26] MEDS ORDERED: LISINOPRIL 10 MG TABLET PO ONE (12:10)
--- NOTE | 2017-09-26 12:23 | PDOC PROGRESS REPORT ---
Subjective Progress Note for:: 09/26/17 Subjective:: No complaints. Patient relates that was able to sleep good last night. She has been trying to increase oral intake Review of system All organ systems evaluated and negative except as in subjective All significant laboratories and diagnostics have been reviewed Reason For Visit: SEPSIS Physical Exam Vital Signs: Temp Pulse Resp BP Pulse Ox 97.6 F 62 14 140/80 H 93 09/26/17 08:27 09/26/17 08:27 09/26/17 08:27 09/26/17 08:27 09/26/17 08:27 Intake & Output 09/25/17 09/26/17 09/27/17 06:59 06:59 06:59 Intake Total 2337 2796 Output Total 300 1050 Balance 2037 1746 Weight 49.7 kg 49.2 kg General appearance: PRESENT: no acute distress, cooperative, thin Head exam: PRESENT: atraumatic, normocephalic Eye exam: PRESENT: conjunctiva pink, EOMI, PERRLA Ear exam: PRESENT: normal external ear exam Mouth exam: PRESENT: moist Neck exam: PRESENT: full ROM. ABSENT: JVD, lymphadenopathy, tenderness Respiratory exam: ABSENT: tachypnea - Adequate movement of air with crackles, unlabored Cardiovascular exam: PRESENT: irregular rhythm. ABSENT: diastolic murmur, systolic murmur Vascular exam: PRESENT: normal capillary refill GI/Abdominal exam: PRESENT: normal bowel sounds, soft. ABSENT: tenderness Extremities exam: PRESENT: full ROM, pedal edema Musculoskeletal exam: PRESENT: ambulatory Neurological exam: PRESENT: alert, awake, oriented to person, oriented to place , oriented to time, oriented to situation, CN II-XII grossly intact Psychiatric exam: PRESENT: appropriate affect, normal mood Skin exam: PRESENT: intact, normal color Results Laboratory Results: 09/25/17 03:47 09/25/17 03:47 09/17/17 09/17/17 09/22/17 17:57 23:45 00:28 Creatine Kinase CK-MB (CK-2) Troponin I 1.080 0.829 NT-Pro-B Natriuret Pep 7810 H 09/22/17 09/22/17 09/22/17 00:28 00:28 06:10 Creatine Kinase 49 41 CK-MB (CK-2) 0.93 Troponin I 0.185 NT-Pro-B Natriuret Pep 04/01/18 04/01/18 04/01/18 06:10 12:04 12:04 Creatine Kinase 38 CK-MB (CK-2) 0.96 0.89 Troponin I 0.158 0.121 NT-Pro-B Natriuret Pep Impressions: Chest X-Ray 09/20/17 00:00 IMPRESSION: Increasing fluid overload or congestive failure superimposed on obstructive disease. Chest CT 09/24/17 00:00 IMPRESSION: Bibasilar airspace disease with trace left pleural effusion. Recommend repeat CT in 4 to 6 weeks without IV contrast, when the patient's condition resolves for evaluation of potential lung mass. End-stage appearance of obstructive lung disease Ectatic distal thoracic aorta At the bottom edge of our chest CT field of view, an abdominal aortic aneurysm is present which was incompletely evaluated. Recommend follow-up abdominal aorta ultrasound for further evaluation Assessment & Plan - Diagnosis (1) Acute respiratory failure with hypoxia and hypercapnia Is this a current diagnosis for this admission?: Yes Plan: Continue oxygen supplementation. Consult case management since patient will need oxygen supplementation on discharge (2) Atrial fibrillation Qualifiers: Atrial fibrillation type: paroxysmal Qualified Code(s): I48.0 - Paroxysmal atrial fibrillation Is this a current diagnosis for this admission?: Yes Plan: Stable (3) COPD (chronic obstructive pulmonary disease) Qualifiers: Chronic bronchitis type: unspecified Is this a current diagnosis for this admission?: Yes Plan: To discontinue prednisone. Otherwise continue Advair, Spiriva and nebulizer treatments as needed (4) Elevated troponin Is this a current diagnosis for this admission?: Yes Plan: Likely due to myocardial demand ischemia. (5) Pneumonia Qualifiers: Pneumonia type: due to unspecified organism Lung location: unspecified part of lung Is this a current diagnosis for this admission?: Yes Plan: Continue Ceftin for 5 days (6) Septic shock Is this a current diagnosis for this admission?: Yes Plan: Resolved (7) Severe protein-calorie malnutrition Is this a current diagnosis for this admission?: Yes Plan: Noted dietitian's recommendation. Continue Remeron (8) Hypertension Qualifiers: Hypertension type: essential hypertension Qualified Code(s): I10 - Essential (primary) hypertension Is this a current diagnosis for this admission?: Yes Plan: Add lisinopril to current regimen (9) KEITH (acute kidney injury) Is this a current diagnosis for this admission?: Yes Plan: Improved - Time Time Spent with patient: 15-24 minutes Medications reviewed and adjusted accordingly: Yes Anticipated discharge: Home with Homehealth Within: within 24 hours - Inpatient Certification Based on my medical assessment, after consideration of the patient's comorbidities, presenting symptoms, or acuity I expect that the services needed warrant INPATIENT care.: Yes I certify that my determination is in accordance with my understanding of Medicare's requirements for reasonable and necessary INPATIENT services [42 CFR 412.3e].: Yes Medical Necessity: Need Close Monitoring Due to Risk of Patient Decompensation
[2017-09-26] MEDS: DILTIAZEM HCL 240 MG CAPSULE.CR PO SCH (17:26)
--- NOTE | 2017-09-26 19:51 | PDOC PROGRESS REPORT ---
Subjective Progress Note for:: 09/26/17 Subjective:: Patient seems to be doing better. However on cardiac monitoring she was noted to have an episode of nonsustained wide-complex tachycardia most likely V. tach yesterday that has been no recurrences. Patient however was asymptomatic. Patient apparently got some beta-eulalio. Will recommend low-dose beta-eulalio therapy. Patient is maintaining sinus rhythm, frequent APCs noted. Review of systems: Rest review of systems negative. Medications: Medications have been reviewed. Reason For Visit: SEPSIS Physical Exam Vital Signs: Temp Pulse Resp BP Pulse Ox 97.6 F 63 17 145/62 H 93 09/26/17 12:21 09/26/17 12:21 09/26/17 12:21 09/26/17 12:21 09/26/17 12:21 Intake & Output 09/25/17 09/26/17 09/27/17 06:59 06:59 06:59 Intake Total 2337 2796 100 Output Total 300 1050 800 Balance 2037 1746 -700 Weight 49.7 kg 49.2 kg Exam: GENERAL: well-nourished and in no acute distress. Alert and oriented x3 HEAD: Atraumatic, normocephalic. EYES: Pupils equal round and reactive to light, extraocular movements intact, sclera anicteric, conjunctiva are normal. ENT: TMs normal, nares patent, oropharynx clear without exudates. Moist mucous membranes. No oral ulcerations or bleeding gums noted NECK: supple without lymphadenopathy. Trachea is central. No cervical or axillary lymphadenopathy noted. Carotids are 2+, JVD WNL LUNGS: Respiration seems nonlabored, no significant accessory muscle action noted. Few a scattered wheezes rales or rhonchi noted. No significant dullness noted on percussion. CHEST: Palpation of the chest wall shows no significant chest wall tenderness. No other significant abnormalities noted. HEART: [employer], No PSH, 1/6 SOR[place]IDA aortic area, 1/6 mar[place] systolic murmur mitral area, no rubs, no gallops. ABDOMEN: Soft, no significant tenderness appreciated, normoactive bowel sounds. No guarding, no rebound. No rigidity noted . No masses appreciated. EXTREMITIES: Pedal pulses are 1-2+, no calf tenderness noted. No clubbing or cyanosis. negative pedal edema noted NEUROLOGICAL: Focused neurological exam showed no significant neurologic deficit. Normal speech, no focal weakness appreciated. PSYCH: Normal mood, normal affect. Judgment and insight within normal limits. SKIN: No significant ecchymosis, skin is noted to be warm. MUSCULOSKELETAL EXAM: No significant acute joint swelling noted. Results Laboratory Results: 09/25/17 03:47 09/25/17 03:47 09/17/17 09/17/17 09/22/17 17:57 23:45 00:28 Creatine Kinase CK-MB (CK-2) Troponin I 1.080 0.829 NT-Pro-B Natriuret Pep 7810 H 09/22/17 09/22/17 09/22/17 00:28 00:28 06:10 Creatine Kinase 49 41 CK-MB (CK-2) 0.93 Troponin I 0.185 NT-Pro-B Natriuret Pep 09/22/17 09/22/17 09/22/17 06:10 12:04 12:04 Creatine Kinase 38 CK-MB (CK-2) 0.96 0.89 Troponin I 0.158 0.121 NT-Pro-B Natriuret Pep EKG Comments: Telemetry shows sinus rhythm with frequent APCs and occasional VPCs. Impressions: Chest X-Ray 09/20/17 00:00 IMPRESSION: Increasing fluid overload or congestive failure superimposed on obstructive disease. Chest CT 09/24/17 00:00 IMPRESSION: Bibasilar airspace disease with trace left pleural effusion. Recommend repeat CT in 4 to 6 weeks without IV contrast, when the patient's condition resolves for evaluation of potential lung mass. End-stage appearance of obstructive lung disease Ectatic distal thoracic aorta At the bottom edge of our chest CT field of view, an abdominal aortic aneurysm is present which was incompletely evaluated. Recommend follow-up abdominal aorta ultrasound for further evaluation Assessment & Plan - Diagnosis (1) Acute respiratory failure with hypoxia and hypercapnia Is this a current diagnosis for this admission?: Yes (2) COPD (chronic obstructive pulmonary disease) Qualifiers: Chronic bronchitis type: unspecified Is this a current diagnosis for this admission?: Yes (3) Elevated troponin Is this a current diagnosis for this admission?: Yes (4) Hypertension Qualifiers: Hypertension type: essential hypertension Qualified Code(s): I10 - Essential (primary) hypertension Is this a current diagnosis for this admission?: Yes (5) Hypokalemia Is this a current diagnosis for this admission?: Yes (6) Cardiac dysrhythmia Qualifiers: Premature depolarization type: atrial Is this a current diagnosis for this admission?: Yes (7) Multifocal atrial tachycardia Is this a current diagnosis for this admission?: Yes (8) NSVT (nonsustained ventricular tachycardia) Is this a current diagnosis for this admission?: Yes - Notes Notes: Nonsustained ventricular tachycardia: No recurrence. Patient was noted to be asymptomatic. Continue low-dose beta-eulalio therapy and observe for wheezing. Also maintain electrolytes within normal limits. Previous twelve-lead EKGs were reviewed. Do not feel patient needs ischemia workup. Atrial fibrillation with rapid ventricular response: Patient currently in sinus rhythm and maintaining sinus rhythm. Recommend correcting electrolytes. Do not feel patient needs chronic anticoagulation at this point as these could well be related to COPD exacerbation. Patient also being underweight and elderly has increased risk of bleed. However would recommend DVT prophylaxis. COPD with exacerbation: Continue above management. Elevated troponin I: [place] to be related to severe hypoxemia, transient hypotension etc. Patient did not have any chest pain. Had a long discussion with patient's daughter, it was felt that patient would not be a candidate for any ischemia evaluation given severe COPD which is probably end-stage. No intervention planned at this point unless patient has recurrent chest pain. Hypertension: Blood pressure goal is 140/90 although a more liberal goal is acceptable in this elderly patient. Cardiac dysrhythmia: Previous review of rhythm strips definitely showed paroxysmal atrial flutter and atrial fibrillation. At this point recommend Cardizem therapy, and intermittent digoxin as needed. 2D echo results reviewed. Showed LVEF to be relatively well-preserved. Hypokalemia: Recommend replacement to get potassium level above 4 mEq /L. CHF: BNP noted to be elevated. Most likely related to diastolic dysfunction and possibly some right heart failure. Continue p.o. Lasix at 20 mg daily. Patient currently on a stable regimen. Will sign off at this point. Please reconsult if needed. - Time Time with patient: Greater than 35 minutes - CODE STATUS was discussed, patient remains full code. Surrogate decision-maker unchanged. Multiple medical problems were addressed. More than 50% of the time spent coordinating care, discussing management plans with involved caregivers. Management plans discussed with involved personnels. Medical decision making was of moderate to high complexity, patient's has multiple comorbidities. Medications reviewed and adjusted accordingly: Yes
[2017-09-26] MEDS: MIRTAZAPINE 15 MG TABLET PO SCH (22:16)
[2017-09-26] MEDS: BIMATOPROST 0.01% OPH SOLN 2.5 ML/BOTTLE OU SCH (22:16)
[2017-09-27 05:11] LABS: HEMATOCRIT 44.1 % (36.0-47.0); HEMOGLOBIN 14.6 g/dL (12.0-15.5); MEAN CORPUSCULAR HEMOGLOBIN 30.5 pg (27.0-33.4); MEAN CORPUSCULAR HGB CONC 33.1 g/dL (32.0-36.0); MEAN CORPUSCULAR VOLUME 92 fl (80-97); PLATELET COUNT 278 10^3/uL (150-450); RED BLOOD COUNT 4.78 10^6/uL (3.72-5.28); RED CELL DISTRIBUTION WIDTH 13.8 % (11.5-14.0); WHITE BLOOD COUNT 21.9 10^3/uL (4.0-10.5)
[2017-09-27 05:28] LABS: ALANINE AMINOTRANSFERASE 38 U/L (9-52); ALBUMIN 2.8 g/dL (3.5-5.0); ALKALINE PHOSPHATASE 57 U/L (38-126); ANION GAP 5 (5-19); ASPARTATE AMINO TRANSFERASE 19 U/L (14-36); BILIRUBIN,DIRECT 0.1 mg/dL (0.0-0.4); BILIRUBIN,TOTAL 0.3 mg/dL (0.2-1.3); BLOOD UREA NITROGEN 48 mg/dL (7-20); CALCIUM 9.2 mg/dL (8.4-10.2); CARBON DIOXIDE 34 mmol/L (22-30); CHLORIDE 98 mmol/L (98-107); GLUCOSE 102 mg/dL (75-110); SODIUM 136.5 mmol/L (137-145); TOTAL PROTEIN 4.9 g/dL (6.3-8.2)
[2017-09-27 05:33] LABS: ABSOLUTE LYMPHOCYTES# (MANUAL) 1.1 10^3/uL (0.5-4.7); ABSOLUTE MONOCYTES # (MANUAL) 1.3 10^3/uL (0.1-1.4); ABSOLUTE NEUTROPHILS# (MANUAL) 19.5 10^3/uL (1.7-8.2); BAND NEUTROPHILS % (MANUAL) 3 % (3-5); BASOPHILS % (MANUAL) 0 % (0-2); EOSINOPHILS % (MANUAL) 0 % (0-6); LYMPHOCYTES % (MANUAL) 4 % (13-45); MONOCYTES % (MANUAL) 6 % (3-13); SEGMENTED NEUTROPHILS % (MAN) 86 % (42-78); TOTAL CELLS COUNTED 100
[2017-09-27 05:37] LABS: TOXIC GRANULATION 1+
[2017-09-27 05:38] LABS: PLATELET COMMENT ADEQUATE; PLATELET LARGE PRESENT; RBC MORPHOLOGY COMMENT NORMO-CYTIC/CHROMIC
[2017-09-27] MEDS: DEXTROSE 5%-1/2 NORMAL SALINE 1,000 ML IV PRN (05:55)
[2017-09-27] MEDS: MULTIVIT-STRESS FORMULA/ZINC TABLET PO SCH (09:53)
[2017-09-27] MEDS: CEFUROXIME 500 MG TABLET PO SCH (09:54)
[2017-09-27] MEDS: FLUTICASONE/SALMETEROL DISKUS 500-50 MCG/DOSE IH SCH (09:54)
[2017-09-27] MEDS: TIOTROPIUM BROMIDE DPI 5 CAP/KIT (18 MCG/CAP) IH SCH (09:55)
[2017-09-27] MEDS: METOPROLOL SUCCINATE 25 MG TAB.SR.24H PO SCH (09:55)
[2017-09-27] MEDS ORDERED: FUROSEMIDE 20 MG TABLET PO SCH (10:00)
[2017-09-27] MEDS ORDERED: LISINOPRIL 10 MG TABLET PO SCH (10:00)
[2017-09-27 12:07] VITALS: BP 117/53
--- NOTE | 2017-09-27 15:11 | PDOC DISCHARGE SUMMARY ---
General - Admit/Disc Date/PCP Admission Date/Primary Care Provider: 09/17/17 15:56 MACHO LIRA MD Discharge Date: 09/27/17 - Discharge Diagnosis (1) Acute respiratory failure with hypoxia and hypercapnia Is this a current diagnosis for this admission?: Yes Summary: Patient was admitted with extreme hypoxemia requiring BiPAP therapy. She was empirically started on IV antibiotics for possible community acquired pneumonia. This was ruled out by CT scan. CT of the chest showed end-stage COPD and bilateral airspace disease. There were no acute infiltrates. Patient was able to be weaned down to nasal cannula at 2 L/min. Room air oxygen saturations at rest were 86%. She will be discharged home with oxygen at 2 L/min by nasal cannula continuously (2) COPD (chronic obstructive pulmonary disease) Is this a current diagnosis for this admission?: Yes Summary: Patient was started on Spiriva. Oxygenation improved however she does require oxygen continuously at 2 L/min. (3) Hypertension Is this a current diagnosis for this admission?: Yes Summary: Continue current medications she is normotensive (4) Hypokalemia Is this a current diagnosis for this admission?: Yes Summary: Potassium is normal (5) Multifocal atrial tachycardia Is this a current diagnosis for this admission?: Yes Summary: Resolved on current medications (6) NSVT (nonsustained ventricular tachycardia) Is this a current diagnosis for this admission?: Yes Summary: Resolved with current medications (7) Severe protein-calorie malnutrition Is this a current diagnosis for this admission?: Yes Summary: Patient needs protein supplements (8) KEITH (acute kidney injury) Is this a current diagnosis for this admission?: Yes Summary: Resolved with IV hydration (9) Atrial fibrillation Is this a current diagnosis for this admission?: Yes Summary: Resolved with current medications (10) Elevated troponin Is this a current diagnosis for this admission?: Yes Summary: Secondary to hypoxemia - Additional Information Resuscitation Status: Full Code Discharge Activity: Activity As Tolerated, Energy Conservation, Keep Legs Elevated Prescriptions: Tiotropium [place] [Spiriva Handihaler 5 Cap/Kit (18 Mcg/Cap)] 1 cap IH DAILY # 30 cap Home Medications: Albuterol Sulfate [Proair HFA Inhalation Aerosol 8.5 gm MDI] 2 puff IH Q4HP PRN 09/17/17 Bimatoprost [Lumigan] 1 drop OU QHS 09/17/17 Diltiazem HCl [Diltiazem 24Hr ER] 180 mg PO DAILY 09/17/17 Hydrochlorothiazide 25 mg PO DAILY 09/17/17 Olmesartan Medoxomil 20 mg PO DAILY 09/17/17 Umeclidinium Brm/Vilanterol Tr [Anoro Ellipta 62.5-25 Mcg INH] 1 puff IH DAILY 09/17/17 Vit A/Vit C/Vit E/Zinc/Copper [Preservision Areds Softgel] 1 cap PO DAILY Acetaminophen [Tylenol 325 mg Tablet] 650 mg PO Q6HP PRN tablet 09/27/17 Tiotropium [place] [Spiriva Handihaler 5 Cap/Kit (18 Mcg/Cap)] 1 cap IH DAILY # 30 cap 09/27/17 History of Present Illness Patient complains of: Shortness of breath History of Present Illness: TIFFANIE MEIER is a 82 year old female with PMH of possible Afib on Diltiazem per family, HTN, COPD (only using an albuterol inhaler at home), and continued Tobacco use. Patient's family describes her as normally active and independent. She was helping to mop a floor on a prior day. Patient is now obtunded at the time of the exam, supported on BIPAP with hypercapnea, hopoxic respiratory failure. Family describes her as complaining of getting a cold several days ago. They describe a productive cough with yellow sputum, and a temperature elevation of 99.7. She was noted to have a temperature of 101 in the ED. CXR was consistent with PNA, and her BP was 70s/50s, and tachcardia present, consistent with Septic Shock picture with a PNA source. Patient was responding to limited fluid boluses in the ED, after approximately 400cc, her BP was 100/50 and HR in 80s. I will start stress dose steroids. Family at the bedside states that patient is a Full Code. We will monitor her in the ICU. She is not currently on pressors, but this is a possiblity. Her Afib is rate controled, in the 80s. Her initial lactic acid is non-elevated. Her BNP is elevated, along with her troponin x1. Will trend her troponins. Her family denied any complaints of chest pain during her presentation. Cardiology was consulted, TTE has been ordered. Blood cultures pending, and patient received Azithromycin/Rocephin in ED, but will be continued on Vancomycin/Levaquin/Zosyn after admission. Hospital Course Hospital Course: Patient was admitted to [facility] on BiPAP. She was started empirically on IV antibiotics, nebulizers and inhalers. She had periods of paroxysmal atrial fibrillation and nonsustained ventricular tachycardia. She did rule in for non- STEMI. Cardiology again was consulted and felt this sepsis due to her pulmonary status and not a true type I non-STEMI. Dr. Moreno, internet webmaster felt this is due to a type II non-STEMI due to her hypoxemia. Cardiology was consulted her medications were maximized. She was pancultured. Blood cultures 2 and sputum culture were negative for bacteria. Urine culture is negative as well. IV antibiotics was discontinued after 5 days. She was able to be weaned off the BiPAP after 3 days and placed on nasal cannula. She had physical therapy and occupational therapy to increase her mobility. Her appetite slowly improved. She has had no further arrhythmias on current medications. Oxygen was attempted to be weaned off. Patient's room air oxygen saturation at rest was 86%. She improved to 95% with oxygen at 2 L/min. case management was consulted for discharge planning. Patient will be discharged with home oxygen and home health services. Physical Exam Vital Signs: Temp Pulse Resp BP Pulse Ox 97.7 F 66 19 117/53 L 91 L 09/27/17 11:15 09/27/17 11:15 09/27/17 11:15 09/27/17 11:15 09/27/17 11:15 Intake & Output 09/26/17 09/27/17 09/28/17 06:59 06:59 06:59 Intake Total 2796 2566 0 Output Total 1050 1700 400 Balance 1746 866 -400 Weight 49.2 kg 48.6 kg General appearance: PRESENT: no acute distress, thin, well-developed, other - cachetic Head exam: PRESENT: atraumatic, normocephalic Eye exam: PRESENT: conjunctiva pink, EOMI, PERRLA. ABSENT: scleral icterus Ear exam: PRESENT: normal external ear exam Mouth exam: PRESENT: moist, tongue midline Neck exam: ABSENT: carotid bruit, JVD, lymphadenopathy, thyromegaly Respiratory exam: PRESENT: decreased breath sounds, symmetrical, unlabored. ABSENT: rales, rhonchi, wheezes Cardiovascular exam: PRESENT: RRR. ABSENT: diastolic murmur, rubs, systolic murmur Pulses: PRESENT: normal dorsalis pedis pul Vascular exam: PRESENT: normal capillary refill GI/Abdominal exam: PRESENT: normal bowel sounds, soft. ABSENT: distended, guarding, mass, organolmegaly, rebound, tenderness Rectal exam: PRESENT: deferred Extremities exam: PRESENT: full ROM. ABSENT: calf tenderness, clubbing, pedal edema Neurological exam: PRESENT: alert, awake, oriented to person, oriented to place , oriented to time, oriented to situation, CN II-XII grossly intact. ABSENT: motor sensory deficit Psychiatric exam: PRESENT: appropriate affect, normal mood. ABSENT: homicidal ideation, suicidal ideation Skin exam: PRESENT: dry, intact, warm. ABSENT: cyanosis, rash Results Laboratory Results: 09/27/17 04:15 09/27/17 04:15 09/27/17 09/27/17 04:15 04:15 WBC 21.9 H RBC 4.78 Hgb 14.6 Hct 44.1 MCV 92 MCH 30.5 MCHC 33.1 RDW 13.8 Plt Count 278 Seg Neutrophils % Not Reportable Lymphocytes % Not Reportable Monocytes % Not Reportable Eosinophils % Not Reportable Basophils % Not Reportable Absolute Neutrophils Not Reportable Absolute Lymphocytes Not Reportable Absolute Monocytes Not Reportable Absolute Eosinophils Not Reportable Absolute Basophils Not Reportable Sodium 136.5 L Potassium 4.0 Chloride 98 Carbon Dioxide 34 H Anion Gap 5 BUN 48 H Creatinine 0.98 Est GFR ( Amer) > 60 Est GFR (Non-Af Amer) 54 L Glucose 102 Calcium 9.2 Magnesium 2.0 Total Bilirubin 0.3 AST 19 ALT 38 Alkaline Phosphatase 57 Total Protein 4.9 L Albumin 2.8 L 09/17/17 09/17/17 09/22/17 17:57 23:45 00:28 Creatine Kinase CK-MB (CK-2) Troponin I 1.080 0.829 NT-Pro-B Natriuret Pep 7810 H 09/22/17 09/22/17 09/22/17 00:28 00:28 06:10 Creatine Kinase 49 41 CK-MB (CK-2) 0.93 Troponin I 0.185 NT-Pro-B Natriuret Pep 09/22/17 09/22/17 09/22/17 06:10 12:04 12:04 Creatine Kinase 38 CK-MB (CK-2) 0.96 0.89 Troponin I 0.158 0.121 NT-Pro-B Natriuret Pep Impressions: Chest X-Ray 09/20/17 00:00 IMPRESSION: Increasing fluid overload or congestive failure superimposed on obstructive disease. Chest CT 09/24/17 00:00 IMPRESSION: Bibasilar airspace disease with trace left pleural effusion. Recommend repeat CT in 4 to 6 weeks without IV contrast, when the patient's condition resolves for evaluation of potential lung mass. End-stage appearance of obstructive lung disease Ectatic distal thoracic aorta At the bottom edge of our chest CT field of view, an abdominal aortic aneurysm is present which was incompletely evaluated. Recommend follow-up abdominal aorta ultrasound for further evaluation Qualifiers - * PATEINT BEING DISCHARGED WITH ANY OF THE FOLLOWING DIAGNOSIS?: No Plan Discharge Plan: Home with home health Time Spent: Less than 30 Minutes
--- NOTE | 2017-10-11 19:42 | Physician Advisory Note ---
Physician Advisor ProgressNote .: Pursuant to the plan for [facility], I have reviewed the medical record for this patient. Physician Advisor Statement: Asked to review [facility] documentation r.e. possible inconsistencies in documentation that need clarification before coding can be done. Please consider documenting, if you agree: 1. "Pneumonia (PNA), suspect gram-___ type, evidenced by fever, chills, SOB, cough, sputum, pleuritic CP, tachypnea, & tachycardia, rhonchi for ICU admission assessment, coarse breath sounds for ED dr, as well as acute infiltrates on CXRs and CT" DCSummary states pneumonia "was ruled out by CT", & that "There were no acute infiltrates". However, CT report supports PNA, all other attending notes document (+) pneumonia; signs & symptoms of PNA above are documented earlier in the chart, and pt's CXR reports also support PNA. - CT 09/24 showed "focal dense consolidation ... atelectasis vs PNA", & Impression read "Bibasilar airspace disease with trace Left pleural effusion... " - Our chief of Radiology, Dr. Truong, tells me that when radiologists say "airspace disease", they mean "infiltrate"; "airspace disease", a term often used by our radiologists, means infiltrate in the airspaces of the lung, as opposed to"interstitial infiltrate", which means infiltrate in the interstitial areas of the lungs. Other radiologic terms that indicate PNA include "consolidation" and "cavitation". - CXR 09/17 showed "areas of density ... concerning for PNA" - CXR 09/18 showed "rehydration vs progressing PNA ..." - CXR 09/19 showed "dense consolidation ... atelectasis vs PNA." - CXR 09/20 showed "superimposed PNA could not be excluded" 2. "Sepsis, present on admission, due to ____ [PNA?], evidenced by acute metabolic encephalopathy (which was due to sepsis, with initial total Earle Coma Score of 14), KEITH (which was also due to sepsis), leukocytosis, HR >100, tachypnea, and MAPs in the 50s-60s, & skin turgor 'sluggish' for ED nursing assessment" - & state whether "septic shock" was present or ruled out. - Based on documented findings above, patient met both Sepsis-2 criteria and Sepsis-3 criteria for the diagnosis of sepsis. - Admitting attending ordered admission for "septic shock" (as the order reason ), & documented concern that pressors may be needed. There was a "sepsis 2nd note" done within 6 hours of admission. - Pt had MAP (mean arterial pressure) ranging only 50s-70s for the entire first day in hospital, not reaching 80 until 09/18 AM. MAP <70 is 1 of the Sepsis-3 criteria for diagnosis of sepsis. - Pt received at least 1L IVF bolus 'wide open' on 09/17 at 21:23, another 500ml on 09/18, 250ml on 09/21 (despite worsening appearance of pulmonary edema on CXRs), 1L on 09/22, & then 75ml/hr from 09/23-. - Pt also received Lasix 20mg po on 09/19 & 09/20, then 20mg IV q12h on 09/20-, 20mg IV on 09/23, and continued 09/24-. - One definition of "septic shock" is "sepsis + low BP (i.e. systolic <90, or MAP 65-70 ...) despite clinically adequate IVF challenge" (which is often defined as 1-2L of IVF). Thanks for your help with clarifying documentation. CK
== END 2017-09-27 16:01 | disposition home health service (06) | DRG 871 ==
LOC: ER 11:24 → UNDOADMIN 15:56 → EH 15:56 → ICU 18:15 → EH 18:15 → 3W 09-18 23:13 → ICU 09-21 23:45 → 3N 09-22 13:11
PROVIDERS: ADMIT Internal Medicine; ATTEND Internal Medicine
PROC: 5A09557 Assistance with Respiratory Ventilation, Greater than 96 Consecutive Hours, Continuous Positive Airway Pressure (ICD-10-PCS; principal; 2017-09-17)
DX: A41.9 Sepsis, unspecified organism (principal); J96.01 Acute respiratory failure with hypoxia; J96.02 Acute respiratory failure with hypercapnia; R65.21 Severe sepsis with septic shock; I21.A1 Myocardial infarction type 2; G93.41 Metabolic encephalopathy; E43 Unspecified severe protein-calorie malnutrition; J18.9 Pneumonia, unspecified organism; N17.9 Acute kidney failure, unspecified; Z68.1 Body mass index [BMI] 19.9 or less, adult; I47.2 Ventricular tachycardia; J44.1 Chronic obstructive pulmonary disease with (acute) exacerbation; I48.91 Unspecified atrial fibrillation; I10 Essential (primary) hypertension; D72.829 Elevated white blood cell count, unspecified; E87.6 Hypokalemia; R74.8 Abnormal levels of other serum enzymes; I49.3 Ventricular premature depolarization; F17.210 Nicotine dependence, cigarettes, uncomplicated; Z82.49 Family history of ischemic heart disease and other diseases of the circulatory system; Z79.51 Long term (current) use of inhaled steroids; Z99.81 Dependence on supplemental oxygen
CPT/HCPCS: 36415; 36600; 71045; 71260; 80048; 80053; 80069; 80202; 81001; 82550; 82553; 82565; 82803; 82962; 83605; 83735; 83880; 84100; 84439; 84443; 84484; 85025; 85027; 85610; 87040; 87086; 87493; 93005; 93010; 93306; 94640; 94660; 96365; 96366; 96367; 96375; 99285; G8978-GP; G8979-GP; J0456; J0696; J1160; J1720; J1940; J1956; J2543; J2920; J3370; J3475; J3480; J3490; J7030; J7040; J7512; J7620

== ENCOUNTER → 2018-08-28 | Outpatient (CLI) | payer MEDICARE ==
[2018-08-28 10:48] LABS: CHOLESTEROL 221.34 mg/dL (0-200); TRIGLYCERIDES 47 mg/dL (<150)
[2018-08-28 10:58] LABS: DIRECT LDL 112 mg/dL (<100)
== END ==
LOC: LAB 09:51
PROVIDERS: ATTEND Physician Assistant Surgical
DX: I65.29 Occlusion and stenosis of unspecified carotid artery (principal)
CPT/HCPCS: 36415; 80061

== ENCOUNTER 2018-11-21 11:32 | Emergency (ER) | payer MEDICARE ==
[2018-11-21] MEDS ORDERED: IPRATROPIUM/ALBUTEROL 0.5-2.5 MG/3 ML AMPUL NEB ONE ×2 (12:14→18:00)
[2018-11-21] MEDS ORDERED: METHYLPREDNISOLONE INJ 125 MG/2 ML SDV IV ONE ×2 (12:14→18:00)
[2018-11-21] MEDS ORDERED: MAGNESIUM SULFATE/D5W 1 GM/100 ML RTUPB IV ONE ×4 (12:15→17:45)
--- NOTE | 2018-11-21 12:17 | ER Document Report ---
ED Medical Screen (RME) - General Chief Complaint: Cough Stated Complaint: COUGH,CONGESTION,SHORT OF BREATH Time Seen by Provider: 11/21/18 12:11 Primary Care Provider: EMMANUEL ASTORGA PA [Primary Care Provider] - Follow up as needed TRAVEL OUTSIDE OF THE [place] IN LAST 30 DAYS: No - HPI Notes: 11/21/18 12:16 Patient is an 83-year-old female with a history of COPD and hypertension who presents complaining of chest tightness, shortness of breath, dyspnea on exertion worsened from her normal with associated nasal congestion discharge, productive cough over the past 4 days. She is eating and drinking without difficulty. She is urinating normally. Denies drug allergies. She is not on any blood thinning medications that she is aware of. Denies BOND, fever, neck pain, URI, Abd pain, dysuria, back pain, or rash. I have treated and performed a rapid initial assessment of this patient. A comprehensive ED assessment and evaluation of the patient, analysis of test results and completion of medical decision making process will be conducted by additional ED providers. PHYSICAL EXAMINATION: GENERAL: Well-appearing, well-nourished and in no acute distress. A&Ox4. Answers questions appropriately. LUNGS: Diminished bilaterally with mild wheezing noted. No retractions. HEART: Regular rate and rhythm without murmurs, rubs, gallops. Extremities: No cyanosis, clubbing, or edema b/l. NEUROLOGICAL: Normal speech, normal gait. PSYCH: Normal mood, normal affect. - Related Data Allergies/Adverse Reactions: No Known Allergies Allergy (Verified 11/21/18 11:39) Past Medical History - Social History Chew tobacco use (# tins/day): No Frequency of alcohol use: None Drug Abuse: None - Past Medical History Cardiac Medical History: Reports: Hx Atrial Fibrillation, Hx Hypertension Denies: Hx Congestive Heart Failure, Hx Hypercholesterolemia Pulmonary Medical History: Reports: Hx COPD Denies: Hx Intubation Endocrine Medical History: Denies: Hx Diabetes Mellitus Type 1, Hx Diabetes Mellitus Type 2 Renal/ Medical History: Denies: Hx Peritoneal Dialysis GI Medical History: Denies: Hx Cirrhosis - Immunizations History of Influenza Vaccine for 03/2017 - 08/2017 Season: Yes Influenza Administration Date for 03/2017 - 08/2017 Season: 03/24/17 Physical Exam - Vital signs Vitals: Temp Pulse Resp BP Pulse Ox 97.8 F 68 16 111/56 L 97 11/21/18 11:40 11/21/18 11:40 11/21/18 11:40 11/21/18 11:40 11/21/18 11:40 Course - Vital Signs Vital signs: Temp Pulse Resp BP Pulse Ox 97.8 F 68 16 111/56 L 97 11/21/18 11:40 11/21/18 11:40 11/21/18 11:40 11/21/18 11:40 11/21/18 11:40 Doctor's Discharge - Discharge Referrals: EMMANUEL ASTORGA PA [Primary Care Provider] - Follow up as needed
[2018-11-21 12:39] LABS: ABSOLUTE BASOPHILS # (AUTO) 0.1 10^3/uL (0.0-0.2); ABSOLUTE EOSINOPHILS # (AUTO) 0.2 10^3/uL (0.0-0.6); ABSOLUTE LYMPHOCYTES (AUTO) 1.5 10^3/uL (0.5-4.7); ABSOLUTE MONOCYTES (AUTO) 0.7 10^3/uL (0.1-1.4); ABSOLUTE NEUT (AUTO) 7.8 10^3/uL (1.7-8.2); BASOPHILS % (AUTO) 0.8 % (0-2); HEMATOCRIT 43.7 % (36.0-47.0); HEMOGLOBIN 14.6 g/dL (12.0-15.5); LYMPHOCYTES % (AUTO) 14.2 % (13-45); MEAN CORPUSCULAR HEMOGLOBIN 31.7 pg (27.0-33.4); MEAN CORPUSCULAR HGB CONC 33.4 g/dL (32.0-36.0); MEAN CORPUSCULAR VOLUME 95 fl (80-97); MONOCYTES % (AUTO) 6.9 % (3-13); PLATELET COUNT 261 10^3/uL (150-450); RED CELL DISTRIBUTION WIDTH 14.6 % (11.5-14.0); SEGMENTED NEUTROPHILS % (AUTO) 76.1 % (42-78); TOTAL CELLS COUNTED % (AUTO) 100 %; WHITE BLOOD COUNT 10.3 10^3/uL (4.0-10.5)
[2018-11-21 12:41] LABS: VENOUS BLOOD BASE EXCESS 5.2 mmol/L; VENOUS BLOOD HCO3 33.3 mmol/L (20-32); VENOUS BLOOD PCO2 63.6 mmHg (35-63); VENOUS BLOOD PH 7.34 (7.30-7.42)
[2018-11-21 13:08] LABS: CALCIUM 10.2 mg/dL (8.4-10.2)
[2018-11-21 13:09] LABS: ALANINE AMINOTRANSFERASE 20 U/L (9-52); ALBUMIN 4.1 g/dL (3.5-5.0); ALKALINE PHOSPHATASE 96 U/L (38-126); ANION GAP 11 (5-19); ASPARTATE AMINO TRANSFERASE 17 U/L (14-36); BILIRUBIN,DIRECT 0.3 mg/dL (0.0-0.4); BILIRUBIN,TOTAL 0.6 mg/dL (0.2-1.3); BLOOD UREA NITROGEN 48 mg/dL (7-20); CARBON DIOXIDE 31 mmol/L (22-30); CHLORIDE 97 mmol/L (98-107); GLUCOSE 119 mg/dL (75-110); POTASSIUM 4.6 mmol/L (3.6-5.0); SODIUM 138.8 mmol/L (137-145); TOTAL PROTEIN 6.6 g/dL (6.3-8.2)
[2018-11-21 13:17] LABS: NT PRO BNP 810 pg/mL (<450); TROPONIN I < 0.012 ng/mL
--- NOTE | 2018-11-21 13:22 | RADIOLOGY REPORT (SQ) ---
EXAM DESCRIPTION: CHEST SINGLE VIEW COMPLETED DATE/TIME: 11/21/2018 12:50 pm REASON FOR STUDY: SOB, cough COMPARISON: 09/20/2017 NUMBER OF VIEWS: One view. TECHNIQUE: Single frontal radiographic view of the chest acquired. LIMITATIONS: None. FINDINGS: LUNGS AND PLEURA: No opacities, masses or pneumothorax. No pleural effusion. Attenuated bl ood vessels and flattened jose l-diaphragms. MEDIASTINUM AND HILAR STRUCTURES: No masses. Contour normal. HEART AND VASCULAR STRUCTURES: Heart normal in size. Normal vasculature. BONES: No acute findings. HARDWARE: None in the chest. OTHER: No other significant finding. IMPRESSION: COPD. NO ACUTE RADIOGRAPHIC FINDING IN THE CHEST. TECHNICAL DOCUMENTATION: JOB ID: [id number] [employer]- All Rights Reserved Reading location - IP/workstation name: [email or web address]
[2018-11-21] MEDS ORDERED: MAGNESIUM SULFATE 1 GM in D5W 100 ML IV ONE (17:45)
[2018-11-21] MEDS ORDERED: NORMAL SALINE 250 ML IV ONE (18:35)
--- NOTE | 2018-11-21 19:22 | ER Document Report ---
ED General - General Chief Complaint: Cough Stated Complaint: COUGH,CONGESTION,SHORT OF BREATH Time Seen by Provider: 11/21/18 12:11 Primary Care Provider: EMMANUEL ASTORGA PA [PHYSICIAN DISPLAY ASSOCIATE] - Follow up in 3-5 days Notes: Patient is a 83-year-old female COPD that presents to the emergency department for chief complaint of cough and shortness of breath. Patient states she is been having productive cough, shortness of breath since Saturday, got progressively worse, she is had some chest congestion, postnasal drip as well. She has been using her albuterol inhaler as much as she supposed to, she is also on a long-acting beta agonist, and inhaled corticosteroid, which she states she has been using. Denies any any fevers, chills, night sweats. Denies any sick contacts that she is aware of. She has no other complaints at this time. Past Medical History: COPD, hypertension, carotid artery stenosis Past Surgical History: Cataract surgery Social History: Admits to smoking cigarettes, denies alcohol or drug use, primary care is Dr. Palmer Family History: Reviewed and noncontributory for presenting illness Allergies: Reviewed, see documented allergy list. REVIEW OF SYSTEMS: Other than noted above, the 12 point review of systems was reviewed with the patient and were negative, all pertinent findings are included in the HPI. PHYSICAL EXAMINATION: Vital signs reviewed, nursing noted reviewed. GENERAL: Elderly female, no acute distress HEAD: Atraumatic, normocephalic. EYES: Eyes appear normal, extraocular movements intact, sclera anicteric, conjunctiva are normal. ENT: nares patent, oropharynx clear without exudates. Moist mucous membranes. NECK: Normal range of motion, supple without lymphadenopathy LUNGS: Diminished lung sounds throughout, but no significant wheezing my exam, n o acute respiratory distress. HEART: Regular rate and rhythm without murmurs ABDOMEN: Soft, nontender, normoactive bowel sounds. No rebound, guarding, or rigidity. No masses appreciated. EXTREMITIES: Nontender, good range of motion, no pitting or edema. NEUROLOGICAL: No focal neurological deficits. Moves all extremities spontaneously Motor and sensory grossly intact on exam. PSYCH: Normal mood, normal affect. SKIN: Warm, Dry, normal turgor, no rashes or lesions noted on exposed skin TRAVEL OUTSIDE OF THE [place] IN LAST 30 DAYS: No - Related Data Allergies/Adverse Reactions: No Known Allergies Allergy (Verified 11/21/18 11:39) Past Medical History - Social History Smoking Status: Current Every Day Smoker Chew tobacco use (# tins/day): No Frequency of alcohol use: None Drug Abuse: None Family History: COPD, Hypertension Patient has suicidal ideation: No Patient has homicidal ideation: No - Past Medical History Cardiac Medical History: Reports: Hx Atrial Fibrillation, Hx Hypertension Denies: Hx Congestive Heart Failure, Hx Hypercholesterolemia Pulmonary Medical History: Reports: Hx COPD Denies: Hx Intubation Endocrine Medical History: Denies: Hx Diabetes Mellitus Type 1, Hx Diabetes Mellitus Type 2 Renal/ Medical History: Denies: Hx Peritoneal Dialysis GI Medical History: Denies: Hx Cirrhosis Physical Exam - Vital signs Vitals: Temp Pulse Resp BP Pulse Ox 97.8 F 68 16 111/56 L 97 11/21/18 11:40 11/21/18 11:40 11/21/18 11:40 11/21/18 11:40 11/21/18 11:40 Course - Re-evaluation Re-evalutation: Patient seen and examined vital signs reviewed. Laboratory data and/or imaging were ordered as appropriate for the patient's presenting symptoms and complaint, with consideration of any critical or life threatening conditions that may be associated with their obtained history and exam as noted above. Patient was treated with DuoNeb breathing treatments and IV steroid, and small amount of IV fluids Results were reviewed when available and demonstrated unremarkable blood work, 2 negative troponins, nonischemic EKG, negative chest x-ray for acute findings The patient was re-evaluated and was stable and improved Evaluation was most consistent with acute exacerbation of COPD, place the patient on prednisone, advised to increase her usage of her albuterol inhaler, and to follow-up with her primary care. Results were discussed with the patient at this point, after careful c onsideration I feel that that patient can be discharged from the emergency department, the patient was educated treatments and reasons to return to the emergency department based on their presumed diagnosis as noted above, they were advised to followup with a primary care physician in 2-3 days. Patient was agreeable to plan of care. *Note is created using voice recognition software and may contain spelling, syntax or grammatical errors. Laboratory 11/21/18 11/21/18 11/21/18 12:30 12:30 12:30 WBC 10.3 RBC 4.60 Hgb 14.6 Hct 43.7 MCV 95 MCH 31.7 MCHC 33.4 RDW 14.6 H Plt Count 261 Seg Neutrophils % 76.1 Lymphocytes % 14.2 Monocytes % 6.9 Eosinophils % 2.0 Basophils % 0.8 Absolute Neutrophils 7.8 Absolute Lymphocytes 1.5 Absolute Monocytes 0.7 Absolute Eosinophils 0.2 Absolute Basophils 0.1 VBG pH VBG pCO2 VBG HCO3 VBG Base Excess Sodium 138.8 Potassium 4.6 Chloride 97 L Carbon Dioxide 31 H Anion Gap 11 BUN 48 H Creatinine 1.51 H Est GFR ( Amer) 40 L Est GFR (Non-Af Amer) 33 L Glucose 119 H Calcium 10.2 Total Bilirubin 0.6 Direct Bilirubin 0.3 Neonat Total Bilirubin Not Reportable Neonat Direct Bilirubin Not Reportable Neonat Indirect Bili Not Reportable AST 17 ALT 20 Alkaline Phosphatase 96 Troponin I < 0.012 NT-Pro-B Natriuret Pep 810 H Total Protein 6.6 Albumin 4.1 11/21/18 11/21/18 12:30 18:00 WBC RBC Hgb Hct MCV MCH MCHC RDW Plt Count Seg Neutrophils % Lymphocytes % Monocytes % Eosinophils % Basophils % Absolute Neutrophils Absolute Lymphocytes Absolute Monocytes Absolute Eosinophils Absolute Basophils VBG pH 7.34 VBG pCO2 63.6 H VBG HCO3 33.3 H VBG Base Excess 5.2 Sodium Potassium Chloride Carbon Dioxide Anion Gap BUN Creatinine Est GFR ( Amer) Est GFR (Non-Af Amer) Glucose Calcium Total Bilirubin Direct Bilirubin Neonat Total Bilirubin Neonat Direct Bilirubin Neonat Indirect Bili AST ALT Alkaline Phosphatase Troponin I < 0.012 NT-Pro-B Natriuret Pep Total Protein Albumin Chest X-Ray 11/21/18 12:14 IMPRESSION: COPD. NO ACUTE RADIOGRAPHIC FINDING IN THE CHEST. - Vital Signs Vital signs: Temp Pulse Resp BP Pulse Ox 97.8 F 68 21 H 137/77 H 95 11/21/18 11:40 11/21/18 11:40 11/21/18 18:00 11/21/18 19:01 11/21/18 19:01 - Laboratory Result Diagrams: 11/21/18 12:30 11/21/18 12:30 Laboratory results interpreted by me: 05/31/19 05/31/19 05/31/19 12:30 12:30 12:30 RDW 14.6 H VBG pCO2 VBG HCO3 Chloride 97 L Carbon Dioxide 31 H BUN 48 H Creatinine 1.51 H Est GFR ( Amer) 40 L Est GFR (Non-Af Amer) 33 L Glucose 119 H NT-Pro-B Natriuret Pep 810 H 11/21/18 12:30 RDW VBG pCO2 63.6 H VBG HCO3 33.3 H Chloride Carbon Dioxide BUN Creatinine Est GFR ( Amer) Est GFR (Non-Af Amer) Glucose NT-Pro-B Natriuret Pep - EKG Interpretation by Me Additional EKG results interpreted by me: EKG demonstrates sinus rhythm with a ventricular rate of 70 bpm, left axis deviation, QTC 420 ms, P waves, consistent with the patient's chronic lung disease. No evidence of acute ischemia. Compared with prior EKG, no significant changes. Discharge - Discharge Clinical Impression: Acute exacerbation of chronic obstructive pulmonary disease (COPD) Condition: Stable Disposition: HOME, SELF-CARE Instructions: Chronic Obstructive Lung Disease ([facility]) Additional Instructions: Please use her albuterol inhaler, 2 puffs at least 3-4 times daily for the next 5 days, then back to every 6 hours as needed. Prescriptions: RX: Prednisone [Deltasone 10 mg Tablet] 40 mg PO DAILY #20 tablet Referrals: EMMANUEL ASTORGA PA [PHYSICIAN DISPLAY ASSOCIATE] - Follow up in 3-5 days
--- NOTE | 2018-11-21 19:28 | EKG REPORT ---
SEVERITY:- ABNORMAL ECG - SINUS RHYTHM BIATRIAL ABNORMALITIES BORDERLINE R WAVE PROGRESSION, ANTERIOR LEADS MINIMAL ST ELEVATION, ANTEROLATERAL LEADS : Confirmed by: Ellen Mcmanus MD 21-Nov-2018 19:27:49
[2018-11-21 19:47] VITALS: BP 137/77
== END 2018-11-21 19:47 | disposition home or self-care (01) ==
LOC: ER 11:32
DX: J44.1 Chronic obstructive pulmonary disease with (acute) exacerbation (principal); R09.89 Other specified symptoms and signs involving the circulatory and respiratory systems; R09.82 Postnasal drip; I10 Essential (primary) hypertension; I25.10 Atherosclerotic heart disease of native coronary artery without angina pectoris; F17.200 Nicotine dependence, unspecified, uncomplicated
CPT/HCPCS: 93005; 94640; 99284; 96374; 36415; 85025; 80053; 84484; 82803; 83880; 71045; 93010; J2930; A9270; J7620

== ENCOUNTER 2019-06-19 13:45 | Emergency (ER) | payer MEDICARE ==
[2019-06-19 14:28] LABS: HEMATOCRIT 44.5 % (36.0-47.0); MEAN CORPUSCULAR HEMOGLOBIN 31.5 pg (27.0-33.4); MEAN CORPUSCULAR HGB CONC 33.7 g/dL (32.0-36.0); MEAN CORPUSCULAR VOLUME 93 fl (80-97); PLATELET COUNT 243 10^3/uL (150-450); RED BLOOD COUNT 4.77 10^6/uL (3.72-5.28); RED CELL DISTRIBUTION WIDTH 14.4 % (11.5-14.0); WHITE BLOOD COUNT 15.8 10^3/uL (4.0-10.5)
[2019-06-19 14:45] LABS: ALBUMIN 4.1 g/dL (3.5-5.0); ALKALINE PHOSPHATASE 99 U/L (38-126); ANION GAP 8 (5-19); ASPARTATE AMINO TRANSFERASE 25 U/L (14-36); BILIRUBIN,DIRECT 0.2 mg/dL (0.0-0.4); BILIRUBIN,TOTAL 0.6 mg/dL (0.2-1.3); BLOOD UREA NITROGEN 29 mg/dL (7-20); CARBON DIOXIDE 36 mmol/L (22-30); CHLORIDE 96 mmol/L (98-107); CREATINE KINASE 32 U/L (30-135); GLUCOSE 115 mg/dL (75-110); POTASSIUM 3.9 mmol/L (3.6-5.0); TOTAL PROTEIN 6.7 g/dL (6.3-8.2)
[2019-06-19 14:55] LABS: ABSOLUTE LYMPHOCYTES# (MANUAL) 1.6 10^3/uL (0.5-4.7); ABSOLUTE MONOCYTES # (MANUAL) 1.4 10^3/uL (0.1-1.4); BASOPHILS % (MANUAL) 0 % (0-2); EOSINOPHILS % (MANUAL) 0 % (0-6); LYMPHOCYTES % (MANUAL) 8 % (13-45); MONOCYTES % (MANUAL) 9 % (3-13); SEGMENTED NEUTROPHILS % (MAN) 81 % (42-78); TOTAL CELLS COUNTED 100
[2019-06-19 14:56] LABS: CREATINE KINASE MB 1.14 ng/mL (<4.55); PLATELET COMMENT ADEQUATE; RBC MORPHOLOGY COMMENT NORMO-CYTIC/CHROMIC; TROPONIN I 0.012 ng/mL
--- NOTE | 2019-06-19 15:05 | RADIOLOGY REPORT (SQ) ---
EXAM DESCRIPTION: CHEST SINGLE VIEW COMPLETED DATE/TIME: 06/19/2019 2:46 pm REASON FOR STUDY: sob COMPARISON: AP view of the chest from 11/21/2018. EXAM PARAMETERS: NUMBER OF VIEWS: One view. TECHNIQUE: An AP view of the chest was obtained. RADIATION DOSE: NA LIMITATIONS: None. FINDINGS: LUNGS AND PLEURA: Asymmetric parenchymal opacity in the left base. There is no sizable pl eural effusion or pneumothorax. MEDIASTINUM AND HILAR STRUCTURES: No mediastinal or hilar contour abnormality. HEART AND VASCULAR STRUCTURES: The cardiac silhouette is enlarged. BONES: Unchanged S-shaped scoliotic curvature of the thoracolumbar spine. HARDWARE: None in the chest. 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 IMPRESSION: Asymmetric parenchymal opacity in the left base. Correlate clinically to exclude a pneu monia. TECHNICAL DOCUMENTATION: JOB ID: [id number] [employer]- All Rights Reserved Reading location - IP/workstation name: [email or web address]
[2019-06-19 15:50] LABS: APPEARANCE,URINE SLIGHTLY-CLOUDY; BILIRUBIN,URINE NEGATIVE (NEGATIVE); COLOR,URINE YELLOW; GLUCOSE, URINE NEGATIVE (NEGATIVE); KETONES,URINE NEGATIVE (NEGATIVE); LEUKOCYTE ESTERASE,URINE SMALL (NEGATIVE); NITRITE,URINE NEGATIVE (NEGATIVE); PROTEIN,URINE 100 mg/dL (NEGATIVE); URINE SPECIFIC GRAVITY 1.027; UROBILINOGEN,URINE NEGATIVE mg/dL (<2.0)
[2019-06-19] MEDS ORDERED: IPRATROPIUM/ALBUTEROL 0.5-2.5 MG/3 ML AMPUL NEB ONE (16:45)
[2019-06-19] MEDS ORDERED: METHYLPREDNISOLONE INJ 125 MG/2 ML SDV IV ONE (16:45)
[2019-06-19] MEDS ORDERED: CEFTRIAXONE INJ 1000 MG VIAL IV ONE (16:45)
--- NOTE | 2019-06-19 16:52 | ER Document Report ---
ED General - General Chief Complaint: Shortness Of Breath Stated Complaint: DIFFICULTY BREATHING/COUGH Time Seen by Provider: 06/19/19 15:11 Primary Care Provider: KELSY FLOR MD [Primary Care Provider] - Follow up as needed TRAVEL OUTSIDE OF THE [place] IN LAST 30 DAYS: No - HPI Notes: Mrs. Solis is an 84-year-old female with longstanding history of oxygen dependent COPD presenting with a chief complaint of cough sputum production and low-grade temperature of 3 days duration. She continues to smoke close to a pack of cigarettes per day. She uses nebulizer treatments at home. She is not recently been on steroids. No vomiting. No hemoptysis. No chest pain. At baseline she uses 2 L of nasal O2. She is been on 3 L of nasal O2 here maintain saturation of 98% and she feels much better with this. She is anxious to be discharged if possible. Notes that she took a flu shot earlier this year. - Related Data Allergies/Adverse Reactions: No Known Allergies Allergy (Verified 11/21/18 11:39) Past Medical History - General Information source: Patient, Relative - Social History Smoking Status: Current Every Day Smoker Smoking Education Provided: Yes Frequency of alcohol use: None Drug Abuse: None Family History: Reviewed & Not Pertinent, COPD, Hypertension Patient has suicidal ideation: No Patient has homicidal ideation: No - Past Medical History Cardiac Medical History: Reports: Hx Atrial Fibrillation, Hx Hypertension Denies: Hx Congestive Heart Failure, Hx Hypercholesterolemia Pulmonary Medical History: Reports: Hx COPD Denies: Hx Intubation Endocrine Medical History: Denies: Hx Diabetes Mellitus Type 1, Hx Diabetes Mellitus Type 2 Renal/ Medical History: Denies: Hx Peritoneal Dialysis GI Medical History: Denies: Hx Cirrhosis Review of Systems - Review of Systems Notes: Constitutional: As per HPI. HENT: Negative for sore throat. Eyes: Negative for visual changes. Cardiovascular: Negative for chest pain. Respiratory: As per HPI. Gastrointestinal: Negative for abdominal pain, vomiting or diarrhea. Genitourinary: Negative for dysuria. Musculoskeletal: Negative for back pain. Skin: Negative for rash. Neurological: Negative for headaches, weakness or numbness. 10 point ROS negative except as marked above and in HPI. Physical Exam - Vital signs Vitals: Resp BP Pulse Ox 25 H 110/66 89 L 06/19/19 13:58 06/19/19 13:58 06/19/19 13:58 - Notes Notes: GENERAL: Elderly somewhat cachectic female in no acute distress. SKIN: Good turgor. Scattered ecchymoses of both forearms. HEAD: Mild bitemporal wasting. Atraumatic. EYES: PERRLA. EOMI. Conjunctivae and sclerae clear. EARS: CANALS AND TMS CLEAR. NOSE: CLEAR. MOUTH: Moist mucosa. Dentures present. No stridor or edema. No drooling. NECK: Supple. No masses or thyromegaly. No adenopathy. Carotids 2+ without bruits. No JVD. BACK: Mild dorsal kyphosis. Symmetrical without tenderness. CHEST: Respirations unlabored. Scattered rhonchi and faint wheezes bilaterally. HEART: Regular rhythm. No murmur gallop or rub. ABDOMEN: Soft nontender without masses, organomegaly or rebound. Bowel sounds normally active. No bruits. GENITALIA: Deferred. EXTREMITIES: 2+ clubbing both upper extremities. No edema. No calf tenderness. Cap refill less than 1.5 seconds. Dorsalis pedis and posterior tibial pulses 3+ and symmetrical. NEUROLOGICAL: GCS 15. Alert and oriented x3. Fluent speech. Cranial nerves II through XII intact. Sensorimotor and cerebellar normal. Normal tone. PSYCHIATRIC: Appropriate affect. Course - Re-evaluation Re-evalutation: 06/19/19 16:52 Patient has an early pneumonia and exacerbation of COPD. She is strongly opposed to admission. I am going to check a flu swab for her and we will go ahead and treat her empirically with Rocephin. She is also received IV Solu- Medrol and additional nebulizer treatment with DuoNeb. We will reevaluate to assure that she is stable enough for outpatient management after these interventions. 06/19/19 20:01 Patient looks and feels much better. Flu swab was negative. She wants to go home and I will discharge her at this time. - Vital Signs Vital signs: Temp Pulse Resp BP Pulse Ox 98.9 F 107 H 31 H 126/59 H 92 06/19/19 14:02 06/19/19 14:02 06/19/19 18:01 06/19/19 18:01 06/19/19 18:01 - Laboratory Result Diagrams: 06/19/19 14:08 06/19/19 14:08 Laboratory results interpreted by me: 06/19/19 06/19/19 06/19/19 14:08 14:08 15:30 WBC 15.8 H RDW 14.4 H Seg Neuts % (Manual) 81 H Lymphocytes % (Manual) 8 L Abs Neuts (Manual) 12.8 H Chloride 96 L Carbon Dioxide 36 H BUN 29 H Est GFR ( Amer) 59 L Est GFR (MDRD) Non-Af 49 L Glucose 115 H Urine Protein 100 H Ur Leukocyte Esterase SMALL H Discharge - Discharge Clinical Impression: COPD exacerbation, Cigarette smoker Pneumonia Qualifiers: Pneumonia type: due to unspecified organism Laterality: left Lung location: lower lobe of lung Qualified Code(s): J18.9 - Pneumonia, unspecified organism Condition: Stable Disposition: HOME, SELF-CARE Additional Instructions: Increase oxygen to 3 L/min at home. Take prescribed medications as instructed. Return here as needed for new or worsening symptoms: Pain that is worsening or unimproved Uncontrolled vomiting High fever or shaking chills Overall worsening Follow-up with your family physician next 3 days. Prescriptions: Azithromycin 250 mg PO ASDIR PRN #6 tablet PRN Reason: Prednisone [Deltasone 20 mg Tablet] 2 tab PO DAILY 5 Days #10 tablet Referrals: KELSY FLOR MD [Primary Care Provider] - Follow up as needed
[2019-06-19 19:27] LABS: A TYPE INFLUENZA AG NEGATIVE (NEGATIVE); B INFLUENZA AG NEGATIVE (NEGATIVE)
--- NOTE | 2019-06-19 19:28 | EKG REPORT ---
SEVERITY:- ABNORMAL ECG - SINUS TACHYCARDIA BIATRIAL ABNORMALITIES PROBABLE INFERIOR INFARCT, OLD BORDERLINE R WAVE PROGRESSION, ANTERIOR LEADS NONSPECIFIC T ABNORMALITIES, ANT-LAT LEADS : Confirmed by: Ellen Mcmanus MD 19-Jun-2019 19:27:31
[2019-06-19 20:23] VITALS: BP 106/55
== END 2019-06-19 20:29 | disposition home or self-care (01) ==
LOC: ER 13:45
DX: J44.0 Chronic obstructive pulmonary disease with (acute) lower respiratory infection (principal); J18.9 Pneumonia, unspecified organism; J44.1 Chronic obstructive pulmonary disease with (acute) exacerbation; R05 Cough; I10 Essential (primary) hypertension; R58 Hemorrhage, not elsewhere classified; M40.209 Unspecified kyphosis, site unspecified; F17.210 Nicotine dependence, cigarettes, uncomplicated; Z99.81 Dependence on supplemental oxygen; Z79.899 Other long term (current) drug therapy
CPT/HCPCS: 93005; 94640; 99285; 96375; 96365; 36415; 82553; 82550; 85025; 80053; 81001; 84484; 87804; 71045; 93010; J2930; J0696; A9270; J7620

== ENCOUNTER 2019-08-07 07:39 | Observation (INO) | payer MEDICARE ==
[2019-08-07 08:48] LABS: HEMATOCRIT 41.4 % (36.0-47.0); HEMOGLOBIN 13.8 g/dL (12.0-15.5); MEAN CORPUSCULAR HEMOGLOBIN 31.4 pg (27.0-33.4); MEAN CORPUSCULAR HGB CONC 33.3 g/dL (32.0-36.0); MEAN CORPUSCULAR VOLUME 94 fl (80-97); PLATELET COUNT 258 10^3/uL (150-450); RED BLOOD COUNT 4.39 10^6/uL (3.72-5.28); RED CELL DISTRIBUTION WIDTH 14.6 % (11.5-14.0); WHITE BLOOD COUNT 12.9 10^3/uL (4.0-10.5)
[2019-08-07 09:07] LABS: ALBUMIN 3.8 g/dL (3.5-5.0); ALKALINE PHOSPHATASE 80 U/L (38-126); ANION GAP 7 (5-19); ASPARTATE AMINO TRANSFERASE 24 U/L (14-36); BILIRUBIN,DIRECT 0.3 mg/dL (0.0-0.4); BILIRUBIN,TOTAL 0.6 mg/dL (0.2-1.3); BLOOD UREA NITROGEN 26 mg/dL (7-20); CALCIUM 9.4 mg/dL (8.4-10.2); CARBON DIOXIDE 36 mmol/L (22-30); CHLORIDE 94 mmol/L (98-107); GLUCOSE 108 mg/dL (75-110); POTASSIUM 4.2 mmol/L (3.6-5.0); TOTAL PROTEIN 6.6 g/dL (6.3-8.2)
--- NOTE | 2019-08-07 09:17 | RADIOLOGY REPORT (SQ) ---
EXAM DESCRIPTION: CHEST SINGLE VIEW COMPLETED DATE/TIME: 08/07/2019 8:57 am REASON FOR STUDY: SOB COMPARISON: AP view of the chest from 06/19/2019 EXAM PARAMETERS: NUMBER OF VIEWS: One view. TECHNIQUE: An AP view of the chest was obtained. RADIATION DOSE: NA LIMITATIONS: None. FINDINGS: LUNGS AND PLEURA: No consolidation, pleural effusion or pneumothorax. MEDIASTINUM AND HILAR STRUCTURES: No mediastinal or hilar contour abnormality. HEART AND VASCULAR STRUCTURES: Stable enlarged cardiac silhouette. BONES: Dextroconvex curvature of the thoracic spine. HARDWARE: None in the chest. OTHER: No other finding. IMPRESSION: No acute cardiopulmonary process. TECHNICAL DOCUMENTATION: JOB ID: [id number] [employer]- All Rights Reserved Reading location - IP/workstation name: [email or web address]
[2019-08-07 09:34] LABS: ABSOLUTE LYMPHOCYTES# (MANUAL) 0.6 10^3/uL (0.5-4.7); ABSOLUTE MONOCYTES # (MANUAL) 0.8 10^3/uL (0.1-1.4); BASOPHILS % (MANUAL) 1 % (0-2); EOSINOPHILS % (MANUAL) 0 % (0-6); LYMPHOCYTES % (MANUAL) 5 % (13-45); MONOCYTES % (MANUAL) 6 % (3-13); SEGMENTED NEUTROPHILS % (MAN) 88 % (42-78); TOTAL CELLS COUNTED 100
[2019-08-07 09:35] LABS: ANISOCYTOSIS SLIGHT; PLATELET COMMENT ADEQUATE
[2019-08-07 11:03] LABS: APPEARANCE,URINE SLIGHTLY-CLOUDY; BILIRUBIN,URINE NEGATIVE (NEGATIVE); COLOR,URINE YELLOW; GLUCOSE, URINE NEGATIVE (NEGATIVE); KETONES,URINE NEGATIVE (NEGATIVE); LEUKOCYTE ESTERASE,URINE NEGATIVE (NEGATIVE); NITRITE,URINE NEGATIVE (NEGATIVE); PROTEIN,URINE 100 mg/dL (NEGATIVE); URINE SPECIFIC GRAVITY 1.021; UROBILINOGEN,URINE NEGATIVE mg/dL (<2.0)
[2019-08-07] MEDS ORDERED: NORMAL SALINE 250 ML IV ONE (11:52)
[2019-08-07] MEDS ORDERED: DILTIAZEM HCL INJ 25 MG/5 ML VIAL IV ONE (11:52)
--- NOTE | 2019-08-07 11:58 | ER Document Report ---
ED General - General Chief Complaint: Shortness Of Breath Stated Complaint: COUGH Time Seen by Provider: 08/07/19 11:40 Primary Care Provider: KELSY FLOR MD [Primary Care Provider] - Follow up as needed Mode of Arrival: Ambulatory Information source: Patient, Parent Notes: 84-year-old female arrives by POV with her daughter with 4-day history of influenza symptoms and coughing white to green type phlegm of copious amounts with myalgias and tachycardia. Patient is on Cardizem and also losartan. Patient has tachycardia between 1 10-1 60 at this time chest x-ray is normal patient has a 12.8 white blood cell count with 88% segs. Also patient's O2 was completely out and her breathing treatments were not helping her at home. TRAVEL OUTSIDE OF THE [place] IN LAST 30 DAYS: No - HPI Onset: This morning Onset/Duration: Sudden Quality of pain: No pain Severity: Mild Pain Level: 1 Associated symptoms: Body/muscle aches, Productive cough, Shortness of breath, Weakness Exacerbated by: Movement, Walking, Coughing Relieved by: Other - 02 Similar symptoms previously: Yes Recently seen / treated by doctor: Yes - G[facility] - Related Data Allergies/Adverse Reactions: No Known Allergies Allergy (Verified 08/07/19 07:48) Past Medical History - General Information source: Patient, Parent - Patient with daughter who also has URI symptoms for 1 week with her and grandchildren - Social History Smoking Status: Current Every Day Smoker Cigarette use (# per day): Yes Chew tobacco use (# tins/day): No Smoking Education Provided: Yes Frequency of alcohol use: None Drug Abuse: None Lives with: Family Family History: Reviewed & Not Pertinent, COPD, Hypertension Patient has suicidal ideation: No Patient has homicidal ideation: No - Past Medical History Cardiac Medical History: Reports: Hx Atrial Fibrillation, Hx Hypertension Denies: Hx Congestive Heart Failure, Hx Hypercholesterolemia Pulmonary Medical History: Reports: Hx COPD Denies: Hx Intubation Endocrine Medical History: Denies: Hx Diabetes Mellitus Type 1, Hx Diabetes Mellitus Type 2 Renal/ Medical History: Denies: Hx Peritoneal Dialysis GI Medical History: Denies: Hx Cirrhosis Review of Systems - Review of Systems Constitutional: See HPI, Fever, Malaise, Weakness EENT: Eye pain - Does take eyedrops Lumigan for eye problems, Nose congestion Cardiovascular: See HPI, Palpitations, Orthopnea, Dyspnea Respiratory: See HPI, Cough, Short of breath Gastrointestinal: No symptoms reported Genitourinary: No symptoms reported Female Genitourinary: No symptoms reported Musculoskeletal: No symptoms reported Skin: No symptoms reported Hematologic/Lymphatic: No symptoms reported Neurological/Psychological: No symptoms reported Physical Exam - Vital signs Vitals: Temp Pulse Resp BP Pulse Ox 97.2 F 114 H 24 H 117/76 86 L 08/07/19 07:45 08/07/19 07:45 08/07/19 07:45 08/07/19 07:45 08/07/19 07:45 Interpretation: Tachycardic - General General appearance: Alert In distress: Mild - HEENT Head: Normocephalic Eyes: Normal Conjunctiva: Normal Cornea: Normal Extraocular movements intact: Yes Eyelashes: Normal Pupils: PERRL Sinus: Normal Nasal: Normal Mouth/Lips: Normal Pharynx: Normal Neck: Normal - Respiratory Respiratory status: No respiratory distress, Other - Sentences full Chest status: Nontender Breath sounds: Decreased air movement, Productive cough Chest palpation: Normal - Cardiovascular Rhythm: Irregularly irregular, Tachycardia Murmur: Yes - Holosystolic Friction rub: No Jane's crunch: No - Abdominal Inspection: Normal Distension: No distension Bowel sounds: Normal Tenderness: Nontender - Back Back: Normal - Extremities General upper extremity: Normal inspection General lower extremity: Normal inspection - Neurological Neuro grossly intact: Yes Cognition: Normal Orientation: AAOx4 [place] Coma Scale Eye Opening: Spontaneous [place] Coma Scale Verbal: Oriented Earle Coma Scale Motor: Obeys Commands [place] Coma Scale Total: 15 Speech: Normal Cranial nerves: Normal Cerebellar coordination: Normal Motor strength normal: LUE, RUE, LLE, RLE - Psychological Associated symptoms: Normal affect - Skin Skin Temperature: Warm Skin Moisture: Dry Course - Vital Signs Vital signs: Temp Pulse Resp BP Pulse Ox 97.2 F 114 H 22 H 125/74 95 08/07/19 07:45 08/07/19 07:45 08/07/19 14:01 08/07/19 14:00 08/07/19 14:01 - Laboratory Result Diagrams: 08/07/19 08:27 08/07/19 08:27 Laboratory results interpreted by me: 08/07/19 08/07/19 08/07/19 08:27 08:27 08:27 WBC 12.9 H RDW 14.6 H Seg Neuts % (Manual) 88 H Lymphocytes % (Manual) 5 L Abs Neuts (Manual) 11.4 H Chloride 94 L Carbon Dioxide 36 H BUN 26 H Est GFR (MDRD) Non-Af 58 L Creatine Kinase 23 L Urine Protein 08/07/19 10:30 WBC RDW Seg Neuts % (Manual) Lymphocytes % (Manual) Abs Neuts (Manual) Chloride Carbon Dioxide BUN Est GFR (MDRD) Non-Af Creatine Kinase Urine Protein 100 H - Diagnostic Test Radiology reviewed: Reports reviewed - EKG Interpretation by Me EKG shows normal: Sinus rhythm Rate: Tachycardia Critical Care Note - Critical Care Note Total time excluding time spent on procedures (mins): 90 Comments: Case was discussed with Dr. Amin 1200 hrs. as well as 1415 and he advised Briana to see the patient; she was called around 1415 and she advised to place the patient on telemetry admission patient continued to have some tachypnea at 22 breaths/min; and satting 95% on 3 to 4 L. Discharge - Discharge Clinical Impression: Influenza, COPD (chronic obstructive pulmonary disease) with acute bronchitis AB (asthmatic bronchitis) Qualifiers: Asthma severity: moderate Asthma persistence: persistent Asthma complication type: with acute exacerbation Qualified Code(s): J45.41 - Moderate persistent asthma with (acute) exacerbation COPD (chronic obstructive pulmonary disease) Qualifiers: COPD type: COPD with acute lower respiratory infection Qualified Code(s): J44.0 - Chronic obstructive pulmonary disease with (acute) lower respiratory infection Condition: Good Disposition: ADMITTED INPATIENT Admitting Provider: Stewart (Hospitalist) Angela Antony as SILVER RECOVERY OPERATOR Unit Admitted: Telemetry Additional Instructions: transfer patient to telemetry Referrals: KELSY FLOR MD [Primary Care Provider] - Follow up as needed
[2019-08-07] MEDS ORDERED: LEVOFLOXACIN 750 MG/D5W RTU 750 MG/150 ML RTUPB IV ONE (12:04)
[2019-08-07] MEDS ORDERED: NORMAL SALINE 1000 ML 1,000 ML IV PRN (16:00)
[2019-08-07] MEDS ORDERED: ACETAMINOPHEN 325 MG TABLET PO PRN (16:00)
[2019-08-07] MEDS ORDERED: LEVALBUTEROL HCL NEB 1.25 MG/3 ML AMPUL NEB PRN (16:00)
[2019-08-07] MEDS ORDERED: GUAIFENESIN SYRP 200 MG/10 ML UDC PO PRN (16:05)
--- NOTE | 2019-08-07 17:42 | PDOC H&P ---
History of Present Illness Admission Date/PCP: 08/07/19 14:58 KELSY FLOR MD Patient complains of: Shortness of breath History of Present Illness: TIFFANIE MEIER is a 84 year old female with a past medical history of COPD, hypertension, atrial fibrillation, hyperlipidemia, and tobacco dependence with continuous use who presented to the emergency department today with a complaint of rapidly worsening shortness of breath beginning approximately 3 days ago, w ith nasal congestion, rhinorrhea, productive cough, fatigue, malaise, and palpitations noted this morning. She reports that her daughter and multiple other family members have been diagnosed with the flu. She declines to have influenza testing today. Evaluation in the emergency department revealed atrial fibrillation with a rapid response that became rate controlled with IV fluids and 2.5 mg IV diltiazem. She was initially hypotensive but this is now been corrected as well. She does remain tachypneic and oxygen dependent. At home she utilizes 2 L/min while sleeping only. Further evaluation reveals mild leukocytosis (WBCs 12.9), mild dehydration with a BUN of 26, normal CK, normal troponin, benign urinalysis. Chest x-ray is negative for acute findings. The patient is referred to the hospitalist service for admission and management of the above-stated complaints and findings. Past Medical History Cardiac Medical History: Reports: Atrial Fibrillation, Hyperlipidema, Hypertension Denies: Congestive Heart Failure Pulmonary Medical History: Reports: Chronic Obstructive Pulmonary Disease (COPD) Denies: Intubation EENT Medical History: Reports: None Neurological Medical History: Reports: None Endocrine Medical History: Denies: Diabetes Mellitus Type 1, Diabetes Mellitus Type 2 Renal/ Medical History: Reports: None Malignancy Medical History: Reports: None GI Medical History: Denies: Cirrhosis, Gastroesophageal Reflux Disease Musculoskeltal Medical History: Reports: None Skin Medical History: Reports: None Psychiatric Medical History: Reports: Tobacco Dependency Traumatic Medical History: Reports: None Hematology: Reports: None Infectious Medical History: Reports: None Past Surgical History Past Surgical History: Reports: None Social History Information Source: Parent Lives with: Family Smoking Status: Current Every Day Smoker Cigarettes Packs Per Day: 1 Frequency of Alcohol Use: None Hx Recreational Drug Use: No Drugs: None Hx Prescription Drug Abuse: No - Advance Directive Resuscitation Status: Full Code Family History Family History: Reviewed & Not Pertinent, COPD, Hypertension Parental Family History Reviewed: Yes Children Family History Reviewed: Yes Sibling(s) Family History Reviewed.: Yes Medication/Allergy Home Medications: Bimatoprost [Lumigan] 1 drop OU QHS 09/17/17 Diltiazem HCl [Diltiazem 24Hr ER (Cd)] 180 mg PO DAILY 09/17/17 Olmesartan Medoxomil 20 mg PO DAILY 09/17/17 Umeclidinium Brm/Vilanterol Tr [Anoro Ellipta 62.5-25 Mcg INH] 1 puff IH DAILY 09/17/17 Vit A/Vit C/Vit E/Zinc/Copper [Preservision Areds Softgel] 1 cap PO DAILY 09/17/17 Brimonidine Tartrate/Timolol [Combigan 0.2%-0.5% Eye Drops] 1 drop OU Q12 0 08/07/19 Levalbuterol HCl [Xopenex Neb 0.63 mg/3 ml Ampul] 0.63 mg NEB RTQ8 08/07/19 Rosuvastatin Calcium 10 mg PO QHS 08/07/19 Allergies/Adverse Reactions: No Known Allergies Allergy (Verified 08/07/19 07:48) Review of Systems Constitutional: PRESENT: chills, fatigue, fever(s), headache(s). ABSENT: weight gain, weight loss Eyes: ABSENT: visual disturbances Ears: ABSENT: hearing changes Cardiovascular: PRESENT: dyspnea on exertion, palpitations. ABSENT: chest pain, edema, orthropnea Respiratory: PRESENT: cough, dyspnea, sputum. ABSENT: hemoptysis Gastrointestinal: ABSENT: abdominal pain, constipation, diarrhea, hematemesis, hematochezia, nausea, vomiting Genitourinary: ABSENT: dysuria, hematuria Musculoskeletal: ABSENT: joint swelling Integumentary: ABSENT: rash, wounds Neurological: ABSENT: abnormal gait, abnormal speech, confusion, dizziness, focal weakness, syncope Psychiatric: ABSENT: anxiety, depression, homidical ideation, suicidal ideation Endocrine: ABSENT: cold intolerance, heat intolerance, polydipsia, polyuria Hematologic/Lymphatic: ABSENT: easy bleeding, easy bruising Physical Exam Vital Signs: Temp Pulse Resp BP Pulse Ox 97.2 F 114 H 22 H 140/81 H 95 08/07/19 07:45 08/07/19 07:45 08/07/19 16:30 08/07/19 16:30 08/07/19 16:30 Intake & Output 08/06/19 08/07/19 08/08/19 06:59 06:59 06:59 Intake Total 400 Balance 400 Weight 47.174 kg General appearance: PRESENT: no acute distress, cooperative, thin, well- developed, well-nourished Head exam: PRESENT: atraumatic, normocephalic Eye exam: PRESENT: conjunctiva pink, EOMI, PERRLA. ABSENT: scleral icterus Ear exam: PRESENT: normal external ear exam Mouth exam: PRESENT: moist, tongue midline Neck exam: ABSENT: carotid bruit, JVD, lymphadenopathy, thyromegaly Respiratory exam: PRESENT: rhonchi, symmetrical, tachypnea, wheezes, other - Supplemental oxygen via nasal cannula. ABSENT: rales Cardiovascular exam: PRESENT: irregular rhythm, +S1, +S2, tachycardia. ABSENT: diastolic murmur, rubs, systolic murmur Vascular exam: PRESENT: normal capillary refill Extremities exam: PRESENT: full ROM. ABSENT: calf tenderness, clubbing, pedal edema Musculoskeletal exam: PRESENT: ambulatory Neurological exam: PRESENT: alert, awake, oriented to person, oriented to place, oriented to time, oriented to situation, CN II-XII grossly intact. ABSENT: motor sensory deficit Psychiatric exam: PRESENT: appropriate affect, normal mood. ABSENT: homicidal ideation, suicidal ideation Skin exam: PRESENT: dry, intact, warm. ABSENT: cyanosis, rash Results Laboratory Results: 08/07/19 08:27 08/07/19 08:27 08/07/19 08/07/19 08/07/19 08:27 08:27 10:30 WBC 12.9 H RBC 4.39 Hgb 13.8 Hct 41.4 MCV 94 MCH 31.4 MCHC 33.3 RDW 14.6 H Plt Count 258 Seg Neutrophils % Not Reportable Sodium 137.1 Potassium 4.2 Chloride 94 L Carbon Dioxide 36 H Anion Gap 7 BUN 26 H Creatinine 0.92 Est GFR ( Amer) > 60 Glucose 108 Calcium 9.4 Total Bilirubin 0.6 AST 24 Alkaline Phosphatase 80 Total Protein 6.6 Albumin 3.8 Urine Color YELLOW Urine Appearance SLIGHTLY-CLOUDY Urine pH 5.0 Ur Specific [place] 1.021 Urine Protein 100 H Urine Glucose (UA) NEGATIVE Urine Ketones NEGATIVE Urine Blood NEGATIVE Urine Nitrite NEGATIVE Ur Leukocyte Esterase NEGATIVE Urine WBC (Auto) 7 Urine RBC (Auto) 2 08/07/19 08/07/19 08:27 08:27 Creatine Kinase 23 L Troponin I 0.013 Impressions: Chest X-Ray 08/07/19 08:18 IMPRESSION: No acute cardiopulmonary process. Assessment and Plan - Diagnosis (1) Acute respiratory failure with hypoxia Is this a current diagnosis for this admission?: Yes Plan: Patient is admitted to the medical floor on continuous cardiac telemetry. She is provided supplemental oxygen as needed maintain saturations greater than 89%. We will continue scheduled and as needed nebulizer treatments. We will begin prednisone daily. Mucinex twice daily, Robitussin as needed. Encourage pulmonary toilet with incentive spirometer, flutter valve, and ambulation. (2) COPD (chronic obstructive pulmonary disease) with acute bronchitis Is this a current diagnosis for this admission?: Yes Plan: We will provide Levaquin for treatment of acute bronchitis. Remaining management as above. (3) Influenza Is this a current diagnosis for this admission?: Yes Plan: Outside window for Tamiflu. Supportive care. Remaining management as above. (4) Atrial fibrillation Qualifiers: Atrial fibrillation type: paroxysmal Qualified Code(s): I48.0 - Paroxysmal atrial fibrillation Is this a current diagnosis for this admission?: Yes Plan: Exacerbated by #1-3. Continue maintenance fluids to prevent dehydration. Continue supplemental oxygen as needed to maintain saturations. We will resume home medication regiment once reconciled. Remaining management as above. Monitor on continuous cardiac telemetry. (5) Tobacco dependence Is this a current diagnosis for this admission?: Yes Plan: Smoking cessation encouraged. Nicotine replacement therapies provided. - Time Time Spent with patient: 35 or more minutes Medications reviewed and adjusted accordingly: Yes Anticipated discharge: Home Within: within 48 hours
[2019-08-07] MEDS: IPRATROPIUM/ALBUTEROL 0.5-2.5 MG/3 ML AMPUL NEB SCH ×2 (17:53→23:56)
[2019-08-07] MEDS: PREDNISONE 20 MG TABLET PO SCH (18:18)
--- NOTE | 2019-08-07 20:20 | EKG REPORT ---
SEVERITY:- ABNORMAL ECG - SINUS RHYTHM LEFT ATRIAL ABNORMALITY PROBABLE LEFT VENTRICULAR HYPERTROPHY INFERIOR INFARCT, OLD : Confirmed by: Campbell Robbins MD 07-Aug-2019 20:19:00
[2019-08-07] MEDS ORDERED: BIMATOPROST OU SCH (22:00)
[2019-08-07] MEDS ORDERED: (PENDING PHARMACY ID) (Rosuvastatin Calcium [Rosuvastatin Calcium] 10 MG) PO SCH (22:00)
[2019-08-07] MEDS: GUAIFENESIN 600 MG TABLET.SA PO SCH (22:14)
[2019-08-07] MEDS: FAMOTIDINE 20 MG TABLET PO SCH (22:14)
[2019-08-07] MEDS: ATORVASTATIN CALCIUM 20 MG TABLET PO SCH (22:15)
[2019-08-07] MEDS: LATANOPROST 0.005% OPH SOLN 2.5 ML OU SCH (22:15)
[2019-08-07] MEDS: HEPARIN SOD (PORCINE) 5,000 UNIT/ML 1 ML VIAL SUBCUT SCH ×2 (22:17→22:21)
[2019-08-08 05:36] LABS: HEMATOCRIT 39.7 % (36.0-47.0); HEMOGLOBIN 13.2 g/dL (12.0-15.5); MEAN CORPUSCULAR HEMOGLOBIN 31.5 pg (27.0-33.4); MEAN CORPUSCULAR HGB CONC 33.3 g/dL (32.0-36.0); MEAN CORPUSCULAR VOLUME 95 fl (80-97); PLATELET COUNT 228 10^3/uL (150-450); RED CELL DISTRIBUTION WIDTH 14.7 % (11.5-14.0)
[2019-08-08] MEDS: HEPARIN SOD (PORCINE) 5,000 UNIT/ML 1 ML VIAL SUBCUT SCH ×3 (06:00→22:02)
[2019-08-08 06:04] LABS: ANION GAP 6 (5-19); BLOOD UREA NITROGEN 24 mg/dL (7-20); CALCIUM 8.4 mg/dL (8.4-10.2); CARBON DIOXIDE 30 mmol/L (22-30); CHLORIDE 100 mmol/L (98-107); GLUCOSE 125 mg/dL (75-110); POTASSIUM 4.3 mmol/L (3.6-5.0)
[2019-08-08] MEDS: IPRATROPIUM/ALBUTEROL 0.5-2.5 MG/3 ML AMPUL NEB SCH ×3 (09:49→23:53)
[2019-08-08] MEDS ORDERED: (PENDING PHARMACY ID) (Diltiazem Hcl [Diltiazem 24hr Er (Cd)] 180 MG) PO SCH (10:00)
[2019-08-08] MEDS ORDERED: OLMESARTAN MEDOXOMIL 10 MG PO SCH (10:00)
[2019-08-08] MEDS ORDERED: NICOTINE 21 MG/24 HR PATCH.TD24 TD SCH (10:00)
[2019-08-08] MEDS: LOSARTAN POTASSIUM 25 MG TABLET PO SCH (11:09)
[2019-08-08] MEDS: DILTIAZEM HCL 180 MG CAPSULE.CR PO SCH (11:10)
[2019-08-08] MEDS: GUAIFENESIN 600 MG TABLET.SA PO SCH ×2 (11:11→22:07)
[2019-08-08] MEDS: PREDNISONE 20 MG TABLET PO SCH (11:11)
[2019-08-08] MEDS: BRIMONIDINE TARTRATE 0.2% OPH SOLN 5 ML OD SCH ×2 (11:13→17:41)
[2019-08-08] MEDS: PREDNISOLONE ACETATE 1% OPH SUSP 5 ML OD SCH (11:14)
[2019-08-08] MEDS: TIMOLOL MALEATE 0.5% OPH SOLN 5 ML OD SCH ×2 (11:14→17:42)
[2019-08-08] MEDS: NICOTINE 14 MG/24 HR PATCH.TD24 TD SCH (11:18)
[2019-08-08] MEDS ORDERED: NORMAL SALINE 1000 ML 1,000 ML IV PRN (14:17)
--- NOTE | 2019-08-08 14:22 | PDOC PROGRESS REPORT ---
Subjective Progress Note for:: 08/08/19 Subjective:: TIFFANIE MEIER is a 84 year old female with a past medical history of COPD, hypertension, atrial fibrillation, hyperlipidemia, and tobacco dependence with continuous use who was admitted 08/07/2017 with acute respiratory failure with hypoxia secondary to a COPD exacerbation. Patient was seen on afternoon rounds. She was found sitting up to the recliner, comfortably, on supplemental oxygen at 2 L/min. She does have home O2 but uses it only while sleeping. She did ambulate today on room air and desatted to the mid 70s but while ambulating on oxygen to maintain saturations greater than 92%. She does continue to have shortness of breath with activity and productive cough. She is feeling somewhat better today but does not yet feel ready to go home; lives alone. She denies fever, chills, chest pain, palpitations, orthopnea, abdominal pain, nausea vomiting and diarrhea. She has no questions or concerns. No concerns per nursing. Reason For Visit: PNEUMONIA Physical Exam Vital Signs: Temp Pulse Resp BP Pulse Ox 97.4 F 76 16 128/84 H 95 08/08/19 09:00 08/08/19 09:42 08/08/19 09:42 08/08/19 09:00 08/08/19 09:42 Intake & Output 08/07/19 08/08/19 08/09/19 06:59 06:59 06:59 Intake Total 880 Balance 880 Weight 46.3 kg General appearance: PRESENT: no acute distress, cooperative, well-developed, w ell-nourished Head exam: PRESENT: atraumatic, normocephalic Eye exam: PRESENT: conjunctiva pink, EOMI, PERRLA. ABSENT: scleral icterus Ear exam: PRESENT: normal external ear exam Mouth exam: PRESENT: moist, tongue midline Respiratory exam: PRESENT: rhonchi, symmetrical, unlabored, other - Supplemental oxygen by nasal cannula. ABSENT: rales, wheezes Cardiovascular exam: PRESENT: irregular rhythm, +S1, +S2. ABSENT: diastolic murmur, rubs, systolic murmur Vascular exam: PRESENT: normal capillary refill Extremities exam: PRESENT: full ROM. ABSENT: calf tenderness, clubbing, pedal edema Musculoskeletal exam: PRESENT: ambulatory Neurological exam: PRESENT: alert, awake, oriented to person, oriented to place, oriented to time, oriented to situation, CN II-XII grossly intact. ABSENT: motor sensory deficit Psychiatric exam: PRESENT: appropriate affect, normal mood. ABSENT: homicidal ideation, suicidal ideation Skin exam: PRESENT: dry, intact, warm. ABSENT: cyanosis, rash Results Laboratory Results: 08/08/19 04:54 08/08/19 04:54 08/08/19 08/08/19 04:54 04:54 WBC 9.0 RBC 4.20 Hgb 13.2 Hct 39.7 MCV 95 MCH 31.5 MCHC 33.3 RDW 14.7 H Plt Count 228 Sodium 135.5 L Potassium 4.3 Chloride 100 Carbon Dioxide 30 Anion Gap 6 BUN 24 H Creatinine 0.73 Est GFR ( Amer) > 60 Glucose 125 H Calcium 8.4 08/07/19 08/07/19 08:27 08:27 Creatine Kinase 23 L Troponin I 0.013 Impressions: Chest X-Ray 08/07/19 08:18 IMPRESSION: No acute cardiopulmonary process. Assessment and Plan - Diagnosis (1) Acute respiratory failure with hypoxia Is this a current diagnosis for this admission?: Yes Plan: Improved; now maintaining oxygen saturations while ambulatory on supplemental oxygen. Patient is admitted to the medical floor on continuous cardiac telemetry. She is provided supplemental oxygen as needed maintain saturations greater than 89%. Continue scheduled and as needed nebulizer treatments. Continue prednisone daily. Mucinex twice daily, Robitussin as needed. Encourage pulmonary toilet with incentive spirometer, flutter valve, and ambulation. (2) COPD (chronic obstructive pulmonary disease) with acute bronchitis Is this a current diagnosis for this admission?: Yes Plan: We will provide Levaquin for treatment of acute bronchitis. Remaining management as above. (3) Influenza Is this a current diagnosis for this admission?: Yes Plan: Declines testing. Multiple family confirmed positive with recent exposure. Outside window for Tamiflu at time of presentation to ED. Supportive care. Remaining management as above. (4) Atrial fibrillation Qualifiers: Atrial fibrillation type: paroxysmal Qualified Code(s): I48.0 - Paroxysmal atrial fibrillation Is this a current diagnosis for this admission?: Yes Plan: Exacerbated by #1-3. Now rate controlled on home medication regiment. Continue maintenance fluids to prevent dehydration. Continue supplemental oxygen as needed to maintain saturations. Continue home dose diltiazem Monitor on continuous cardiac telemetry. (5) Tobacco dependence Is this a current diagnosis for this admission?: Yes Plan: Smoking cessation encouraged. Nicotine replacement therapies provided. - Time Time Spent with patient: 35 or more minutes Medications reviewed and adjusted accordingly: Yes Anticipated discharge: Home Within: within 24 hours
[2019-08-08] MEDS: ATORVASTATIN CALCIUM 20 MG TABLET PO SCH (22:06)
[2019-08-08] MEDS: LATANOPROST 0.005% OPH SOLN 2.5 ML OU SCH (22:06)
[2019-08-08] MEDS: FAMOTIDINE 20 MG TABLET PO SCH (22:06)
[2019-08-09] MEDS: HEPARIN SOD (PORCINE) 5,000 UNIT/ML 1 ML VIAL SUBCUT SCH (05:29)
[2019-08-09] MEDS: IPRATROPIUM/ALBUTEROL 0.5-2.5 MG/3 ML AMPUL NEB SCH (08:38)
[2019-08-09] MEDS: GUAIFENESIN 600 MG TABLET.SA PO SCH (09:42)
[2019-08-09] MEDS: LOSARTAN POTASSIUM 25 MG TABLET PO SCH (09:42)
[2019-08-09] MEDS: PREDNISONE 20 MG TABLET PO SCH (09:42)
[2019-08-09] MEDS: DILTIAZEM HCL 180 MG CAPSULE.CR PO SCH (09:42)
[2019-08-09] MEDS: LEVOFLOXACIN 750 MG/D5W RTU 750 MG/150 ML RTUPB IV SCH ×2 (09:43→10:21)
[2019-08-09] MEDS: NICOTINE 14 MG/24 HR PATCH.TD24 TD SCH (09:43)
[2019-08-09] MEDS: BRIMONIDINE TARTRATE 0.2% OPH SOLN 5 ML OD SCH (09:45)
[2019-08-09] MEDS: TIMOLOL MALEATE 0.5% OPH SOLN 5 ML OD SCH (09:45)
[2019-08-09] MEDS ORDERED: LEVOFLOXACIN 750 MG TABLET PO ONE (11:00)
[2019-08-09 11:19] VITALS: BP 104/68
[2019-08-09] MEDS: PREDNISOLONE ACETATE 1% OPH SUSP 5 ML OD SCH (11:32)
--- NOTE | 2019-08-09 11:59 | PDOC DISCHARGE SUMMARY ---
Impression - Admit/DC Date/PCP Admission Date/Primary Care Provider: 08/07/19 14:58 KELSY FLOR MD Discharge Date: 08/09/19 - Discharge Diagnosis (1) Acute respiratory failure with hypoxia Is this a current diagnosis for this admission?: Yes (2) COPD (chronic obstructive pulmonary disease) with acute bronchitis Is this a current diagnosis for this admission?: Yes (3) Influenza Is this a current diagnosis for this admission?: Yes (4) Atrial fibrillation Is this a current diagnosis for this admission?: Yes (5) Tobacco dependence Is this a current diagnosis for this admission?: Yes - Additional Information Resuscitation Status: Full Code Discharge Diet: Cardiac Discharge Activity: Activity As Tolerated, Balance Activity w/Rest, Slowly In crease Activity Referrals: KELSY FLOR MD [Primary Care Provider] - (Follow up within 1 week.) Prescriptions: Prednisone [Deltasone 20 mg Tablet] 60 mg PO DAILY #12 tablet Levofloxacin [Levaquin 750 mg Tablet] 750 mg PO Q48H #2 tablet Guaifenesin [Mucinex Sr 600 mg Tablet.sa] 600 mg PO Q12 #14 tablet.sa Nicotine [Nicoderm 14 mg/24 Hr Transdermal Patch] 1 each TD DAILY #30 patch.td24 Levalbuterol HCl [Xopenex Neb 0.63 mg/3 ml Ampul] 0.63 mg NEB RTQ8 #90 Levalbuterol HCl [Xopenex Neb 1.25 mg/3 ml Ampul] 1.25 mg NEB RTQ6HP PRN #60 vial.neb PRN Reason: Home Medications: Bimatoprost [Lumigan] 1 drop OU QHS 09/17/17 Diltiazem HCl [Diltiazem 24Hr ER (Cd)] 180 mg PO DAILY 09/17/17 Olmesartan Medoxomil 10 mg PO DAILY 09/17/17 Vit A/Vit C/Vit E/Zinc/Copper [Preservision Areds Softgel] 1 cap PO DAILY 09/17/17 Albuterol Sulfate [Albuterol Sulfate Hfa] 1 puff IH Q6HP PRN 08/07/19 Brimonidine Tartrate/Timolol [Combigan 0.2%-0.5% Eye Drops] 1 drop OD BID 08/07/19 Budesonide/Formoterol Fumarate [Symbicort HFA 160-4.5 mcg Inhaler 6 gm] 1 puff IH Q12 08/07/19 Prednisolone Acetate [Inflamase 1% Oph Susp 5 ml] 1 drop OD NOON 08/07/19 Rosuvastatin Calcium 10 mg PO QHS 08/07/19 Acetaminophen [Tylenol 325 mg Tablet] 650 mg PO Q4HP PRN tablet 08/09/19 Guaifenesin [Mucinex Sr 600 mg Tablet.sa] 600 mg PO Q12 #14 tablet.sa 08/09/19 Levalbuterol HCl [Xopenex Neb 0.63 mg/3 ml Ampul] 0.63 mg NEB RTQ8 #90 08/09/19 Levalbuterol HCl [Xopenex Neb 1.25 mg/3 ml Ampul] 1.25 mg NEB RTQ6HP PRN #60 vial.neb 08/09/19 Levofloxacin [Levaquin 750 mg Tablet] 750 mg PO Q48H #2 tablet 08/09/19 Nicotine [Nicoderm 14 mg/24 Hr Transdermal Patch] 1 each TD DAILY #30 patch.td24 08/09/19 Prednisone [Deltasone 20 mg Tablet] 60 mg PO DAILY #12 tablet 08/09/19 History of Present Illiness History of Present Illness: TIFFANIE MEIER is a 84 year old female with a past medical history of COPD, hypertension, atrial fibrillation, hyperlipidemia, and tobacco dependence with continuous use who presented to the emergency department today with a complaint of rapidly worsening shortness of breath beginning approximately 3 days ago, with nasal congestion, rhinorrhea, productive cough, fatigue, malaise, and palpitations noted this morning. She reports that her daughter and multiple other family members have been diagnosed with the flu. She declines to have influenza testing today. Evaluation in the emergency department revealed atrial fibrillation with a rapid response that became rate controlled with IV fluids and 2.5 mg IV diltiazem. She was initially hypotensive but this is now been corrected as well. She does remain tachypneic and oxygen dependent. At home she utilizes 2 L/min while sleeping only. Further evaluation reveals mild leukocytosis (WBCs 12.9), mild dehydration with a BUN of 26, normal CK, normal troponin, benign urinalysis. Chest x-ray is negative for acute findings. The patient is referred to the hospitalist service for admission and management of the above-stated complaints and findings. Hospital Course Hospital Course: (1) Acute respiratory failure with hypoxia Resolved; now maintaining oxygen saturations while ambulatory on supplemental oxygen. Home O2 dependent. Patient was admitted to the medical floor on continuous cardiac telemetry. She was provided supplemental oxygen, scheduled and as needed nebulizer treatments, prednisone, Mucinex, and robitussin as needed. Pulmonary toilet was encouraged with incentive spirometer, flutter valve, and ambulation. The patient's symptoms have rapidly improved and she is now stable for discharge to home. (2) COPD (chronic obstructive pulmonary disease) with acute bronchitis Provided Levaquin for treatment of acute bronchitis. Remaining management as above. (3) Influenza Declined testing. Multiple family confirmed positive with recent exposure. Outside window for Tamiflu at time of presentation to ED. Remaining management as above. (4) Atrial fibrillation Exacerbated by #1-3. Now rate controlled on home medication regiment. Continue home dose diltiazem Encouraged p.o. fluids and avoidance of caffeine and nicotine products. (5) Tobacco dependence Smoking cessation encouraged. Nicotine replacement therapies provided. Physical Exam Vital Signs: Temp Pulse Resp BP Pulse Ox 97.4 F 54 L 18 104/68 99 08/09/19 10:58 08/09/19 10:58 08/09/19 10:58 08/09/19 10:58 08/09/19 10:58 Intake & Output 08/08/19 08/09/19 08/10/19 06:59 06:59 06:59 Intake Total 880 2198 Balance 880 2198 Weight 46.3 kg 46.3 kg General appearance: PRESENT: no acute distress, cooperative, thin, well- developed, well-nourished Head exam: PRESENT: atraumatic, normocephalic Eye exam: PRESENT: conjunctiva pink, EOMI, PERRLA. ABSENT: scleral icterus Ear exam: PRESENT: normal external ear exam Mouth exam: PRESENT: moist, tongue midline Respiratory exam: PRESENT: clear to auscultation rian, symmetrical, unlabored, other - Supplemental oxygen via nasal cannula. ABSENT: rales, rhonchi, wheezes Cardiovascular exam: PRESENT: irregular rhythm, +S1, +S2. ABSENT: diastolic murmur, rubs, systolic murmur Vascular exam: PRESENT: normal capillary refill Extremities exam: PRESENT: full ROM. ABSENT: calf tenderness, clubbing, pedal edema Musculoskeletal exam: PRESENT: ambulatory Neurological exam: PRESENT: alert, awake, oriented to person, oriented to place, oriented to time, oriented to situation, CN II-XII grossly intact. ABSENT: motor sensory deficit Psychiatric exam: PRESENT: appropriate affect, normal mood. ABSENT: homicidal ideation, suicidal ideation Skin exam: PRESENT: dry, intact, warm. ABSENT: cyanosis, rash Results Laboratory Results: WBC 9.0 10^3/uL (4.0-10.5) 08/08/19 04:54 RBC 4.20 10^6/uL (3.72-5.28) 08/08/19 04:54 Hgb 13.2 g/dL (12.0-15.5) 08/08/19 04:54 Hct 39.7 % (36.0-47.0) 08/08/19 04:54 MCV 95 fl (80-97) 08/08/19 04:54 MCH 31.5 pg (27.0-33.4) 08/08/19 04:54 MCHC 33.3 g/dL (32.0-36.0) 08/08/19 04:54 RDW 14.7 % (11.5-14.0) H 08/08/19 04:54 Plt Count 228 10^3/uL (150-450) 08/08/19 04:54 Lymph % (Auto) Not Reportable 08/07/19 08:27 [place] % (Auto) Not Reportable 08/07/19 08:27 Eos % (Auto) Not Reportable 08/07/19 08:27 Baso % (Auto) Not Reportable 08/07/19 08:27 Absolute Neuts (auto) Not Reportable 08/07/19 08:27 Absolute Lymphs (auto) Not Reportable 08/07/19 08:27 Absolute Monos (auto) Not Reportable 08/07/19 08:27 Absolute Eos (auto) Not Reportable 08/07/19 08:27 Absolute Basos (auto) Not Reportable 08/07/19 08:27 Total Counted 100 08/07/19 08:27 Seg Neutrophils % Not Reportable 08/07/19 08:27 Seg Neuts % (Manual) 88 % (42-78) H 08/07/19 08:27 Lymphocytes % (Manual) 5 % (13-45) L 08/07/19 08:27 Monocytes % (Manual) 6 % (3-13) 08/07/19 08:27 Eosinophils % (Manual) 0 % (0-6) 08/07/19 08:27 Basophils % (Manual) 1 % (0-2) 08/07/19 08:27 Abs Neuts (Manual) 11.4 10^3/uL (1.7-8.2) H 08/07/19 08:27 Abs Lymphs (Manual) 0.6 10^3/uL (0.5-4.7) 08/07/19 08:27 Abs Monocytes (Manual) 0.8 10^3/uL (0.1-1.4) 08/07/19 08:27 Absolute Eos (Manual) 0.0 10^3/uL (0.0-0.6) 08/07/19 08:27 Abs Basophils (Manual) 0.1 10^3/uL (0.0-0.2) 08/07/19 08:27 Platelet Comment ADEQUATE 08/07/19 08:27 Anisocytosis SLIGHT 08/07/19 08:27 Sodium 135.5 mmol/L (137-145) L 08/08/19 04:54 Potassium 4.3 mmol/L (3.6-5.0) 08/08/19 04:54 Chloride 100 mmol/L (98-107) 08/08/19 04:54 Carbon Dioxide 30 mmol/L (22-30) 08/08/19 04:54 Anion Gap 6 (5-19) 08/08/19 04:54 BUN 24 mg/dL (7-20) H 08/08/19 04:54 Creatinine 0.73 mg/dL (0.52-1.25) 08/08/19 04:54 Est GFR ( Amer) > 60 (>60) 08/08/19 04:54 Est GFR (MDRD) Non-Af > 60 (>60) 08/08/19 04:54 Glucose 125 mg/dL (75-110) H 08/08/19 04:54 Calcium 8.4 mg/dL (8.4-10.2) 08/08/19 04:54 Total Bilirubin 0.6 mg/dL (0.2-1.3) 08/07/19 08:27 Direct Bilirubin 0.3 mg/dL (0.0-0.4) 08/07/19 08:27 Neonat Total Bilirubin Not Reportable 08/07/19 08:27 Neonat Direct Bilirubin Not Reportable 08/07/19 08:27 Neonat Indirect Bili Not Reportable 08/07/19 08:27 AST 24 U/L (14-36) 08/07/19 08: ALT 14 U/L (<35) 08/07/19 08:27 Alkaline Phosphatase 80 U/L (38-126) 08/07/19 08:27 Creatine Kinase 23 U/L (30-135) L 08/07/19 08:27 Troponin I 0.013 ng/mL 08/07/19 08:27 Total Protein 6.6 g/dL (6.3-8.2) 08/07/19 08:27 Albumin 3.8 g/dL (3.5-5.0) 08/07/19 08:27 Urine Color YELLOW 08/07/19 10:30 Urine Appearance SLIGHTLY-CLOUDY 08/07/19 10:30 Urine pH 5.0 (5.0-9.0) 08/07/19 10:30 Ur Specific [place] 1.021 08/07/19 10:30 Urine Protein 100 mg/dL (NEGATIVE) H 08/07/19 10:30 Urine Glucose (UA) NEGATIVE mg/dL (NEGATIVE) 08/07/19 10:30 Urine Ketones NEGATIVE mg/dL (NEGATIVE) 08/07/19 10:30 Urine Blood NEGATIVE (NEGATIVE) 08/07/19 10:30 Urine Nitrite NEGATIVE (NEGATIVE) 08/07/19 10:30 Urine Bilirubin NEGATIVE (NEGATIVE) 08/07/19 10:30 Urine Urobilinogen NEGATIVE mg/dL (<2.0) 08/07/19 10:30 Ur Leukocyte Esterase NEGATIVE (NEGATIVE) 08/07/19 10:30 Urine WBC (Auto) 7 /HPF 08/07/19 10:30 Urine RBC (Auto) 2 /HPF 08/07/19 10:30 Urine Bacteria (Auto) TRACE /HPF 08/07/19 10:30 Squamous Epi Cells Auto 1 /HPF 08/07/19 10:30 Urine Mucus (Auto) RARE /LPF 08/07/19 10:30 Urine Ascorbic Acid NEGATIVE (NEGATIVE) 08/07/19 10:30 08/07/19 08:27 Troponin I 0.013 Impressions: Chest X-Ray 08/07/19 08:18 IMPRESSION: No acute cardiopulmonary process. Plan Plan of Treatment: Patient is discharged home in stable condition to the care of family members. She is instructed to follow-up with her primary care provider within 1 week. She is advised to complete her course of antibiotic and steroid therapy. Drink plenty of water. Take other medications as prescribed. Stop smoking. Avoid known respiratory triggers (dust, pollen, pet dander). Return to the emergency department as needed for concerning symptoms. Time Spent: Greater than 30 Minutes Stroke Is this a Stroke Patient?: No Acute Heart Failure - Is this a Heart Failure Patient?: No
== END 2019-08-09 13:09 | disposition home or self-care (01) ==
LOC: ER 07:39 → INTOOBSV 14:58 → EH 14:58 → 4W 17:43
PROVIDERS: ADMIT Internal Medicine; ATTEND Internal Medicine
DX: J96.01 Acute respiratory failure with hypoxia (principal); J44.0 Chronic obstructive pulmonary disease with (acute) lower respiratory infection; J20.9 Acute bronchitis, unspecified; J11.1 Influenza due to unidentified influenza virus with other respiratory manifestations; I48.0 Paroxysmal atrial fibrillation; J45.41 Moderate persistent asthma with (acute) exacerbation; F17.210 Nicotine dependence, cigarettes, uncomplicated; E78.5 Hyperlipidemia, unspecified; I95.9 Hypotension, unspecified; E86.0 Dehydration; H57.10 Ocular pain, unspecified eye; Z79.899 Other long term (current) drug therapy; Z79.51 Long term (current) use of inhaled steroids; Z99.81 Dependence on supplemental oxygen; Z20.828 Contact with and (suspected) exposure to other viral communicable diseases; Z82.49 Family history of ischemic heart disease and other diseases of the circulatory system; Z60.2 Problems related to living alone
CPT/HCPCS: 93005; 99291; 99292; 96375; 96365; 96366; 36415 ×2; 87205; 82550; 85025; 85027; 80048; 80053; 81001; 84484; 71045; 93010; 94640 ×4; G0378 ×2; A9270 ×23; J3490 ×3; J7030; J7050; J1956; J1644; J7512; J7620

== ENCOUNTER 2019-08-23 02:59 | Inpatient (IN) | payer MEDICARE ==
[2019-08-23 03:57] LABS: HEMATOCRIT 42.8 % (36.0-47.0); HEMOGLOBIN 14.5 g/dL (12.0-15.5); MEAN CORPUSCULAR HEMOGLOBIN 31.9 pg (27.0-33.4); MEAN CORPUSCULAR HGB CONC 33.8 g/dL (32.0-36.0); MEAN CORPUSCULAR VOLUME 94 fl (80-97); PLATELET COUNT 271 10^3/uL (150-450); RED BLOOD COUNT 4.54 10^6/uL (3.72-5.28); RED CELL DISTRIBUTION WIDTH 14.5 % (11.5-14.0); WHITE BLOOD COUNT 22.6 10^3/uL (4.0-10.5)
[2019-08-23 04:07] LABS: ALBUMIN 3.1 g/dL (3.5-5.0); ALKALINE PHOSPHATASE 108 U/L (38-126); ANION GAP 6 (5-19); ASPARTATE AMINO TRANSFERASE 31 U/L (14-36); BILIRUBIN,DIRECT 0.1 mg/dL (0.0-0.4); BILIRUBIN,TOTAL 0.6 mg/dL (0.2-1.3); BLOOD UREA NITROGEN 38 mg/dL (7-20); CALCIUM 8.8 mg/dL (8.4-10.2); CARBON DIOXIDE 35 mmol/L (22-30); CHLORIDE 96 mmol/L (98-107); GLUCOSE 83 mg/dL (75-110); POTASSIUM 4.1 mmol/L (3.6-5.0); TOTAL PROTEIN 5.9 g/dL (6.3-8.2)
[2019-08-23 04:24] LABS: ABSOLUTE LYMPHOCYTES# (MANUAL) 0.9 10^3/uL (0.5-4.7); ABSOLUTE MONOCYTES # (MANUAL) 1.4 10^3/uL (0.1-1.4); BAND NEUTROPHILS % (MANUAL) 4 % (3-5); BASOPHILS % (MANUAL) 0 % (0-2); EOSINOPHILS % (MANUAL) 1 % (0-6); LYMPHOCYTES % (MANUAL) 4 % (13-45); MONOCYTES % (MANUAL) 6 % (3-13); SEGMENTED NEUTROPHILS % (MAN) 85 % (42-78); TOTAL CELLS COUNTED 100
[2019-08-23 04:25] LABS: PLATELET COMMENT ADEQUATE; RBC MORPHOLOGY COMMENT NORMO-CYTIC/CHROMIC
--- NOTE | 2019-08-23 04:34 | RADIOLOGY REPORT (SQ) ---
CLINICAL HISTORY: sob/productive cough COMPARISON: 08/07/2019. TECHNIQUE: XR CHEST 1 VIEW 08/23/2019 3:39 AM WRITER PRODUCER FINDINGS: Cardiac silhouette is normal in size. Lungs are diffusely hyperinflated. There is mild biapical pleural-parenchymal scarring. There is rightward curvature of the thoracic spine. There is no pneumothorax. There are no acute osseous findings. IMPRESSION: Emphysema without pneumonia.
--- NOTE | 2019-08-23 06:42 | ER Document Report ---
ED General - General Chief Complaint: Shortness Of Breath Stated Complaint: WEAKNESS Time Seen by Provider: 08/23/19 06:28 Primary Care Provider: KELSY FLOR MD [Primary Care Provider] - Follow up as needed Mode of Arrival: Medic Information source: Patient, Relative - Daughter Notes: 84-year-old woman presents to the emergency department with shortness of breath. Daughter notes that her O2 sat were in the low 80s as low as 60 and at home she was confused and dyspneic. With nebulizer treatments and home O2 support. She had recent hospitalization and discharge, according to daughter she was supposed to be on a diuretic, however the medication was not at the pharmacy. Daughter notes an increased oxygen demand and worsening dyspnea on exertion. TRAVEL OUTSIDE OF THE [place] IN LAST 30 DAYS: No - Related Data Allergies/Adverse Reactions: No Known Allergies Allergy (Verified 08/07/19 07:48) Past Medical History - Social History Smoking Status: Never Smoker Chew tobacco use (# tins/day): No Frequency of alcohol use: None Drug Abuse: None Family History: Reviewed & Not Pertinent, COPD, Hypertension Patient has suicidal ideation: No Patient has homicidal ideation: No - Past Medical History Cardiac Medical History: Reports: Hx Atrial Fibrillation, Hx Hypercholesterolemia, Hx Hypertension Denies: Hx Congestive Heart Failure Pulmonary Medical History: Reports: Hx COPD Denies: Hx Intubation Endocrine Medical History: Denies: Hx Diabetes Mellitus Type 1, Hx Diabetes Me llitus Type 2 Renal/ Medical History: Denies: Hx Peritoneal Dialysis GI Medical History: Denies: Hx Cirrhosis, Hx Gastroesophageal Reflux Disease Psychiatric Medical History: Denies: Hx Depression - Immunizations Hx Pneumococcal Vaccination: 06/24/14 Review of Systems - Review of Systems Notes: Constitutional: Negative for fever. HENT: Negative for sore throat. Eyes: Negative for visual changes. Cardiovascular: Negative for chest pain. Respiratory:+ shortness of breath + shortness of breath, + VEL[place]ZQUEZ Gastrointestinal: Negative for abdominal pain, vomiting or diarrhea. Genitourinary: Negative for dysuria. Musculoskeletal: Negative for back pain. Skin: Negative for rash. Neurological: Negative for headaches, weakness or numbness. 10 point ROS negative except as marked above and in HPI. Physical Exam - Vital signs Vitals: Pulse Ox 95 08/23/19 03:02 - Notes Notes: PHYSICAL EXAMINATION: Physical Exam: General: Frail elderly 84-year-old woman moderate respiratory distress HEENT: NC/AT, pupils equal round and reactive to light, MM moist,nares clear, oropharynx clear, airway patent Neck: supple, no adenopathy, no masses. Good range of motion Lungs: Increased work to brief, use of accessory muscles of respiration, scattered rhonchi. CVS: Tachycardic rate and rhythm no murmur gallop or rub Abdomen: Soft, active, nontender, no masses, no hepatosplenomegaly Ext: Trace edema left lower extremity, no clubbing or cyanosis. Neuro: Alert and responsive, moving all 4 extremities on command, cranial nerves intact, no focal findings Skin: Intact no open lesions, no rash PSYCH: Normal mood, normal affect. Course - Re-evaluation Re-evalutation: 08/23/19 10:50 Patient presented with hypotension, increased work to breathe, O2 sat in the high to mid 80s, with increased dyspnea on exertion and increased oxygen demand at home. She has chronic COPD/respiratory failure and is on O2 at home. According to the daughter, there is been a steady decline in her function since her hospitalization in early July. WBC count 22,[address] scan which reveals bilateral lower lobe mucus plugging with the associated coarse of decline has prompted the need for hospital evaluation. Question of infection, pulmonary toileting and instruction to family, home physical therapy and lastly antibiotics be appropriate. - Vital Signs Vital signs: Temp Pulse Resp BP Pulse Ox 97.7 F 91 20 146/79 H 98 08/23/19 03:37 08/23/19 03:37 08/23/19 08:01 08/23/19 08:00 08/23/19 08:01 - Laboratory Result Diagrams: 08/23/19 03:15 08/23/19 03:15 Laboratory results interpreted by me: 08/23/19 08/23/19 08/23/19 03:15 03:15 03:15 WBC 22.6 H RDW 14.5 H Seg Neuts % (Manual) 85 H Lymphocytes % (Manual) 4 L Abs Neuts (Manual) 20.1 H Chloride 96 L Carbon Dioxide 35 H BUN 38 H NT-Pro-B Natriuret Pep 1680 H Total Protein 5.9 L Albumin 3.1 L - Diagnostic Test Radiology reviewed: Image reviewed, Reports reviewed - Chest x-ray chronic hronic interstitial changes right greater than left, no obvious infiltrate noted. CTA chest: No pulmonary emboli, bilateral lower lobe mucus plugging. - EKG Interpretation by Mo EKG shows normal: Sinus rhythm Rate: Tachycardia - Rate of 101, biatrial abnormality, Q waves in II,II, and F, likely old inferior ND, borderline QT interval. Discharge - Discharge Clinical Impression: COPD exacerbation, Mucus plugging of bronchi, Hypoxia Leukocytosis Qualifiers: Leukocytosis type: unspecified Qualified Code(s): D72.829 - Elevated white blood cell count, unspecified Condition: Stable Disposition: ADMITTED INPATIENT Admitting Provider: [facility] (Hospitalist) Unit Admitted: Telemetry Referrals: KELSY FLOR MD [Primary Care Provider] - Follow up as needed
--- NOTE | 2019-08-23 09:19 | RADIOLOGY REPORT (SQ) ---
EXAM DESCRIPTION: CTA CHEST COMPLETED DATE/TIME: 08/23/2019 8:42 am REASON FOR STUDY: shortness of breath COMPARISON: 09/24/2017. TECHNIQUE: CT scan of the chest performed using helical scanning technique with dynamic intravenous contrast injection. Images reviewed with lung, soft tissue and bone windows. Reconstructed coronal and sagittal MPR images reviewed. Additional 3 dimensional post-processing performed to develop Maximal Intensity Projection images (ME P). All images stored on PACS. All CT scanners at this facility use dose modulation, iterative reconstruction, and/or weight based d osing when appropriate to reduce radiation dose to as low as reasonably achievable (ALARA). [facility]: Dose Right [facility]: CareDose [facility]: Dose Right [facility]: Teradose 4D [facility]: CABIRI - [facility] CONTRAST TYPE AND DOSE: contrast/concentration: Isovue 350.00 mg/ml; Total Contrast Delivered: 45.0 ml; Total Saline Delivered: 71.0 ml Contrast bolus adequate for pulmonary arteries and aorta. RENAL FUNCTION: BUN 38 creatinine 0.81. RADIATION DOSE: CT Rad equipment meets quality standard of care and radiation dose reduction techniq ues were employed. CTDIvol: 3.3 - 14.3 mGy. DLP: 503 mGy-cm. . LIMITATIONS: None. FINDINGS: LUNGS AND PLEURA: Diffuse emphysematous changes with chronic scarring. Prominent mucous p lugging in the lower lobe bronchi. No masses, infiltrates, or pneumothorax. No pleural effusions or pleural calcifications. AORTA AND GREAT VESSELS: Ectatic aorta. 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 HEART: No pericardial effusion. No significant coronary artery calcifications. PULMONARY ARTERIES: No emboli visualized in the main pulmonary arteries or the segmental branches. HILAR AND MEDIASTINAL STRUCTURES: No identified masses or abnormal nodes. HARDWARE: None in the chest. UPPER ABDOMEN: No significant findings. Limited exam. THYROID AND OTHER SOFT TISSUES: No masses. No adenopathy. BONES: No acute or significant finding. 3D MIPS: Confirm above findings. OTHER: No other significant finding. IMPRESSION: 1. NORMAL CTA OF THE CHEST. NO PULMONARY EMBOLI. 2. MARKED DIFFUSE EMPHYSEMATOUS CHANGES WITH CHRONIC SCARRING. PROMINENT MUCOUS PLUGGING IN THE LOWE R LOBE BRONCHI. 3. ECTATIC THORACIC AORTA. LOWER THORACIC AORTIC ANEURYSM MEASURING 4 CM. COMMENT: Quality ID # [id number]: Final reports with documentation of one or more dose reduction techniques (e.g., Automated exposure control, adjustment of the mA and/or kV according to patient size, use of iterative reconstruction technique) TECHNICAL DOCUMENTATION: JOB ID: [id number] 2010 [employer]- All Rights Reserved Reading location - IP/workstation name: [email or web address]
[2019-08-23] MEDS ORDERED: CEFTRIAXONE INJ 1000 MG VIAL IV ONE (10:32)
[2019-08-23] MEDS ORDERED: IPRATROPIUM/ALBUTEROL 0.5-2.5 MG/3 ML AMPUL NEB ONE (10:35)
[2019-08-23] MEDS ORDERED: CEFTRIAXONE 1 GM/D5W RTU 1 GM/50 ML RTUPB IV ONE (10:43)
--- NOTE | 2019-08-23 11:39 | PDOC H&P ---
History of Present Illness Admission Date/PCP: KELSY FLOR MD Patient complains of: SOB History of Present Illness: TIFFANIE MEIER is a 84 year old female with a past medical history of COPD on 2 L of home O2, hypertension, history of paroxysmal atrial fibrillation not on anticoagulation per her previous transfill technician's recommendation and hyperlipidemia who was brought in due to increasing shortness of breath. Patient was recently admitted for COPD exacerbation more than 2 weeks ago. Her daughter reports that she was at her baseline shortness of breath since discharge until the past 2 to 3 days, which she started having increasingly productive cough and shortness of breath. This was also associated with wheezing. Daughter reports that last night, patient desaturated to the 60s while on 2 L of home O2. Patient had transient confusion during the hypoxic episode and almost passed out. Daughter reports that she increased her O2 to 4 L at home but she was still saturating in the 80s. Patient also had audible wheezes at home. Denies fever or chills. In the ER, she was noted to be hypoxic in the 70s, slightly hypotensive and was also tachycardic and she was placed initially on BiPAP and was given breathing treatments. She did improve and was weaned down to a nasal cannula. A CTA was done and PE was ruled out but did show severe emphysema and prominent mucus plugging in the left lower bronchus. On encounter, patient appears comfortable on nasal cannula. She says she feels better. Currently in sinus rhythm at 105. Blood pressures have improved to 130/80s. Past Medical History Cardiac Medical History: Reports: Atrial Fibrillation, Hyperlipidema, Hypertension Denies: Congestive Heart Failure Pulmonary Medical History: Reports: Chronic Obstructive Pulmonary Disease (COPD) Denies: Intubation Endocrine Medical History: Denies: Diabetes Mellitus Type 1, Diabetes Mellitus Type 2 GI Medical History: Denies: Cirrhosis, Gastroesophageal Reflux Disease Psychiatric Medical History: Denies: Depression Social History Smoking Status: Never Smoker Electronic Cigarette use?: No Frequency of Alcohol Use: None Hx Recreational Drug Use: No Drugs: None Hx Prescription Drug Abuse: No Family History Family History: Reviewed & Not Pertinent, COPD, Hypertension Parental Family History Reviewed: Yes - No premature CAD Children Family History Reviewed: No Sibling(s) Family History Reviewed.: No Medication/Allergy Home Medications: Bimatoprost [Lumigan] 1 drop OU QHS 09/17/17 Diltiazem HCl [Diltiazem 24Hr ER (Cd)] 180 mg PO DAILY 09/17/17 Vit A/Vit C/Vit E/Zinc/Copper [Preservision Areds Softgel] 1 cap PO DAILY 09/17/17 Albuterol Sulfate [Albuterol Sulfate Hfa] 1 puff IH Q6HP PRN 08/07/19 Brimonidine Tartrate/Timolol [Combigan 0.2%-0.5% Eye Drops] 1 drop OD BID 08/07/19 Budesonide/Formoterol Fumarate [Symbicort HFA 160-4.5 mcg Inhaler 6 gm] 1 puff IH Q12 08/07/19 Prednisolone Acetate [Inflamase 1% Oph Susp 5 ml] 1 drop OD NOON 08/07/19 Rosuvastatin Calcium 10 mg PO QHS 08/07/19 Guaifenesin [Mucinex Sr 600 mg Tablet.sa] 600 mg PO Q12 #14 tablet.sa 08/09/19 Levalbuterol HCl [Xopenex Neb 0.63 mg/3 ml Ampul] 0.63 mg NEB RTQ8 #90 08/09/19 Levalbuterol HCl [Xopenex Neb 1.25 mg/3 ml Ampul] 1.25 mg NEB RTQ6HP PRN #60 vial.neb 08/09/19 Levofloxacin [Levaquin 750 mg Tablet] 750 mg PO Q48H #2 tablet 08/09/19 Nicotine [Nicoderm 14 mg/24 Hr Transdermal Patch] 1 each TD DAILY #30 patch.td24 08/09/19 Prednisone [Deltasone 20 mg Tablet] 60 mg PO DAILY #12 tablet 08/09/19 Olmesartan Medoxomil [Benicar] 5 mg PO DAILY 08/23/19 Allergies/Adverse Reactions: No Known Allergies Allergy (Verified 08/07/19 07:48) Review of Systems All systems: reviewed and no additional remarkable complaints except as stated - As mentioned in HPI Physical Exam Vital Signs: Temp Pulse Resp BP Pulse Ox 97.7 F 91 20 146/79 H 98 08/23/19 03:37 08/23/19 03:37 08/23/19 08:01 08/23/19 08:00 08/23/19 08:01 Intake & Output 08/22/19 08/23/19 08/24/19 06:59 06:59 06:59 Weight 102 lb General appearance: PRESENT: no acute distress, thin Head exam: PRESENT: atraumatic, normocephalic Eye exam: PRESENT: conjunctiva pink, EOMI, PERRLA. ABSENT: scleral icterus Ear exam: PRESENT: normal external ear exam Mouth exam: PRESENT: moist, tongue midline Neck exam: ABSENT: carotid bruit, JVD, lymphadenopathy, thyromegaly Respiratory exam: PRESENT: rales, rhonchi, wheezes Pulses: PRESENT: normal dorsalis pedis pul GI/Abdominal exam: PRESENT: normal bowel sounds, soft. ABSENT: distended, guarding, mass, organolmegaly, rebound, tenderness Rectal exam: PRESENT: deferred Neurological exam: PRESENT: alert, awake, oriented to person, oriented to place, oriented to time, oriented to situation, CN II-XII grossly intact. ABSENT: motor sensory deficit Results Laboratory Results: 08/23/19 03:15 08/23/19 03:15 08/23/19 08/23/19 08/23/19 03:15 03:15 03:15 WBC 22.6 H RBC 4.54 Hgb 14.5 Hct 42.8 MCV 94 MCH 31.9 MCHC 33.8 RDW 14.5 H Plt Count 271 Seg Neutrophils % Not Reportable Sodium 137.0 Potassium 4.1 Chloride 96 L Carbon Dioxide 35 H Anion Gap 6 BUN 38 H Creatinine 0.81 Est GFR ( Amer) > 60 Glucose 83 Lactic Acid 1.7 Calcium 8.8 Total Bilirubin 0.6 AST 31 Alkaline Phosphatase 108 Total Protein 5.9 L Albumin 3.1 L 08/23/19 08/23/19 03:15 03:15 Troponin I 0.014 NT-Pro-B Natriuret Pep 1680 H Impressions: Chest X-Ray 08/23/19 03:39 IMPRESSION: Emphysema without pneumonia. Chest/Abdomen CTA 08/23/19 07:33 IMPRESSION: 1. NORMAL CTA OF THE CHEST. NO PULMONARY EMBOLI. 2. MARKED DIFFUSE EMPHYSEMATOUS CHANGES WITH CHRONIC SCARRING. PROMINENT MUCOUS PLUGGING IN THE LOWER LOBE BRONCHI. 3. ECTATIC THORACIC AORTA. LOWER THORACIC AORTIC ANEURYSM MEASURING 4 CM. Assessment and Plan - Diagnosis (1) Acute respiratory failure with hypoxia Is this a current diagnosis for this admission?: Yes Plan: Secondary to COPD exacerbation and mucous plugging. Saturating well on nasal cannula. (2) COPD exacerbation Is this a current diagnosis for this admission?: Yes Plan: Start patient on IV steroids and scheduled breathing treatments. Aggressive pulmonary toilet and Mucomyst nebulization, breathing treatments and CPT. Sputum culture ordered. (3) Mucus plugging of bronchi Is this a current diagnosis for this admission?: Yes Plan: As per #2. (4) Hypertension Qualifiers: Hypertension type: essential hypertension Qualified Code(s): I10 - Essential (primary) hypertension Is this a current diagnosis for this admission?: Yes Plan: Resume home meds once verified. (5) Severe protein-calorie malnutrition Is this a current diagnosis for this admission?: Yes Plan: We will consult dietitian. - Time Time Spent with patient: 25-34 minutes
--- NOTE | 2019-08-23 11:40 | ADVANCED CARE ---
- Diagnosis (1) Acute respiratory failure with hypoxia Diagnosis Current: Yes (2) COPD exacerbation Diagnosis Current: Yes (3) Mucus plugging of bronchi Diagnosis Current: Yes (4) Hypertension Diagnosis Current: Yes Resuscitation Status: Do Not Resuscitate Discussion: Discussed with patient with daughter/POAKandi on the bedside. She says that she is a DNI/DNI and does not want any chest compressions, defibrillation or mechanical ventilation if the need arises. She says that her daughterKandi is her surrogate medical decision maker.
[2019-08-23 12:13] LABS: A TYPE INFLUENZA AG NEGATIVE (NEGATIVE); B INFLUENZA AG NEGATIVE (NEGATIVE)
[2019-08-23] MEDS: LEVOFLOXACIN 500 MG/D5W RTU 500 MG/100 ML RTUPB IV SCH (13:57)
[2019-08-23] MEDS: HEPARIN SOD (PORCINE) 5,000 UNIT/ML 1 ML VIAL SUBCUT SCH ×2 (13:57→21:49)
[2019-08-23] MEDS: IPRATROPIUM/ALBUTEROL 0.5-2.5 MG/3 ML AMPUL NEB SCH ×2 (14:17→19:54)
--- NOTE | 2019-08-23 16:19 | EKG REPORT ---
SEVERITY:- ABNORMAL ECG - SINUS TACHYCARDIA BIATRIAL ABNORMALITIES INFERIOR INFARCT, OLD BORDERLINE PROLONGED QT INTERVAL : Confirmed by: Ellen Mcmanus MD 23-Aug-2019 16:18:06
[2019-08-23] MEDS ORDERED: (PENDING PHARMACY ID) (Diltiazem Hcl [Diltiazem 24hr Er (Cd)] 180 MG) PO SCH (16:45)
[2019-08-23] MEDS ORDERED: DILTIAZEM HCL 180 MG CAPSULE.CR PO ONE (18:00)
[2019-08-23] MEDS ORDERED: ACETYLCYSTEINE 20% SOLN 800 MG/4 ML VIAL.NEB NEB SCH (18:00)
[2019-08-23] MEDS: ACETYLCYSTEINE 20% SOLN 800 MG/4 ML VIAL.NEB NEB SCH (19:54)
[2019-08-23] MEDS: METHYLPREDNISOLONE INJ 40 MG/1 ML SDV IV SCH (21:48)
[2019-08-23] MEDS: ATORVASTATIN CALCIUM 20 MG TABLET PO SCH (21:48)
[2019-08-23] MEDS: LATANOPROST 0.005% OPH SOLN 2.5 ML OU SCH (21:50)
[2019-08-23] MEDS: TIMOLOL MALEATE 0.5% OPH SOLN 5 ML OD SCH (21:50)
[2019-08-23] MEDS: BRIMONIDINE TARTRATE 0.2% OPH SOLN 5 ML OD SCH (21:50)
[2019-08-23] MEDS ORDERED: BIMATOPROST OU SCH (22:00)
[2019-08-23] MEDS ORDERED: (PENDING PHARMACY ID) (Rosuvastatin Calcium [Rosuvastatin Calcium] 10 MG) PO SCH (22:00)
--- NOTE | 2019-08-23 22:46 | EKG REPORT ---
SEVERITY:- ABNORMAL ECG - SINUS RHYTHM ATRIAL PREMATURE COMPLEX BIATRIAL ABNORMALITIES INFERIOR INFARCT, OLD CONSIDER ANTERIOR INFARCT BORDERLINE PROLONGED QT INTERVAL : Confirmed by: Ellen Mcmanus MD 23-Aug-2019 22:45:56
[2019-08-24] MEDS: LEVALBUTEROL HCL NEB 0.63 MG/3 ML AMPUL NEB SCH ×4 (00:26→23:53)
[2019-08-24] MEDS: IPRATROPIUM/ALBUTEROL 0.5-2.5 MG/3 ML AMPUL NEB SCH ×2 (02:16→08:53)
[2019-08-24] MEDS: HEPARIN SOD (PORCINE) 5,000 UNIT/ML 1 ML VIAL SUBCUT SCH ×3 (05:43→22:07)
[2019-08-24] MEDS: ACETYLCYSTEINE 20% SOLN 800 MG/4 ML VIAL.NEB NEB SCH ×2 (08:53→20:36)
[2019-08-24] MEDS: LEVOFLOXACIN 500 MG/D5W RTU 500 MG/100 ML RTUPB IV SCH (09:19)
[2019-08-24] MEDS: LOSARTAN POTASSIUM 25 MG TABLET PO SCH (09:21)
[2019-08-24] MEDS: METHYLPREDNISOLONE INJ 40 MG/1 ML SDV IV SCH (09:24)
[2019-08-24] MEDS: DILTIAZEM HCL 180 MG CAPSULE.CR PO SCH (09:29)
[2019-08-24] MEDS: TIMOLOL MALEATE 0.5% OPH SOLN 5 ML OD SCH ×2 (09:32→22:06)
[2019-08-24] MEDS: BRIMONIDINE TARTRATE 0.2% OPH SOLN 5 ML OD SCH ×2 (09:32→22:07)
[2019-08-24] MEDS ORDERED: (PENDING PHARMACY ID) (Vit A/Vit C/Vit E/Zinc/Copper [Preservision Areds Softgel] 1 CAP) PO SCH (10:00)
[2019-08-24] MEDS ORDERED: OLMESARTAN MEDOXOMIL 5 MG PO SCH (10:00)
[2019-08-24] MEDS ORDERED: IPRATROPIUM/ALBUTEROL 0.5-2.5 MG/3 ML AMPUL NEB PRN (11:23)
[2019-08-24] MEDS: PREDNISOLONE ACETATE 1% OPH SUSP 5 ML OD SCH (12:50)
--- NOTE | 2019-08-24 13:12 | PDOC PROGRESS REPORT ---
Subjective Progress Note for:: 08/24/19 Subjective:: No acute event overnight. Upon encounter this morning, patient appears comfortable. She says her shortness of breath has significantly improved. Denies chest pain. Will decrease IV steroids today. Reason For Visit: ACUTE HYPOXIC RESPIRATORY FAILURE, COPD Physical Exam Vital Signs: Temp Pulse Resp BP Pulse Ox 97.6 F 63 18 113/48 L 92 08/24/19 11:02 08/24/19 11:02 08/24/19 11:02 08/24/19 11:02 08/24/19 11:02 Intake & Output 08/23/19 08/24/19 08/25/19 06:59 06:59 06:59 Intake Total 147 103 Output Total 300 Balance -153 103 Weight 102 lb 161 lb 6.054 oz 101 lb 15.985 oz General appearance: PRESENT: no acute distress, well-developed, well-nourished Head exam: PRESENT: atraumatic, normocephalic Eye exam: PRESENT: conjunctiva pink, EOMI, PERRLA. ABSENT: scleral icterus Ear exam: PRESENT: normal external ear exam Mouth exam: PRESENT: moist, tongue midline Neck exam: ABSENT: carotid bruit, JVD, lymphadenopathy, thyromegaly Respiratory exam: PRESENT: rhonchi. ABSENT: rales, wheezes Cardiovascular exam: PRESENT: RRR. ABSENT: diastolic murmur, rubs, systolic murmur Pulses: PRESENT: normal dorsalis pedis pul GI/Abdominal exam: PRESENT: normal bowel sounds, soft. ABSENT: distended, guarding, mass, organolmegaly, rebound, tenderness Rectal exam: PRESENT: deferred Neurological exam: PRESENT: alert, awake, oriented to person, oriented to place, oriented to time, oriented to situation, CN II-XII grossly intact. ABSENT: motor sensory deficit Results Laboratory Results: 08/23/19 03:15 08/23/19 03:15 08/23/19 08/23/19 03:15 03:15 Troponin I 0.014 NT-Pro-B Natriuret Pep 1680 H Impressions: Chest X-Ray 08/23/19 03:39 IMPRESSION: Emphysema without pneumonia. Chest/Abdomen CTA 08/23/19 07:33 IMPRESSION: 1. NORMAL CTA OF THE CHEST. NO PULMONARY EMBOLI. 2. MARKED DIFFUSE EMPHYSEMATOUS CHANGES WITH CHRONIC SCARRING. PROMINENT MUCOUS PLUGGING IN THE LOWER LOBE BRONCHI. 3. ECTATIC THORACIC AORTA. LOWER THORACIC AORTIC ANEURYSM MEASURING 4 CM. Assessment and Plan - Diagnosis (1) Acute respiratory failure with hypoxia Is this a current diagnosis for this admission?: Yes Plan: Improving. Secondary to COPD exacerbation and mucous plugging. Off BIPAP. Saturating well on nasal cannula. (2) COPD exacerbation Is this a current diagnosis for this admission?: Yes Plan: Improving. Decrease IV steroids. Continue aggressive pulmonary toilet and Mucomyst nebulization, breathing treatments and CPT. Sputum culture pending. (3) Mucus plugging of bronchi Is this a current diagnosis for this admission?: Yes Plan: As per #2. (4) Hypertension Qualifiers: Hypertension type: essential hypertension Qualified Code(s): I10 - Essential (primary) hypertension Is this a current diagnosis for this admission?: Yes - Time Time Spent with patient: 25-34 minutes
[2019-08-24] MEDS: LATANOPROST 0.005% OPH SOLN 2.5 ML OU SCH (22:10)
[2019-08-24] MEDS: ATORVASTATIN CALCIUM 20 MG TABLET PO SCH (22:10)
[2019-08-25] MEDS: HEPARIN SOD (PORCINE) 5,000 UNIT/ML 1 ML VIAL SUBCUT SCH ×3 (06:52→22:47)
[2019-08-25] MEDS: ACETYLCYSTEINE 20% SOLN 800 MG/4 ML VIAL.NEB NEB SCH (08:50)
[2019-08-25] MEDS: LEVALBUTEROL HCL NEB 0.63 MG/3 ML AMPUL NEB SCH ×3 (08:51→23:51)
[2019-08-25] MEDS: LEVOFLOXACIN 500 MG/D5W RTU 500 MG/100 ML RTUPB IV SCH (09:17)
[2019-08-25] MEDS: DILTIAZEM HCL 180 MG CAPSULE.CR PO SCH (09:17)
[2019-08-25] MEDS: LOSARTAN POTASSIUM 25 MG TABLET PO SCH (09:18)
[2019-08-25] MEDS: BRIMONIDINE TARTRATE 0.2% OPH SOLN 5 ML OD SCH ×2 (09:19→22:51)
[2019-08-25] MEDS: TIMOLOL MALEATE 0.5% OPH SOLN 5 ML OD SCH ×2 (09:19→22:51)
[2019-08-25] MEDS ORDERED: METHYLPREDNISOLONE INJ 40 MG/1 ML SDV IV SCH (10:00)
[2019-08-25] MEDS: PREDNISOLONE ACETATE 1% OPH SUSP 5 ML OD SCH (11:47)
--- NOTE | 2019-08-25 14:48 | PDOC PROGRESS REPORT ---
Subjective Progress Note for:: 08/25/19 Subjective:: States her breathing is improved. Reason For Visit: ACUTE HYPOXIC RESPIRATORY FAILURE, COPD Physical Exam Vital Signs: Temp Pulse Resp BP Pulse Ox 98.0 F 70 15 116/64 96 08/25/19 11:45 08/25/19 11:45 08/25/19 11:45 08/25/19 11:45 08/25/19 11:45 Intake & Output 08/24/19 08/25/19 08/26/19 06:59 06:59 06:59 Intake Total 147 1123 1050 Output Total 300 1400 Balance -153 -277 1050 Weight 73.2 kg 48.6 kg General appearance: PRESENT: no acute distress Head exam: PRESENT: atraumatic, normocephalic Eye exam: PRESENT: conjunctiva pink. ABSENT: scleral icterus Mouth exam: PRESENT: tongue midline Neck exam: ABSENT: carotid bruit, JVD, lymphadenopathy, thyromegaly Respiratory exam: PRESENT: unlabored, wheezes - Scattered bilaterally. ABSENT: rales, rhonchi Cardiovascular exam: PRESENT: RRR, +S1, +S2. ABSENT: diastolic murmur, rubs, systolic murmur Pulses: PRESENT: normal dorsalis pedis pul Vascular exam: PRESENT: normal capillary refill GI/Abdominal exam: PRESENT: normal bowel sounds, soft. ABSENT: distended, guarding, mass, organolmegaly, rebound, tenderness Rectal exam: PRESENT: deferred Extremities exam: PRESENT: full ROM. ABSENT: calf tenderness, clubbing, pedal edema Neurological exam: PRESENT: alert, awake, oriented to person, oriented to place, oriented to time, oriented to situation, CN II-XII grossly intact. ABSENT: motor sensory deficit Psychiatric exam: PRESENT: appropriate affect, normal mood. ABSENT: homicidal ideation, suicidal ideation Skin exam: PRESENT: dry, intact, warm. ABSENT: cyanosis, rash Results Laboratory Results: 08/23/19 03:15 08/23/19 03:15 08/23/19 11:30 Sputum Gram Stain - Final 08/23/19 11:30 Sputum Sputum Culture - Final Yeast, Not Sangita Albicans Normal [place] 08/23/19 08/23/19 03:15 03:15 Troponin I 0.014 NT-Pro-B Natriuret Pep 1680 H Impressions: Chest X-Ray 08/23/19 03:39 IMPRESSION: Emphysema without pneumonia. Chest/Abdomen CTA 08/23/19 07:33 IMPRESSION: 1. NORMAL CTA OF THE CHEST. NO PULMONARY EMBOLI. 2. MARKED DIFFUSE EMPHYSEMATOUS CHANGES WITH CHRONIC SCARRING. PROMINENT MUCOUS PLUGGING IN THE LOWER LOBE BRONCHI. 3. ECTATIC THORACIC AORTA. LOWER THORACIC AORTIC ANEURYSM MEASURING 4 CM. Assessment and Plan - Diagnosis (1) COPD exacerbation Is this a current diagnosis for this admission?: Yes Plan: Change to oral Prednisone (2) Leukocytosis Qualifiers: Leukocytosis type: unspecified Qualified Code(s): D72.829 - Elevated white blood cell count, unspecified Is this a current diagnosis for this admission?: Yes (3) Mucus plugging of bronchi Is this a current diagnosis for this admission?: Yes Plan: Continue with Chest PT as tolerated (4) Acute respiratory failure with hypoxia Is this a current diagnosis for this admission?: Yes Plan: Improving. Secondary to COPD exacerbation and mucous plugging. Off BIPAP. - Plan Summary Summary: We will continue with current management, taper steroids as per response, DC Mucinex per patient request and hopefully discharge home in the next 24 to 48 hours if stable
[2019-08-25] MEDS: ATORVASTATIN CALCIUM 20 MG TABLET PO SCH (22:49)
[2019-08-26] MEDS: LATANOPROST 0.005% OPH SOLN 2.5 ML OU SCH ×2 (05:42→21:21)
[2019-08-26] MEDS: LEVALBUTEROL HCL NEB 0.63 MG/3 ML AMPUL NEB SCH ×2 (07:31→15:53)
[2019-08-26] MEDS: HEPARIN SOD (PORCINE) 5,000 UNIT/ML 1 ML VIAL SUBCUT SCH ×3 (08:18→21:15)
[2019-08-26] MEDS: DILTIAZEM HCL 180 MG CAPSULE.CR PO SCH (10:00)
[2019-08-26] MEDS: LOSARTAN POTASSIUM 25 MG TABLET PO SCH (10:00)
[2019-08-26] MEDS: BRIMONIDINE TARTRATE 0.2% OPH SOLN 5 ML OD SCH ×2 (10:01→21:14)
[2019-08-26] MEDS: TIMOLOL MALEATE 0.5% OPH SOLN 5 ML OD SCH ×2 (10:01→21:14)
[2019-08-26] MEDS: PREDNISONE 20 MG TABLET PO SCH (10:01)
[2019-08-26] MEDS: LEVOFLOXACIN 500 MG TABLET PO SCH (10:01)
[2019-08-26] MEDS: PREDNISOLONE ACETATE 1% OPH SUSP 5 ML OD SCH (12:04)
--- NOTE | 2019-08-26 13:44 | PDOC DISCHARGE SUMMARY ---
Impression - Admit/DC Date/PCP Admission Date/Primary Care Provider: 08/23/19 12:07 KELSY FLOR MD Discharge Date: 08/28/19 - Discharge Diagnosis (1) COPD exacerbation Is this a current diagnosis for this admission?: Yes (2) Leukocytosis Is this a current diagnosis for this admission?: Yes (3) Mucus plugging of bronchi Is this a current diagnosis for this admission?: Yes (4) Acute respiratory failure with hypoxia Is this a current diagnosis for this admission?: Yes (5) Diastolic CHF with preserved left ventricular function, NYHA class 2 Is this a current diagnosis for this admission?: Yes (6) Thoracic aortic aneurysm Is this a current diagnosis for this admission?: Yes - Additional Information Resuscitation Status: Do Not Resuscitate Discharge Activity: Activity As Tolerated Referrals: KELSY FLOR MD [Primary Care Provider] - Follow up as needed (no answer at office l/m about follow up) Prescriptions: Prednisone [Deltasone 20 mg Tablet] 40 mg PO DAILY #5 tablet Furosemide [Lasix 20 mg Tablet] 20 mg PO QAM #30 tablet Levofloxacin [Levaquin 500 mg Tablet] 500 mg PO DAILY #5 tablet Home Medications: Bimatoprost [Lumigan] 1 drop OU QHS 09/17/17 Diltiazem HCl [Diltiazem 24Hr ER (Cd)] 180 mg PO DAILY 09/17/17 Vit A/Vit C/Vit E/Zinc/Copper [Preservision Areds Softgel] 1 cap PO DAILY 09/17/17 Albuterol Sulfate [Albuterol Sulfate Hfa] 1 puff IH Q6HP PRN 08/07/19 Brimonidine Tartrate/Timolol [Combigan 0.2%-0.5% Eye Drops] 1 drop OD BID 08/07/19 Budesonide/Formoterol Fumarate [Symbicort HFA 160-4.5 mcg Inhaler 6 gm] 1 puff IH Q12 08/07/19 Prednisolone Acetate [Inflamase 1% Oph Susp 5 ml] 1 drop OD NOON 08/07/19 Rosuvastatin Calcium 10 mg PO QHS 08/07/19 Levalbuterol HCl [Xopenex Neb 0.63 mg/3 ml Ampul] 0.63 mg NEB RTQ8 #90 08/09/19 Levalbuterol HCl [Xopenex Neb 1.25 mg/3 ml Ampul] 1.25 mg NEB RTQ6HP PRN #60 vi al.neb 08/09/19 Olmesartan Medoxomil [Benicar] 5 mg PO DAILY 08/23/19 Levofloxacin [Levaquin 500 mg Tablet] 500 mg PO DAILY #5 tablet 08/26/19 Prednisone [Deltasone 20 mg Tablet] 40 mg PO DAILY #5 tablet 08/26/19 Furosemide [Lasix 20 mg Tablet] 20 mg PO QAM #30 tablet 08/28/19 History of Present Illiness History of Present Illness: TIFFANIE MEIER is a 84 year old female Hospital Course Hospital Course: Patient presents to the emergency room with complaint of difficulty breathing and shortness of breath. She was found to be initially hypotensive, tachycardic and hypoxic with oxygen saturation in the 70s. She was placed on BiPAP and treated with bronchodilators. She did improve. CT scan ruled out PE but did confirm severe emphysema and prominent mucus plugging in the left lower bronchus. She was treated with IV steroids as well as aggressive pulmonary toilet. During the course of her illness patient was found to have an elevated BNP. Subsequent chest x-ray revealed pulmonary vascular congestion and so an echocardiogram was done which revealed normal left ventricular ejection fraction, grade 2 of 4 diastolic dysfunction, moderate amount of tricuspid regurgitation and pulmonary hypertension. Patient was treated with intravenous Lasix with continuing improvement in her respiratory symptoms. She has been discharged home on 20 mg of Lasix. She is also to receive heart failure medication prior to discharge. Patient will need further evaluation and medication management and adjustment of medications. White count has dropped to 14,000 from a high of 22.6 on admission and BNP slightly decreased at 1350. Physical Exam Vital Signs: Temp Pulse Resp BP Pulse Ox 97.2 F 68 20 137/68 H 90 L 08/26/19 07:29 08/26/19 11:41 08/26/19 11:41 08/26/19 11:41 08/26/19 11:41 Intake & Output 08/25/19 08/26/19 08/27/19 06:59 06:59 06:59 Intake Total 1123 2080 30 Output Total 1400 Balance -277 2080 30 Weight 48.6 kg 50.8 kg General appearance: PRESENT: no acute distress Head exam: PRESENT: atraumatic Neck exam: PRESENT: full ROM. ABSENT: JVD Respiratory exam: PRESENT: clear to auscultation rian. ABSENT: accessory muscle use Cardiovascular exam: PRESENT: RRR, +S1, +S2 GI/Abdominal exam: PRESENT: soft. ABSENT: tenderness Rectal exam: PRESENT: deferred Musculoskeletal exam: PRESENT: ambulatory Neurological exam: PRESENT: alert, awake, oriented to person, oriented to place, oriented to time Psychiatric exam: PRESENT: appropriate affect Results Laboratory Results: WBC 22.6 10^3/uL (4.0-10.5) H 08/23/19 03:15 RBC 4.54 10^6/uL (3.72-5.28) 08/23/19 03:15 Hgb 14.5 g/dL (12.0-15.5) 08/23/19 03:15 Hct 42.8 % (36.0-47.0) 08/23/19 03:15 MCV 94 fl (80-97) 08/23/19 03:15 MCH 31.9 pg (27.0-33.4) 08/23/19 03:15 MCHC 33.8 g/dL (32.0-36.0) 08/23/19 03:15 RDW 14.5 % (11.5-14.0) H 08/23/19 03:15 Plt Count 271 10^3/uL (150-450) 08/23/19 03:15 Lymph % (Auto) Not Reportable 08/23/19 03:15 Cooper % (Auto) Not Reportable 08/23/19 03:15 Eos % (Auto) Not Reportable 08/23/19 03:15 Baso % (Auto) Not Reportable 08/23/19 03:15 Absolute Neuts (auto) Not Reportable 08/23/19 03:15 Absolute Lymphs (auto) Not Reportable 08/23/19 03:15 Absolute Monos (auto) Not Reportable 08/23/19 03:15 Absolute Eos (auto) Not Reportable 08/23/19 03:15 Absolute Basos (auto) Not Reportable 08/23/19 03:15 Total Counted 100 08/23/19 03:15 Seg Neutrophils % Not Reportable 08/23/19 03:15 Seg Neuts % (Manual) 85 % (42-78) H 08/23/19 03:15 Band Neutrophils % 4 % (3-5) 08/23/19 03:15 Lymphocytes % (Manual) 4 % (13-45) L 08/23/19 03:15 Monocytes % (Manual) 6 % (3-13) 08/23/19 03:15 Eosinophils % (Manual) 1 % (0-6) 08/23/19 03:15 Basophils % (Manual) 0 % (0-2) 08/23/19 03:15 Abs Neuts (Manual) 20.1 10^3/uL (1.7-8.2) H 08/23/19 03:15 Abs Lymphs (Manual) 0.9 10^3/uL (0.5-4.7) 08/23/19 03:15 Abs Monocytes (Manual) 1.4 10^3/uL (0.1-1.4) 08/23/19 03:15 Absolute Eos (Manual) 0.2 10^3/uL (0.0-0.6) 08/23/19 03:15 Abs Basophils (Manual) 0.0 10^3/uL (0.0-0.2) 08/23/19 03:15 Platelet Comment ADEQUATE 08/23/19 03:15 RBC Morph Comment NORMO-CYTIC/CHROMIC 08/23/19 03:15 Sodium 137.0 mmol/L (137-145) 08/23/19 03:15 Potassium 4.1 mmol/L (3.6-5.0) 08/23/19 03:15 Chloride 96 mmol/L (98-107) L 08/23/19 03:15 Carbon Dioxide 35 mmol/L (22-30) H 08/23/19 03:15 Anion Gap 6 (5-19) 08/23/19 03:15 BUN 38 mg/dL (7-20) H 08/23/19 03:15 Creatinine 0.81 mg/dL (0.52-1.25) 08/23/19 03:15 Est GFR ( Amer) > 60 (>60) 08/23/19 03:15 Est GFR (MDRD) Non-Af > 60 (>60) 08/23/19 03:15 Glucose 83 mg/dL (75-110) 08/23/19 03:15 Lactic Acid 1.7 mmol/L (0.7-2.1) 08/23/19 03:15 Calcium 8.8 mg/dL (8.4-10.2) 08/23/19 03:15 Total Bilirubin 0.6 mg/dL (0.2-1.3) 08/23/19 03:15 Direct Bilirubin 0.1 mg/dL (0.0-0.4) 08/23/19 03:15 Neonat Total Bilirubin Not Reportable 08/23/19 03:15 Neonat Direct Bilirubin Not Reportable 08/23/19 03:15 Neonat Indirect Bili Not Reportable 08/23/19 03:15 AST 31 U/L (14-36) 08/23/19 03:15 ALT 30 U/L (<35) 08/23/19 03:15 Alkaline Phosphatase 108 U/L (38-126) 08/23/19 03:15 Troponin I 0.014 ng/mL 08/23/19 03:15 NT-Pro-B Natriuret Pep 1680 pg/mL (<450) H 08/23/19 03:15 Total Protein 5.9 g/dL (6.3-8.2) L 08/23/19 03:15 Albumin 3.1 g/dL (3.5-5.0) L 08/23/19 03:15 Influenza A (Rapid) NEGATIVE (NEGATIVE) 08/23/19 11:30 Influenza B (Rapid) NEGATIVE (NEGATIVE) 08/23/19 11:30 08/23/19 08/23/19 03:15 03:15 Troponin I 0.014 NT-Pro-B Natriuret Pep 1680 H EKG Comments: Sinus rhythm Left atrial hypertrophy Impressions: Chest X-Ray 08/23/19 03:39 IMPRESSION: Emphysema without pneumonia. Chest/Abdomen CTA 08/23/19 07:33 IMPRESSION: 1. NORMAL CTA OF THE CHEST. NO PULMONARY EMBOLI. 2. MARKED DIFFUSE EMPHYSEMATOUS CHANGES WITH CHRONIC SCARRING. PROMINENT MUCOUS PLUGGING IN THE LOWER LOBE BRONCHI. 3. ECTATIC THORACIC AORTA. LOWER THORACIC AORTIC ANEURYSM MEASURING 4 CM. Plan Health Concerns: Patient with newly diagnosed diastolic CHF with preserved ejection fraction. Will suggest follow-up with baked goods stock clerk if appropriate. Medication management including reevaluation of Lasix and follow-up BMP and CBC is also suggested. Patient did have a leukocytosis prior to discharge but this was improved from admission and there was no evidence of clinical decompensation Thoracic aortic aneurysm is an incidental finding. Outpatient follow-up is suggested Time Spent: Greater than 30 Minutes Stroke Is this a Stroke Patient?: No Acute Heart Failure - Is this a Heart Failure Patient?: Yes Documentation of LVEF assessment?: Yes LVEF < 40%?: No- if no continue to question #3 a) Discharged on ACEI?: N/A Discharged on ARB b) Discharges on ARB?: Yes Reason(s) not discharged on ARNI: New onset heart failure 3. Anticoagulant therapy for permanect/persistent/paraoxysmal Afib or Aflutter: N/A Follow-up Appointment scheduled within 7 days?: Yes
[2019-08-26 14:22] LABS: HEMOGLOBIN 13.8 g/dL (12.0-15.5); MEAN CORPUSCULAR HEMOGLOBIN 31.6 pg (27.0-33.4); MEAN CORPUSCULAR HGB CONC 33.7 g/dL (32.0-36.0); MEAN CORPUSCULAR VOLUME 94 fl (80-97); PLATELET COUNT 350 10^3/uL (150-450); RED BLOOD COUNT 4.37 10^6/uL (3.72-5.28); RED CELL DISTRIBUTION WIDTH 14.5 % (11.5-14.0); WHITE BLOOD COUNT 17.9 10^3/uL (4.0-10.5)
[2019-08-26 14:39] LABS: ANION GAP 5 (5-19); BLOOD UREA NITROGEN 41 mg/dL (7-20); CALCIUM 9.2 mg/dL (8.4-10.2); CARBON DIOXIDE 39 mmol/L (22-30); CHLORIDE 92 mmol/L (98-107); GLUCOSE 165 mg/dL (75-110); POTASSIUM 4.5 mmol/L (3.6-5.0)
[2019-08-26 14:46] LABS: ABSOLUTE LYMPHOCYTES# (MANUAL) 0.4 10^3/uL (0.5-4.7); ABSOLUTE MONOCYTES # (MANUAL) 0.7 10^3/uL (0.1-1.4); BASOPHILS % (MANUAL) 0 % (0-2); EOSINOPHILS % (MANUAL) 0 % (0-6); LYMPHOCYTES % (MANUAL) 1 % (13-45); MONOCYTES % (MANUAL) 4 % (3-13); SEGMENTED NEUTROPHILS % (MAN) 94 % (42-78); TOTAL CELLS COUNTED 100
[2019-08-26 14:47] LABS: ANISOCYTOSIS SLIGHT; POIKILOCYTOSIS SLIGHT
[2019-08-26 14:48] LABS: PLATELET COMMENT ADEQUATE; TEAR DROP CELLS SLIGHT
--- NOTE | 2019-08-26 15:26 | PDOC PROGRESS REPORT ---
Subjective Progress Note for:: 08/26/19 Subjective:: States her breathing is improved. WAnts to go home Reason For Visit: ACUTE HYPOXIC RESPIRATORY FAILURE, COPD Physical Exam Vital Signs: Temp Pulse Resp BP Pulse Ox 97.2 F 68 20 137/68 H 90 L 08/26/19 07:29 08/26/19 11:41 08/26/19 11:41 08/26/19 11:41 08/26/19 11:41 Intake & Output 08/25/19 08/26/19 08/27/19 06:59 06:59 06:59 Intake Total 1123 2080 30 Output Total 1400 Balance -277 2080 30 Weight 48.6 kg 50.8 kg General appearance: PRESENT: no acute distress, cooperative Neck exam: PRESENT: full ROM. ABSENT: JVD, tenderness Respiratory exam: PRESENT: decreased breath sounds, rhonchi, tachypnea Cardiovascular exam: PRESENT: RRR, +S1, +S2 GI/Abdominal exam: PRESENT: soft. ABSENT: tenderness Musculoskeletal exam: PRESENT: ambulatory Neurological exam: PRESENT: alert, awake, oriented to person, oriented to place, oriented to time Results Laboratory Results: 08/26/19 14:14 08/26/19 14:14 08/26/19 08/26/19 14:14 14:14 WBC 17.9 H RBC 4.37 Hgb 13.8 Hct 41.0 MCV 94 MCH 31.6 MCHC 33.7 RDW 14.5 H Plt Count 350 Seg Neutrophils % Not Reportable Sodium 135.7 L Potassium 4.5 Chloride 92 L Carbon Dioxide 39 H Anion Gap 5 BUN 41 H Creatinine 0.97 Est GFR ( Amer) > 60 Glucose 165 H Calcium 9.2 08/23/19 11:30 Sputum Gram Stain - Final 08/23/19 11:30 Sputum Sputum Culture - Final Yeast, Not Sang[place] Albicans Normal [place] 08/23/19 08/23/19 03:15 03:15 Troponin I 0.014 NT-Pro-B Natriuret Pep 1680 H Impressions: Chest X-Ray 08/23/19 03:39 IMPRESSION: Emphysema without pneumonia. Chest/Abdomen CTA 08/23/19 07:33 IMPRESSION: 1. NORMAL CTA OF THE CHEST. NO PULMONARY EMBOLI. 2. MARKED DIFFUSE EMPHYSEMATOUS CHANGES WITH CHRONIC SCARRING. PROMINENT MUCOUS PLUGGING IN THE LOWER LOBE BRONCHI. 3. ECTATIC THORACIC AORTA. LOWER THORACIC AORTIC ANEURYSM MEASURING 4 CM. Assessment and Plan - Diagnosis (1) COPD exacerbation Is this a current diagnosis for this admission?: Yes (2) Leukocytosis Qualifiers: Leukocytosis type: unspecified Qualified Code(s): D72.829 - Elevated white blood cell count, unspecified Is this a current diagnosis for this admission?: Yes Plan: Likely secondary to steroids as she was on prednisone as outpatient. Repeat WBC today is down to 17,000 however I would like to see sustained decrease prior to discharge. Especially given patient's presentation on admission. We will keep her overnight and repeat CBC. If she remains stable then she can be discharged home in a.m. (3) Mucus plugging of bronchi Is this a current diagnosis for this admission?: Yes Plan: Continue with Chest PT as tolerated patient of Mucinex as per her request (4) Acute respiratory failure with hypoxia Is this a current diagnosis for this admission?: Yes Plan: Improving. Secondary to COPD exacerbation and mucous plugging. Off BIPAP. Taper oxygen as per response - Plan Summary Summary: We will continue with current management, repeat CBC in a.m. and DC in a.m. if stable
[2019-08-26] MEDS: ATORVASTATIN CALCIUM 20 MG TABLET PO SCH (21:15)
[2019-08-27] MEDS: LEVALBUTEROL HCL NEB 0.63 MG/3 ML AMPUL NEB SCH ×4 (00:44→23:36)
[2019-08-27] MEDS: HEPARIN SOD (PORCINE) 5,000 UNIT/ML 1 ML VIAL SUBCUT SCH ×3 (05:03→21:24)
[2019-08-27 05:44] LABS: ABSOLUTE BASOPHILS # (AUTO) 0.1 10^3/uL (0.0-0.2); ABSOLUTE LYMPHOCYTES (AUTO) 1.3 10^3/uL (0.5-4.7); ABSOLUTE MONOCYTES (AUTO) 1.1 10^3/uL (0.1-1.4); ABSOLUTE NEUT (AUTO) 16.4 10^3/uL (1.7-8.2); BASOPHILS % (AUTO) 0.5 % (0-2); EOSINOPHILS % (AUTO) 0.1 % (0-6); HEMATOCRIT 40.5 % (36.0-47.0); HEMOGLOBIN 13.4 g/dL (12.0-15.5); LYMPHOCYTES % (AUTO) 6.7 % (13-45); MEAN CORPUSCULAR HGB CONC 33.2 g/dL (32.0-36.0); MEAN CORPUSCULAR VOLUME 94 fl (80-97); PLATELET COUNT 338 10^3/uL (150-450); RED BLOOD COUNT 4.33 10^6/uL (3.72-5.28); RED CELL DISTRIBUTION WIDTH 14.6 % (11.5-14.0); SEGMENTED NEUTROPHILS % (AUTO) 86.7 % (42-78); TOTAL CELLS COUNTED % (AUTO) 100 %
--- NOTE | 2019-08-27 09:36 | RADIOLOGY REPORT (SQ) ---
EXAM DESCRIPTION: CHEST 2 VIEWS COMPLETED DATE/TIME: 08/27/2019 9:13 am REASON FOR STUDY: COPD, hypoxemia COMPARISON: CT angio chest 08/23/2019 Chest films 08/23/2019, 08/07/2019, 06/19/2019 EXAM PARAMETERS: NUMBER OF VIEWS: two views TECHNIQUE: Digital Frontal and Lateral radiographic views of the chest acquired. RADIATION DOSE: NA LIMITATIONS: none FINDINGS: LUNGS AND PLEURA: Lungs are hyperinflated and hyperlucent from obstructive disease. Along the periphery of the right and left lung base contact tissue Justin lines are present indicatin g mild interstitial edema. Move No gross alveolar edema or pleural effusions. No pneumothorax. MEDIASTINUM AND HILAR STRUCTURES: No masses or contour abnormalities. HEART AND VASCULAR STRUCTURES: Heart normal size. No evidence for failure. BONES: Convex rightward thoracic curvature HARDWARE: None in the chest. OTHER: No other significant finding. IMPRESSION: Justin lines at both lung bases. Fluid overload or mild interstitial edema Obstructive lung disease. TECHNICAL DOCUMENTATION: JOB ID: [id number] 2010 [employer]- All Rights Reserved Reading location - IP/workstation name: [email or web address]
[2019-08-27] MEDS: PREDNISONE 20 MG TABLET PO SCH (09:50)
[2019-08-27] MEDS: LEVOFLOXACIN 500 MG TABLET PO SCH (09:50)
[2019-08-27] MEDS: LOSARTAN POTASSIUM 25 MG TABLET PO SCH (09:50)
[2019-08-27] MEDS: DILTIAZEM HCL 180 MG CAPSULE.CR PO SCH (09:51)
[2019-08-27] MEDS: BRIMONIDINE TARTRATE 0.2% OPH SOLN 5 ML OD SCH ×2 (09:51→21:27)
[2019-08-27] MEDS: TIMOLOL MALEATE 0.5% OPH SOLN 5 ML OD SCH ×2 (09:52→21:26)
[2019-08-27 10:46] LABS: BLOOD UREA NITROGEN 44 mg/dL (7-20); CALCIUM 9.2 mg/dL (8.4-10.2); CHLORIDE 94 mmol/L (98-107); GLUCOSE 110 mg/dL (75-110)
[2019-08-27 10:52] LABS: CARBON DIOXIDE 36 mmol/L (22-30)
[2019-08-27 10:59] LABS: ANION GAP 4 (5-19)
[2019-08-27] MEDS ORDERED: FUROSEMIDE INJ/PF 40 MG/4 ML SDV IV ONE (11:30)
[2019-08-27] MEDS: PREDNISOLONE ACETATE 1% OPH SUSP 5 ML OD SCH (11:46)
--- NOTE | 2019-08-27 20:24 | XCELERA REPORT ---
[address] [address] Transthoracic Echocardiogram Report Name: TIFFANIE MEIER Age: 84 yrs Gender: Female : 1935 Patient Status: Inpatient Patient Location: [address] [place] [address] Study Date: 08/27/2019 01:52 PM Height: 64 in Weight: 111 lb BSA: 1.5 m2 Procedure: A complete two-dimensional transthoracic echocardiogram was performed (2D, M-mode, spectral and color flow Doppler). The study was technically difficult with many images being suboptimal in quality. Reason For Study: Fluid overload, Respiratory failure Ordering Physician: NOA CRUZ Performed By: Ameena Mckenzie Interpretation Summary The left ventricular ejection fraction is normal. There is mild concentric left ventricular hypertrophy. The left ventricle is grossly normal size. Doppler measurements suggest pseudonormalized left ventricular relaxation, which is associated with grade II/IV or mild to moderate diastolic dysfunction Wall motion cannot be accurately commented on, but no definite regional wall motion abnormalities noted. The right ventricular systolic function is normal. The left atrium is mildly dilated. The right atrium is normal in size There is a trace to mild amount of mitral regurgitation There is mild mitral stenosis There is no aortic valve stenosis There is a trace amount of aortic regurgitation There is a moderate amount of tricuspid regurgitation There is moderate pulmonary hypertension by echo Right ventricular systolic pressure is estimated to be elevated at 50-60mmHg. The aortic root is not well visualized but is probably normal size. The inferior vena cava appeared normal and decreased > 50% with respiration (RAP 5-10 mmHg) There is no pericardial effusion. MMode/2D Measurements & Calculations RVDd: 2.5 cm LVIDd: 3.6 cm FS: 29.4 % Ao root diam: 2.5 cm IVSd: 0.98 cm LVIDs: 2.6 cm EDV(Teich): 56.1 ml Ao root area: 5.0 cm2 LVPWd: 0.98 cm ESV(Teich): 24.0 ml LA dimension: 3.0 cm EF(Teich): 57.2 % Doppler Measurements & Calculations MV E max vinayak: MV P1/2t max vinayak: Ao V2 max: LV V1 max P.5 cm/sec 114.5 cm/sec 154.6 cm/sec 6.7 mmHg MV A max vinayak: MV P1/2t: 101.9 msec Ao max P.6 mmHgLV V1 max: 151.5 cm/sec MVA(P1/2t): 2.2 cm2 129.8 cm/sec MV E/A: 0.76 MV dec slope: 329.0 cm/sec2 MV dec time: 0.36 sec PA V2 max: TR max vinayak: MV P1/2t-pr_phl: 82.9 cm/sec 352.9 cm/sec 101.9 msec PA max P.8 mmHgTR max P.8 mmHg Left Ventricle The left ventricle is grossly normal size. There is mild concentric left ventricular hypertrophy. The left ventricular ejection fraction is normal. Doppler measurements suggest pseudonormalized left ventricular relaxation, which is associated with grade II/IV or mild to moderate diastolic dysfunction. Wall motion cannot be accurately commented on, but no definite regional wall motion abnormalities noted. Right Ventricle The right ventricle is grossly normal size. There is normal right ventricular wall thickness. The right ventricular systolic function is normal. Atria The right atrium is normal in size. The left atrium is mildly dilated. Interarterial septum not well visualized and not well dopplered. Cannot comment on ASD/PFO presence. Mitral Valve There is moderate mitral leaflet calcification. There is moderate mitral annular calcification. There is mild mitral stenosis. There is a trace to mild amount of mitral regurgitation. Aortic Valve The aortic valve opens well. There is no aortic valve stenosis. There is a trace amount of aortic regurgitation. Tricuspid Valve The tricuspid valve is not well visualized, but is grossly normal. There is no tricuspid stenosis. There is a moderate amount of tricuspid regurgitation. There is moderate pulmonary hypertension by echo. Right ventricular systolic pressure is estimated to be elevated at 50-60mmHg. Pulmonic Valve The pulmonic valve is not well seen, but is grossly normal. Great Vessels The aortic root is not well visualized but is probably normal size. The inferior vena cava appeared normal and decreased > 50% with respiration (RAP 5-10 mmHg). Effusions There is no pericardial effusion. : NOA CRUZ Shyamal
[2019-08-27] MEDS: ATORVASTATIN CALCIUM 20 MG TABLET PO SCH (21:22)
[2019-08-27] MEDS: LATANOPROST 0.005% OPH SOLN 2.5 ML OU SCH (21:25)
[2019-08-28] MEDS: HEPARIN SOD (PORCINE) 5,000 UNIT/ML 1 ML VIAL SUBCUT SCH ×2 (05:31→13:31)
[2019-08-28 06:14] LABS: BLOOD UREA NITROGEN 48 mg/dL (7-20); CALCIUM 9.1 mg/dL (8.4-10.2); CHLORIDE 90 mmol/L (98-107); GLUCOSE 96 mg/dL (75-110); POTASSIUM 4.6 mmol/L (3.6-5.0)
[2019-08-28 06:19] LABS: HEMATOCRIT 43.5 % (36.0-47.0); HEMOGLOBIN 14.9 g/dL (12.0-15.5); MEAN CORPUSCULAR HGB CONC 34.3 g/dL (32.0-36.0); MEAN CORPUSCULAR VOLUME 93 fl (80-97); PLATELET COUNT 323 10^3/uL (150-450); RED BLOOD COUNT 4.66 10^6/uL (3.72-5.28); RED CELL DISTRIBUTION WIDTH 14.7 % (11.5-14.0)
[2019-08-28 06:33] LABS: ANION GAP 5 (5-19); CARBON DIOXIDE 39 mmol/L (22-30)
[2019-08-28 07:02] LABS: ABSOLUTE LYMPHOCYTES# (MANUAL) 1.1 10^3/uL (0.5-4.7); ABSOLUTE MONOCYTES # (MANUAL) 0.7 10^3/uL (0.1-1.4); BASOPHILS % (MANUAL) 0 % (0-2); EOSINOPHILS % (MANUAL) 0 % (0-6); LYMPHOCYTES % (MANUAL) 5 % (13-45); MONOCYTES % (MANUAL) 5 % (3-13); SEGMENTED NEUTROPHILS % (MAN) 87 % (42-78); TOTAL CELLS COUNTED 100
[2019-08-28 07:03] LABS: PLATELET COMMENT ADEQUATE
[2019-08-28 07:04] LABS: ANISOCYTOSIS SLIGHT
[2019-08-28] MEDS: LEVALBUTEROL HCL NEB 0.63 MG/3 ML AMPUL NEB SCH (08:08)
--- NOTE | 2019-08-28 08:42 | PDOC PROGRESS REPORT ---
Subjective Progress Note for:: 08/27/19 Subjective:: States her breathing is improved. WAnts to go home however CXR obtained which still shows some congestion Reason For Visit: ACUTE HYPOXIC RESPIRATORY FAILURE, COPD Physical Exam Vital Signs: Temp Pulse Resp BP Pulse Ox 98.6 F 62 19 136/68 H 94 08/27/19 23:30 08/28/19 07:00 08/27/19 23:30 08/27/19 23:30 08/27/19 23:30 Intake & Output 08/27/19 08/28/19 08/29/19 06:59 06:59 06:59 Intake Total 760 2679 Balance 760 2679 Weight 50.6 kg 49.8 kg General appearance: PRESENT: no acute distress, well-nourished Head exam: PRESENT: atraumatic, normocephalic Eye exam: PRESENT: conjunctiva pink. ABSENT: scleral icterus Neck exam: ABSENT: carotid bruit, JVD, lymphadenopathy, thyromegaly Respiratory exam: PRESENT: decreased breath sounds, rhonchi, unlabored. ABSENT: rales, wheezes Cardiovascular exam: PRESENT: RRR. ABSENT: diastolic murmur, rubs, systolic murmur Pulses: PRESENT: normal dorsalis pedis pul Vascular exam: PRESENT: normal capillary refill GI/Abdominal exam: PRESENT: normal bowel sounds, soft. ABSENT: distended, guarding, mass, organolmegaly, rebound, tenderness Rectal exam: PRESENT: deferred Extremities exam: PRESENT: full ROM. ABSENT: calf tenderness, clubbing, pedal edema Neurological exam: PRESENT: alert, awake, oriented to person, oriented to place, oriented to time, oriented to situation, CN II-XII grossly intact. ABSENT: motor sensory deficit Psychiatric exam: PRESENT: appropriate affect, normal mood. ABSENT: homicidal ideation, suicidal ideation Skin exam: PRESENT: dry, intact, warm. ABSENT: cyanosis, rash Results Laboratory Results: 08/28/19 04:59 08/28/19 04:59 08/27/19 08/28/19 08/28/19 04:59 04:59 04:59 WBC 14.0 H RBC 4.66 Hgb 14.9 Hct 43.5 MCV 93 MCH 32.0 MCHC 34.3 RDW 14.7 H Plt Count 323 Seg Neutrophils % Not Reportable Sodium 133.5 L 134.3 L Potassium 5.0 4.6 Chloride 94 L 90 L Carbon Dioxide 36 H 39 H Anion Gap 4 L 5 BUN 44 H 48 H Creatinine 1.01 0.94 Est GFR ( Amer) > 60 > 60 Glucose 110 96 Calcium 9.2 9.1 08/23/19 07:00 Blood Blood Culture - Final NO GROWTH IN 5 DAYS 08/23/19 03:15 Blood Blood Culture - Final NO GROWTH IN 5 DAYS 08/23/19 08/23/19 08/28/19 03:15 03:15 04:59 Troponin I 0.014 NT-Pro-B Natriuret Pep 1680 H 1350 H Impressions: Chest/Abdomen CTA 08/23/19 07:33 IMPRESSION: 1. NORMAL CTA OF THE CHEST. NO PULMONARY EMBOLI. 2. MARKED DIFFUSE EMPHYSEMATOUS CHANGES WITH CHRONIC SCARRING. PROMINENT MUCOUS PLUGGING IN THE LOWER LOBE BRONCHI. 3. ECTATIC THORACIC AORTA. LOWER THORACIC AORTIC ANEURYSM MEASURING 4 CM. Chest X-Ray 08/27/19 00:00 IMPRESSION: Justin lines at both lung bases. Fluid overload or mild interstitial edema Obstructive lung disease. Assessment and Plan - Diagnosis (1) COPD exacerbation Is this a current diagnosis for this admission?: Yes Plan: Cont to oral Prednisone (2) Leukocytosis Qualifiers: Leukocytosis type: unspecified Qualified Code(s): D72.829 - Elevated white blood cell count, unspecified Is this a current diagnosis for this admission?: Yes Plan: WBC still elevated, will recheck in am (3) Mucus plugging of bronchi Is this a current diagnosis for this admission?: Yes (4) Acute respiratory failure with hypoxia Is this a current diagnosis for this admission?: Yes Plan: Improving. Secondary to COPD exacerbation and mucous plugging. Off BIPAP. However need to r/o CHF as etiology - Plan Summary Summary: Due to PVC on CXR will obtain echo, diurese and follow up on repeat CBC in a.m. and DC in a.m. if stable
[2019-08-28] MEDS: LOSARTAN POTASSIUM 25 MG TABLET PO SCH (09:39)
[2019-08-28] MEDS: PREDNISONE 20 MG TABLET PO SCH (09:39)
[2019-08-28] MEDS: DILTIAZEM HCL 180 MG CAPSULE.CR PO SCH (09:41)
[2019-08-28] MEDS: TIMOLOL MALEATE 0.5% OPH SOLN 5 ML OD SCH (09:41)
[2019-08-28] MEDS: BRIMONIDINE TARTRATE 0.2% OPH SOLN 5 ML OD SCH (09:41)
[2019-08-28] MEDS ORDERED: FUROSEMIDE INJ/PF 40 MG/4 ML SDV IV SCH (10:00)
[2019-08-28 12:56] VITALS: BP 136/68
[2019-08-28] MEDS: PREDNISOLONE ACETATE 1% OPH SUSP 5 ML OD SCH (13:29)
== END 2019-08-28 14:03 | disposition home health service (06) | DRG 205 ==
LOC: ER 02:59 → EH 12:07 → 4S 13:36
PROVIDERS: ADMIT Internal Medicine; ATTEND Internal Medicine
DX: T17.590A Other foreign object in bronchus causing asphyxiation, initial encounter (principal); E43 Unspecified severe protein-calorie malnutrition; I50.31 Acute diastolic (congestive) heart failure; J96.01 Acute respiratory failure with hypoxia; I11.0 Hypertensive heart disease with heart failure; X58.XXXA Exposure to other specified factors, initial encounter; I71.2 Thoracic aortic aneurysm, without rupture; J43.9 Emphysema, unspecified; I27.20 Pulmonary hypertension, unspecified; I07.1 Rheumatic tricuspid insufficiency; E78.5 Hyperlipidemia, unspecified; I48.0 Paroxysmal atrial fibrillation; D72.829 Elevated white blood cell count, unspecified; T38.0X5A Adverse effect of glucocorticoids and synthetic analogues, initial encounter; Z66 Do not resuscitate; Z79.899 Other long term (current) drug therapy; Z79.52 Long term (current) use of systemic steroids; Z99.81 Dependence on supplemental oxygen; Y92.9 Unspecified place or not applicable
CPT/HCPCS: 36415; 71045; 71046; 71275; 80048; 80053; 83605; 83880; 84484; 85025; 87040; 87070; 87205; 87804; 93005; 93010; 93306; 94640; 94667; 94668; 94799; 96365; 99285; J0696; J1644; J1940; J1956; J2920; J3490; J7512; J7614; J7620